=== PATIENT | female | born 1980 | race Caucasian/White ===

== ENCOUNTER 2019-11-01 19:19 | Emergency (ER) | payer BC ==
--- OUTSIDE RECORDS SUMMARY | 2019-11-01 19:48 | XMS REPORT | Continuity of Care Document ---
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 [place], 6075 [address], [place] tel:[phone] 0001 - [facility] Primary Intractable Oct-0 ANDREZ STEPHANIE. [facility], Edis Marti migraine with [address] aura with 8 [facility], Berto status [place], [place], [address]. [place] tel:[phone] [place], 6075 [address], [place] tel:[phone] 0001 - [facility] Walk[facility]In [facility] otitis 8-201 CHRISTOPHER. 33-57 [facility] mediaAcute 8 91 [facility] Nursery [place] [facility], [facility] [address], Street, unspecified [place], [address]. [facility], [place], al history of tel:[phone], [place] nicotine 4151 tel: dependence [phone] 0001 - S Primary Intractable ANDREZKAREN BROWN. [facility], Edis Marti migraine with 7-[address] aura without 8 [facility], Berto status [facility], [place], [address]. [place] bid tel:63 [place], [place], obesityNeuropa 6075 [address], [place] thyWhiplash tel: injury to [phone] neck, subsequent encounterBMI pediatric, 85% to less than 95th percentile for ageSprain of ligaments of cervical spine, initial encounterPerso n injured in unsp motor-vehicle accident, traffic, initBody mass index (BMI) 50-59.9 , adult 0001 - S Primary Migraine aura, 0 [facility]. [facility], Edis Marti persistent, 9-[address] intractable 8 [facility], Berto [place], [place], [address]. [place] tel:+63 [place], [place], 6075 [address], [place] tel: [phone] 0001 - S Primary Intractable ANDREZKAREN BROWN. [facility], Edis Marti migraine with 4-[address] aura without 8 [facility], Berto status [facility], [place], [address]. [place] erate episode tel:[phone] [place], [place], of recurrent 6075 [address], [place] major tel: depressive [phone] disorderNeurop athyMorbid obesityBody mass index (BMI) 50-59.9 , adult 0001 - S Primary Intractable ANDREZKAREN RAINEYAH. [facility] Inc, Edis Marti migraine with 8-[address] aura without 8 [facility], Berto status [facility], [place], [address]. [place] acco tel:[phone] [place], [place], dependenceBipo 6075 [address], [place] lar 2 disorder tel: [phone] 0001 - S Primary Major Shayne-2 BARBOUR [facility] Inc, Care depressive 6-201 RANDI. 4417 -57 [place] disorder, 8 Mark Berto recurrent, [facility], Street, moderateMorbid Mark, [place] (severe) [address]. [place], obesity due to tel:[phone], [place] excess 7365 tel:60 calories [phone] 0001 - [facility] Primary Migraine, ROOT COCO. [facility], Care [place] unspecified, 1-201 [address] , [address] [place] [address] not 8 [place], [address]. Street, without status tel:[phone] [place] migrainosus [address] [place] [address], [address], [place] tel: [phone] 0001 - [facility] Primary Migraine, ROOT COCO. [facility], Care [place] unspecified, 4-201 507 [facility], [address] [place] [address] not 8 [facility] [place], [address]. Street, without status tel:[phone] [place] migrainosus 6075 [place], [address], [place] tel: [phone] 0001 - [facility] Primary Intractable Dec-2 ROOT COCO. [facility], Edis aMrti migraine with 5-[address] aura with 8 [place], [place], [address]. Street, migrainosusAne tel:[phone] [place] mary jo, 6075 [place], [place], unspecified [address], [place] typeHypothyroi tel: dism, [phone] unspecified typeElevated glucose level 0001 - [facility] Primary Chronic Apr-0 ANDREZ BROWN. [facility], Care [place] midline low 4-[address] back pain with 8 SP, Berto left-sided [place], [place], [place], [address]. [place] chronic tel:[phone] [place], [place], painClass 3 6075 [address], [place] obesity tel:60 without [phone] serious comorbidity with body mass index (BMI) of 50.0 to 59.9 in adult, unspecified obesity typeBody mass index (bmi) 50-59.9 , adult 0001 - [facility] Body mass Mar-2 SALEEM [facility], Management index (BMI) 1-201 LUDY. 52 33-57 50-59.9 , [address], [address], spondylosisSpo 2, [place] Marti ndylolysis, [place], [place], [place] [address]. [address], [place] unspecifiedDor tel:[phone] tel:+60 salgia, 7468 [phone] unspecifiedObe sity, unspecified 0001 - [facility] Primary Hospital Nov- ANDREZ BROWN. [facility], Edis Marti discharge 4-201 507 [facility], [address] follow-upMigra 8 SP, Berto ine without [facility], [place], [address]. [place] without status tel:[phone] [place], [place], migrainosus, 6075 [address], [place] not tel:+60 intractableUns [phone] pecified asthma, uncomplicatedP neumonia, unspecified organismPerson al history of nicotine dependence 0001 - [facility] Walk-In Acute OFELIA PRASAD. [facility], Center pharyngitis, 9 [facility] 33-57 [facility] unspecified 8 [facility] Nursery [address], Street, [facility], [address]. [place], [place], tel:[phone], [place] 4151 tel:+[phone] 0001 - [facility] Primary Intractable ANDREZ BROWN. [facility], Edis Marti migraine with 1- [address] aura without 8 SP, Berto status [facility], [place], [address]. [place] pital tel:[phone] [place], [place], discharge 6075 [address], [place] follow-up tel:[phone] 0001 - [facility] Primary Acute ROOT COCO. [facility], Edis Marti left-sided low 8-[address] back pain 7 [place], [address]. Street, sciatica tel:[phone] [place] 6075 [place], [address], [place] tel:[phone] 0001 - S Walk-In Viral upper Dec-0 BERG CRISTOFER. S Inc, Center respiratory 7201 21 North 33-57 [facility] tract [address], B[place] Bridge infectionOther [place], [place], Street, viral agents [address], [place]. [place] as the cause tel:[phone] [place], of diseases 9816 [address], [place] classified tel:+60 elsewherePerso [phone] nal history of nicotine dependence 0001 - [facility] Bilateral low Nov-2 MUKESH S Inc, Management back pain with BELLA. 52 33-57 sciatica, 7 Berto Nursery sciatica [place], Street, laterality [facility] [place], [address]. [place], [place], anticoagulant tel:[phone], [place] therapyBody 5898 tel:+60 mass index [id number] (BMI) 45.0-49.9, adult 0001 - S Walk-In DysuriaUrinary Nov-1 HOWARD BEACHSTEIN S Inc, Center tract 9201 CHRISTOPHER. 33-57 [facility] infection, 7 91 [facility] Bridge site [address], Street, specified [facility], [address]. [place], tel:[phone], [place] 4151 tel:+60 [phone] 0001 - [facility] Ortho Acute pain of Nov-0 LOWRIE CASEY. [employer] [facility], Ctr Ortho left [facility] 4433 33-[address] Berto oral pain E, Mark, [place], [facility] [place], [address]. [place] left knee tel:[phone] [place], [place], 2220 [address], [place] tel:[phone] 0001 - S Ortho Pain in Nov-0 LOWRIE CASEY. S Inc, Ctr Ortho unspecified S 4433 33-[address] Berto E, Mark, [place], [address]. [place] tel:[phone] [place], [place], 2220 [address], [place] tel:+[phone] 0001 - [facility] WS Preop Nov-0 SHUKRI S Inc, Cardiology cardiovascular MYRIAM. 30 33-57 examPSVT 7 Berto Thomson (paroxysmal Street, Suite Street, supraventricul 250, [place] ar [facility], [place], [facility], [place], tachycardia) [address]. [address], [place] tel:[phone] tel:+ [phone] 0001 - [facility] Primary Major Oct-3 ROOT COCO. S Inc, Care [place] depressive 1 [address] , 33-57 City disorder, 7 [place], [facility], [address]. [address], [facility], tel:[phone] [place] unspecifiedCos 6075 [place], [place], tochondritis [address], [place] tel:+ [phone] 0001 - [facility] Mark Medication Jun- Perfect ChannelMERLYNAmedrixWarren State Hospital, IM Primary managementChro 6- YA MANUJA. Care julianne left-sided 4417 [facility] pain [facility], with Internal [place] left-sided Medicine, [place], [place], [place], [address], [place] chronic [address]. tel:+ painAcute pain tel:[phone] of left knee 7365 0001 - [facility] Mark Chronic Sep-2 Perfect ChannelSTEPANApportableMARTIN S [facility], IM Primary GERDBenign YA MANUJA. Care atrial 7 4417 Mark Berto arrhythmiaOthe [facility], [place], r pulmonary Internal [place] embolism Medicine, [place], [place], [place], [address], [place] cor pulmonale, [address]. tel: unspecified tel:[phone] chronicityHypo 7365 thyroidism (acquired)Pers onal history of nicotine dependence 0001 - [facility] Walk-In Acute Sep-1 BUFFUM S Inc, Center suprapubic 0-201 ISIS. 7 [facility] painExcessive 7 Mark Berto Bridge vaginal [facility], [place], bleeding [place], [place], [place] [address]. [place], [place], tel:[phone], [place] 2144 tel:[phone] 0001 - [facility] Primary Seborrheic Aug-2 ROOT COCO. S Inc, Care [place] dermatitisMigr 507 [facility] 3357 [facility] facundo, 7 [facility] [place], [address]. Street, not tel:[phone] [place] intractable, [address] [place] [address], without status [address], [place] migrainosusObe tel:+60 sity, [phone] unspecified obesity severity, unspecified obesity typeBody mass index (BMI) 45.0-49.9, adult 0001 - [facility] Walk-In Hypotension, INDIO CAMPBELL. [facility], Center unspecified [facility]7 [place] 33-[address], Street, [address]. [place] tel:[phone] [place], 2[address], [place] tel:[phone] 0001 - [facility] Primary Obesity, ROOT COCO. [facility], Care [place] unspecified [address] obesity 7 [facility] [place], [address]. Street, unspecified tel:[phone] [place] obesity [address] [place] [address], typeChest [address], [place] pain, tel:+60 unspecified [phone] typeMigraine, unspecified, not intractable, without status migrainosus 0001 - [facility] Walk-In Skin infection Nov- CLEM HORN. [facility], Center [facility]7 [place] 33-57 [facility] [address] [place] [address], Street, [address]. [place] tel:[phone] [place], 2[address], [place] tel:[phone] 0001 - [facility] Primary Neurotic Mar-0 KAREN [facility], Care [place] excoriationsPo LUDY. [facility] [address] lyarthralgia 7 [facility], Street, [facility], [address]. [place], tel:[phone], [place] 6075 tel:[phone] [phone] 0001 - [facility] Walk-In De Quervain's DC S [facility], Center tenosynovitis, NAYELI. 91 -57 [facility] rightViral URI 7 [facility] Berto Bridge with cough [address], Street, [facility], [place], [place], [address]. [address], [place] tel:[phone] tel:[phone] 0001 - S Ortho De Quervain's CATARINA S Inc, Ctr Ortho tenosynovitis, 0-201 IRENA. [facility] 57 right 7 [address] [facility] [address], Street, [place], [place] [address]. [place], tel:[phone], [place] 2220 tel:[phone] 0001 - [facility] Primary Wrist pain, JORGE S Inc, Care [place] right 7-201 UPASANA. 4417 -57 [facility] 7 [facility], [place], [place], [place] [address]. [place], tel:[phone], [place] 7365 tel:[phone] 0001 - S Walk-In Croup, KONEFAL S Inc, Center spasmodicAcute 3-201 KACZYNSKI 57 [facility] pharyngitis, 6 EDU. [address] Nurs[address] Bridge unspecifiedTob Main , [place], acco use [place], [place], [place] [address]. [place], tel:[phone], [place] 7171 tel:[phone] 0001 - S Primary Acute pain of DEMAINE MARY. S Inc, Care [place] left 4-201 507 [facility], -57 [facility] shoulderAcute 6 SP, Berto left-sided [place], [place], [place], [address]. [place] painArm tel:[phone] [place], paresthesia, 6075 [address], [place] leftLow back tel:+1-60 painCervicalgi [phone] a 0001 - S Primary Moderate Jun- KAREN S Inc, Care [place] episode of 3-201 LUDY. 507 33-57 City recurrent [address], Berto major [facility], Street, depressive [place], [place], [address]. [place], [place], tel:[phone], [place] 6075 tel:[phone] 0001 - S Primary Moderate Sep-2 KAREN [employer] Inc, Care [place] episode of LUDY. 507 33-57 City recurrent 6 Main , Nursery major SPC, Street, depressive [facility], [address]. [place], tel:[phone], [place] 6075 tel:[phone] 0001 - S Primary Tenderness of Sep-1 SHEIKH CHADWICK. [facility], Care [place] chest wall 507 [facility], 33-57 City 6 SPC, Berto [place], [place], [address]. [place] tel:[phone] [place], [place], 6075 [address], [place] tel:[phone] 0001 - S Primary GERD with Apr-0 KAREN [employer] [facility], Care [place] esophagitis LUDY. [address] [place] [address] 6 [facility], [facility], Street, [facility], [address]. [place], tel:[phone], [place] 6075 tel:[phone] 0001 - S Primary Gastro-esophag Apr-0 EKHLAS [employer] [facility], Care [place] eal reflux HOSSAIN. 7 -[address] [place] [address] disease 6 [facility], Nursery without SP, Street, esophagitisSpr [facility] [place], [address]. [place], [place], ankle, tel:[phone], [place] unspecified 6075 tel:+160 ligament, [phone] subsequent encounter 0001 - [facility] Primary Sprain of left Aug-0 KAREN [employer] Inc, Care [place] ankle, LUDY. [address] [place] [address] unspecified 6 [facility], Nursery ligament, SP, Street, subsequent [facility] [place], [address]. [place], [place], ity, walking, tel:[phone], [place] marching and 6075 tel:[phone] hiking [phone] 0001 - S Primary Weight loss Yosef-0 KAREN [employer] [facility], Care [place] counseling, LUDY. 507 33-57 [facility] encounter 6 [facility], Berto forObesity, [facility], Street, [place], [address]. [place], [place], severity, tel:[phone], [place] unspecified 6075 tel:+60 obesity [phone] typeSevere episode of recurrent major depressive disorder, without psychotic featuresSprain of other ligament of left ankle, subsequent encounterSprai n of other ligament of left ankle, initial encounterBody mass index (BMI) 50-59.9 , adult 0001 - S Pain in right Shayne-2 S Inc, Orthopedics kneePerson 3357 [place] consulting for 6 Nursery explanation of Street, [place], [address], [place] tel:+ [phone] 0001 - S Primary Right knee Shayne- KAREN S Inc, Care [place] injury, LUDY. 507 [facility] subsequent 6 [facility] encounterPatel [facility], Street, lofemoral [facility] [place], [address]. [facility], [place], both tel:[phone], [place] kneesUnspecifi 6075 tel:+60 ed injury of [phone] right lower leg, initial encounterPatel lofemoral disorders, left knee 0001 - S Pain in right Shayne- S Inc, Orthopedics knee [address] [place] [address], [place], [address], [place] tel: [phone] 0001 - S Primary Arthritis of Shayne-0 EKHLAS S Inc, Care [place] knee, right HOSSAIN. 507 57 [facility] 6 [facility], Berto [facility], Street, [place], [facility], [address]. [place], tel:[phone], [place] 6075 tel:+ [phone] 0001 - S [place] Encounter for JERAULD [employer] [facility], City therapeutic - WESTLEY. 4417 3357 Coumadin drug level 6 [facility], term (current) [facility] [place] [address]. [place], anticoagulants tel:[phone], [place] Personal 8833 tel:+1-60 history of [id number] other venous thrombosis and embolismEncoun ter for therapeutic drug monitoringLong -term Use of Anticoagulants Pulmonary Embolus 0001 - [facility] Primary Unspecified Apr-1 VAZQUEZ GLENN. [facility], [facility] asthma with 8201 3101 [address] 33-57 City (acute) [address] Road, Suite Nursery exacerbationTo 203, [place], [place], [place], [address]. [place] tel:[phone] [place], [place], 4822 [address], [place] tel:[phone] 0001 - S Walk-In Bronchitis Apr-0 SIRISHA HO. 4417 [facility], Center with 7 Mark 33-57 Mark bronchospasmTo 6 [facility] bacco use [place], [place], Street, [address]. [place] tel:[phone] [place], 2[address], [place] tel:[phone] 0001 - S Walk-In CroupTobacco Apr-0 WALKER [facility], Center use 4-201 LYNNETTE. 1302 33-57 [facility] [address] , [place], [place], Street, [address]. [place] tel:[phone] [place], [place], 2323 [address], [place] tel:[phone] 0001 - S Walk-In Right foot Mar-2 CRISTY WHITNEY. [facility], Center painActivity, 4433 Mark 33-57 [facility] other 6 [facility] specified Rheumatology, Street, [place], [place], [place] [address]. [place], tel:[phone], [place] 2879 tel:[phone] 0001 - [facility] Avulsion Mar-2 WARCHOCKI [facility], Orthopedics fracture of 201 CASEY. [facility] 33-57 [place] ankle, left, 33 Mark Nursery closed, Pkwy E, Street, initial [place], [place], [place] encounterOth [address]. [place], fracture of tel:[phone], [place] upper and 2220 tel:+1-60 lower end of [id number] left fibula, init 0001 [facility] Pain in Nov- WARCHOCKI [facility] Inc, Orthopedics unspecified CASEY. [facility] 33-57 [place] ankle and 6 4433 Mark Nursery joints of [address]kw[address], Street, unspecified [place], [place] [address]. [place], tel:[phone], [place] 2220 tel:[phone] [place] [address] Primary Avulsion Nov- HOSSAIN [facility] Inc, [facility] fracture of [facility] 3357 [facility] distal end of 6 -[address] [facility], EW3, [place], [place], [place], [address]. [address], [place] tel:[phone] tel:[phone] [place] [address] Sleep Sleep apnea, Nov- BHARATHI [facility], Center obstructiveAnx GERMAN. 93 3357 iety disorder, 6 [facility] [address], [facility], Street, y mass index [place] ([place], [address]. [place], 45.0-49.9, tel:[phone], [place] adultOther 2048 tel:+1-60 dorsalgiaGastr [phone] o-esophageal reflux disease without esophagitisSno ring 0001 [facility] Primary Intractable Nov-0 KAREN [facility] Inc, Care Fgiueroa migraine, LUDY. 507 [facility] unspecified [address] [place] [address], Nursery migraine [facility], Street, typeObstructiv [place], [address]. [place], tel:[phone], [place] 6075 tel:[phone] [place] [address] [place] Encounter for [facility] Inc, [facility] therapeutic 57 Coumadin drug level [address], term use of [place] anticoagulantP [place], ersonal [address], [place] history of tel:[phone] for therapeutic drug monitoringLong -term Use of Anticoagulants Pulmonary Embolus [address] [place] [address] Primary ImpetigoSprain CASEY [facility] Inc, Care [place] of other 7 CHRISTOPHER. 33-57 City ligament of [address], Nursery left ankle, [address]icable Street, sequelaPulmona Diseases, [place] ry [place], [place], [place], [place], [address]. [address], [place] term use of tel:[phone] tel:+ anticoagulant [phone] 0001 - S Sprain of left Oct- LOWRIE CASEY. [facility], Orthopedics ankle, 0-201 [facility] 4433 33-57 [place] unspecified [address] Nursery ligament, E, Mark, Street, [facility], [address]. [place] encounter tel:[phone] [place], [place], 2220 [address], [place] tel:+ [phone] 0001 - [facility] Primary Sprain Oct-0 NI ANIRUDH. [facility], Care [place] 4417 [place] [address], Street, [address]. [place] tel:[phone] [place], [address], [place] tel:+ [phone] 0001 - [facility] Figu[place] Encounter for Oct-0 [facility], [facility] therapeutic 57 Coumadin drug level 6 [facility], term (current) [place] use of [place], anticoagulants [address], [place] Personal tel:+[phone] history of [id number] pulmonary embolismEncoun ter for therapeutic drug monitoringLong -term Use of Anticoagulants Pulmonary Embolus 0001 - [facility] Primary Left ankle NI ANIRUDH. [facility] Inc, Care [place] strain, 4417 Mark 33-57 City subsequent 6 [facility], Nursery encounterStrai [place], [place], Street, n of [facility] [address]. [place] msl/tnd at tel:[phone] [place], ank/ft level, 7365 [address], [place] left foot, tel:[phone] 0001 - S Walk-In URI, OFELIA PRASAD. [facility], Center acuteTobacco 2- [facility] 91 33-57 [facility] use 6 [facility] Nurs[address], Street, [facility], [address]. [place], tel:[phone], [place] 4151 tel:[phone] 0001 - [facility] [place] Stress Sep- SHUMEYKO [facility] Inc, Gynecology incontinence 8-201 NATHAN. 4417 33-57 (female) 6 Mark Berto (male)Encounte [facility], r for other [place], [place], [place] specified [address]. [place], surgical tel:[phone], [place] aftercare 4496 tel:[phone] 0001 - [facility] [place] Family Sep- SHUMEYKO [facility], Gynecology planningStress 1-201 NATHAN. 4417 33-57 incontinence 6 Mark Thomson (female) [facility], (male)Other [place], [place] acute [address]. [place], postprocedural tel:[phone], [place] painBody mass 4496 tel:+160 index (BMI) [id number] 50-59.9 , adult 0001 - [facility] [place] Post-op Sep-0 BORDENET [facility] Inc, Gynecology painBody mass 8-201 LOREN. 52 33-57 index (BMI) 6 Berto Thomson 45.0-49.9, [place], adult [facility], [address]. [place], tel:[phone], [place] 5895 tel:[phone] 0001 - [facility] Primary Saddle embolus Sep-0 KAREN [facility], Care [place] of pulmonary 6 LUDY. 507 33-57 [facility] artery w/o 6 Main , Nursery acute cor SP, Street, pulmonale [facility], [address]. [place], tel:[phone], [place] 6075 tel:[phone] 0001 - [facility] [place] Pyuria Dec-3 NAYAN [facility], Gynecology 1-201 KAUSHAL. 4417 33-57 5 Mark Berto [facility], [place], [place], [place] [address]. [place], tel:[phone], [place] 4496 tel:[phone] 0001 - [facility] [place] Urinary tract Dec-3 SHUMEYKO [facility], Gynecology infection, NATHAN. 4417 3357 site not 5 Mark Berto specified [facility], [place], [place] [address]. [place], tel:[phone], [place] 4496 tel:[phone] 0001 - [facility] [place] Pre-procedure Dec-2 SHUMEYKO [facility], Gynecology lab exam NATHAN. 4417 33-57 5 Mark Berto [facility], [place], [place], [place] [address]. [place], tel:[phone], [place] 4496 tel:[phone] 0001 - [facility] Walk-In Blunt trauma, Nov- HOWARD BEACHSTEIN [employer], Center left eye, CHRISTOPHER. [facility] initial 5 91 [facility], ing against [place], [address]. [place], other objects, tel:[phone], [place] init encntr 4151 tel:[phone] 0001 - [facility] [place] Urinary tract Nov-2 SHUMEYKO [facility], Gynecology infection, NATHAN. [facility] 3357 site not 5 Mark Berto specified [facility], [place], [place], [place] [address]. [place], tel:[phone], [place] 4496 tel:[phone] 0001 - [facility] [place] Family Nov-1 SHUMEYKO [facility], Gynecology planningStress 2 NATHAN. 4157 33-57 incontinence 5 Markanalilia Thomson (female) [facility], (male)[place], [place] [address]. [place], pulmonary tel:[phone], [place] embolismUrinar 4496 tel:[phone] y tract [id number] infection, site not specifiedEncou nter for other preprocedural examination 0001 - [facility] Primary Pre-operative Nov- KAREN [facility], Care [place] clearanceAcute 2-201 LUDY. 507 33-57 City saddle [address], Nursery pulmonary SPC, Street, embolism [place], [address]. [facility], [place], cor tel:[phone], [place] pulmonaleEncou 6075 tel:[phone] nter for [id number] immunizationEn counter for sterilizationS tress incontinence (female) (male)Other pulmonary embolism without acute cor pulmonale 0001 - S Primary Bilateral low Nov-0 DEMAINE MARY. S Inc, Care [place] back pain with 2-[address], 33-57 City sciatica, 5 SP, Berto sciatica [place], [place], [address]. [place] unspecifiedSac tel:[phone] [place], rococcygeal 6075 [address], [place] pain tel:[phone] 0001 - S Walk-In Bilateral low Oct-2 INDIO CAMPBELL. S Inc, Center back pain with 4417 Mark 33-57 [facility] sciatica, 5 [facility] sciatica [place], [place], Street, laterality [address]. [place] unspecified tel:[phone] [place], 2144 [address], [place] tel:[phone] 0001 - S Mark Encounter for Oct- SHUMEYKO S Inc, Gynecology sterilizationS 5-201 NATHAN. 4417 33-57 tress 5 Mark Berto incontinence [facility], [place], (female) [place], [place] (male)Other [address]. [place], pulmonary tel:[phone], [place] embolism 4496 tel:[phone] without acute [phone] cor pulmonale 0001 - S Walk-In Chronic back Sep-2 WALKER S Inc, Center pain 6-201 LYNNETTE. 1302 33-57 [facility] [address], [facility] [place], [place], Street, [address]. [place] tel:[phone] [place], 2323 [address], [place] tel:[phone] 0001 - S Primary DepressionAlle Sep-1 KAREN S Inc, Care [place] rgyHerpetic 4-201 [address]UDY[address] whitlowEncount 5 [facility] er for smoking [facility], Street, cessation [facility], [address]. [place], onary embolism tel:[phone], [place] 6075 tel:[phone] 0001 - S [place] Stress Sep-0 NAYAN S Inc, Gynecology incontinenceAb 9-201 KAUSHAL. [facility] 33-57 normal 5 Mark Nursery PapVulvar [facility], lesion [place], [place] [address]. [place], tel:[phone], [place] 4496 tel:[phone] 0001 - S Mark Routine Aug-3 NAYAN [facility], Gynecology Gynecological KAUSHAL. [facility] 33-57 ExamPersonal 5 Mark Nursery history of [facility], pulmonary [place], [place], [place] embolismStress [address]. [place], incontinenceCo tel:[phone], [place] ntraception 4496 tel:[phone] 0001 - S Primary Melanocytic Aug-2 KAREN S Inc, Care [place] nevus 4-201 LUDY. [facility] [address] [place] [address], Street, [facility], [address]. [place], tel:[phone], [place] 6075 tel:[phone] 0001 - S Primary Migraine Aug-1 STRZALKA S Inc, Care [place] 4-201 ALEXIA. [facility] [address], Street, [facility], [address]. [place], tel:[phone], [place] 6075 tel:[phone] 0001 - S Primary Atypical Aug-1 KONEFAL S Inc, Care [place] nevusNeop, 0-[address] bng, skin, arm 5 EDU. 1302 E [facility], [place], [facility] [address]. [place], tel:[phone], [place] 7171 tel:[phone] 0001 - [facility] Primary Migraine Aug-0 CALDERON MILTON. [facility], Care [place] 6-201 4433 Mark 3357 [facility] [address], [place], [place], Street, [address]. [place] tel:[phone] [place], 2220 [address], [place] tel:[phone] 0001 - [facility] Walk-In Pharyngitis, Shayne-2 SIRISHA HO. 4417 [facility], Center acuteStrep 9-201 Mark 33-57 [facility] pharyngitis 5 [place], [place], [place], Street, [address]. [place] tel:[phone] [place], 2144 [address], [place] tel:[phone] 0001 - [facility] Walk-In URI Shayne-2 OFELIA PRASAD. [facility], Center 8-201 [facility] 91 33-57 [facility] 5 [facility], Street, [facility], [address]. [place], tel:[phone], [place] 4151 tel:[phone] 0001 - [facility] Walk-In Gastroenteriti May-0 ZARRINI [facility], Center sBack pain 1-201 JEREMY. 1302 33-57 [facility] [address] MA[address] , [facility], [place], [place], [place], [place] [address]. [place], tel:[phone], [place] 7171 tel:[phone] 0001 - [facility] Walk-In Lumbar Apr-1 TOKOS MANUEL. [facility], Center strainCumulati 1201 [address] 33-57 [facility] ve Trauma From [address] St, [place], [place], Street, [place] [address]. [place] tel:[phone] [place], 7[address], [place] tel:[phone] 0001 - [facility] Primary Back pain Apr-1 YUMIKO ROSE. [facility] Inc, Care [place] 0-201 4433 Mark 33-57 [facility] [address], [place], [place], Street, [address]. [place] tel:[phone] [place], 2220 [address], [place] tel:[phone] 0001 - S Walk-In Cough OFELIA PRASAD. [facility] Inc, Center 3-201 [facility] 91 33-57 [facility] 5 [facility] [address], Street, [facility], [address]. [place], tel:[phone], [place] 4151 tel:[phone] 0001 - S Walk-In URI, acute DC S Inc, Center 1-201 NAYELI. 91 33-57 [facility] 5 [facility] B[address], [place], [facility], [place], [address]. [address], [place] tel:[phone] tel:[phone] 0001 - S Walk-In Cough CONSOLAZIO [facility] Inc, Center 0-201 MARJAN. [facility] 33-57 Mark 5 [facility], [place], [place], [place] [address]. [place], tel:[phone], [place] 2144 tel:[phone] 0001 - S Walk-In Sciatica OFELIA PRASAD. [facility] Inc, Center 0-201 [facility] 91 33-57 [facility] 5 [facility] [address], Street, [facility], [address]. [place], tel:[phone], [place] 4151 tel:[phone] 0001 - [facility] Primary ObesityBMI January DEANA. [facility] Inc, Care [place] 40.0-44.9, 6-201 142 Rob[place] 33-57 [place] adultDietary 5 [facility] counseling in SPC, Street, obesity [facility], [address]. [place], tel:[phone], [place] 2660 tel:[phone] 0001 - [facility] Primary Anxiety YUMIKO ROSE. [facility] Referring [facility], Care [place] disorderTachyc 33 [place] Provider: 3357 [facility] ardia [address], [place] Thomson [place], [place], H, [facility] Street, [address]. 4433 [place] tel:[phone] [place], [place], [address], [address], [place], tel:+60 [place], [address]. [id number] tel:[phone] 2019 - [facility] Primary Encounter for Dec- [facility] Referring [facility], Care [place] therapeutic 5 COUMADIN Provider: [address] [place] [address] drug 4 CLINIC. 507 COUMADIN [facility], -term use of SP, [facility], 507 [place] [facility], [place], [place], [place], [address]. [facility], [address], [place] history of tel:[phone] [place] tel:+ pulmonary 6075 [place], [place], [id number] embolism [address]. tel:[phone] 2019 - [facility] Primary Palpitations Dec-0 YUMIKO ROSE. [facility], Care [place] 1 [address] [place] [address] [address], [place], Street, [address]. [place] tel:[phone] [place], 2220 [address], [place] tel:[phone] 2019 - [facility] Walk-In Acute Nov- [facility], Center conjunctivitis [place]. [address] [place] [address] 4 91 [facility], Street, [facility], [address]. [place], tel:[phone], [place] 4151 tel:[phone] 2019 - [facility] Primary Tachycardia Nov-1 YUMIKO ROSE. [facility] Referring [facility], Care [place] 8 4433 Mark Provider: [address] [place] [address] [address], [place]TON Thomson [place], [place], H, [facility] Street, [address]. 4433 [place] tel:[phone] [place], [place], [address], [address], [place], tel:+60 [place], [address]. [phone] tel:[phone] 2019 - Emergency Migraine Oct- YUMIKO ROSE. [facility] Inc, 1-201 4433 Mark 33-[address], [place], [place], Street, [address]. [place] tel:[phone] [place], 2220 [address], [place] tel:[phone] 0001 - [facility] Primary Encounter for Oct-1 JCFCC Referring [facility] Inc, Care [place] therapeutic 3-201 COUMADIN Provider: [address] [place] [address] drug 4 CLINIC. 507 COUMADIN Berto [facility] Street, -term use of [facility], [facility], 507 [place] anticoagulants [place], [place], [address]. [facility], [address], [place] embolism tel:[phone] [place] tel:[phone] [place], [place], 99[address]370 [address]. tel:[phone] 0001 - [facility] Primary Migraine Oct-0 KONEFAL [facility] Inc, Care [place] 3-201 KALISAYNSKI 33-57 [facility] EDU. [address] [place], [place], [place] [address]. [place], tel:[phone], [place] 7171 tel:[phone] 0001 - [facility] Walk-In Pediculosis Sep-2 OFELIA PRASAD. [facility], Center 9-201 SW 91 33-57 [facility] 4 [facility] Nursery [place] , Street, [facility], [address]. [place], tel:[phone], [place] 4151 tel:[phone] 0001 - [facility] Mark Encounter for Sep-2 LAKHANI [facility] Inc, Cardiology therapeutic 3-201 CATRACHO. 4417 33-57 drug [address] [facility], -term use of [place], [place] anticoagulants [address]. [place], Pulmonary tel:[phone], [place] embolism 8833 tel:[phone] 0001 - [facility] Primary Encounter for Sep-2 JCFCC Referring [facility] Inc, Care [place] therapeutic 2-201 COUMADIN Provider: [address] [place] [address] drug 4 CLINIC. 507 COUMAD[address] Berto [facility] Street, -term use of [facility], [facility], 507 [place] anticoagulants [place], [place], [place], [address]. [facility], [address], [place] embolism tel:+63 [place] tel:+ 6075 [place], [place], 898[address]287 [address]. tel:[phone] 0001 - [facility] Primary Back Sep-1 [facility] Inc, Care [place] painObesityOpi 0-201 33-57 [facility] ate addiction 4 [place], [address], [place] tel:[phone] 0001 - [facility] Primary Encounter for Sep-0 JCFCC [facility], Care [place] therapeutic 8-201 COUMADIN 33-57 [facility] drug 4 CLINIC. 507 [facility], -term use of [facility], [place] anticoagulants [place], [place], [place], [address]. [address], [place] history of tel:[phone] tel: pulmonary [phone] embolism 0001 - [facility] Primary Opiate Aug-2 [facility] Inc, Care [place] addictionChron 7-201 33-57 [facility] ic low back 4 [place], [address], [place] tel:[phone] 0001 - [facility] Primary Encounter for Aug-2 JCFCC [facility], Care [place] therapeutic 5-201 COUMADIN 33-57 [facility] drug 4 CLINIC. 507 [facility], -term use of [facility], [place] anticoagulants [place], [place], [place], [address]. [address], [place] history of tel:[phone] tel: pulmonary 6075 [phone] embolism 0001 - [facility] Primary Back pain Aug-1 YUMIKO ROSE. [facility] Inc, Care [place] 9-201 [address] [place] [address] [address], [place], [place], Street, [address]. [place] tel:[phone] [place], [place], 2220 [address], [place] tel:[phone] 0001 - [facility] Primary Encounter for Aug-1 JCFCC [facility], Care [place] therapeutic 8-201 COUMADIN 33-57 [facility] drug 4 CLINIC. [address], [address], -term use of [facility], [place] anticoagulants [place], [address]. [address], [place] embolism tel:[phone] tel:[phone] 0001 - [facility] Primary Encounter for JCFCC Referring [facility] Inc, Care [place] therapeutic 5-201 COUMADIN Provider: [address] [place] [address] drug CLINIC. 507 COUMADIN Berto [facility] Street, -term use of [facility], [facility], 507 [place] anticoagulants [place], [place], [address]. [facility], [address], [place] embolism tel:[phone] [place] tel:[phone] [place], [place], 06633182 [address]. tel:[phone] 0001 - [facility] Primary Encounter for [facility] Inc, Care [place] therapeutic 8-[address] [place] [address] drug CLINIC. 507 Berto [facility], -term use of [facility], [place] anticoagulants [place], [address]. [address], [place] embolism tel:[phone] tel:[phone] 0001 - [facility] Primary Back pain YUMIKO ROSE. S [facility] Inc, Care [place] 4-201 [address] [place] [address] Pkw[address], [place], [place], Street, [address]. [place] tel:[phone] [place], 2220 [address], [place] tel:[phone] 0001 - S Primary Encounter for [facility] Inc, Care [place] therapeutic 4-201 [address] [place] [address] drug CLINIC. 507 Berto [facility], Street, -term use of [facility], [place] anticoagulants [place], [address]. [address], [place] embolism tel:[phone] tel:[phone] 0001 - [facility] Primary Encounter for [facility] Inc, Care [place] therapeutic 1-[address] drug CLINIC. 507 Berto [facility], -term use of [facility], [place] anticoagulants [place], [place], [address]. [address], [place] embolism tel:[phone] tel:[phone] 0001 - [facility] Primary Pulmonary Mar- YUMIKO MILTON. [facility] Inc, Care [place] embolism 7-[address], [place], [place], Street, [address]. [place] tel:[phone] [place], 2220 [address], [place] tel:[phone] 0001 - [facility] Primary Encounter for Mar- JCFCC [facility] Inc, Care [place] therapeutic 7- COUMADIN [address] [place] [address] drug [address] [place] [address], -term use of SP, [place] anticoagulants [place], [place], [place], [address]. [address], [place] embolism tel:[phone] tel:[phone] 0001 - [facility] Primary Migraine Shayne- [facility], Care [place] 8 -[address] [place] [address] 4 [facility], [place], [address], [place] tel:[phone] 0001 - [facility] Primary Lumbago with January- YUMIKO ROSE. [facility], Care [place] sciatica 0-[address], [place], [place], Street, [address]. [place] tel:[phone] [place], 2220 [address], [place] tel:[phone] 0001 - [facility] Primary Back pain January- YUMIKO ROSE. [facility], Care [place] 3-[address], [place], [place], Street, [address]. [place] tel:[phone] [place], 2220 [address], [place] tel:[phone] 0001 - [facility] Primary Chronic low Apr-2 SABA GILLIAM. Referring [facility] Inc, Care [place] back painOther [address] [place] [address], Provider: [address] [place] [address] Chronic Pain 4 [facility], MANE Thomson Dungannon[place], [address] [place] [address], [address]. [facility] tel:[phone] [facility], [place], [place], 6075 [place] [address], [place], [place], tel:+ [phone] tel:[phone] 0001 - [facility] Primary Back pain Apr-2 SULEMAN GARNER. [facility], Care [place] 3-201 OLL [address] [place] [address] 4 [place], [place], Street, [address]. [place] tel:[phone] [place], 2460 [address], [place] tel:[phone] 0001 - [facility] Primary Lumbar back Apr-2 YUMIKO ROSE. [facility] Referring [facility], Care [place] pain 3 4433 Mark Provider: [address] [place] [address] [address], MILTON CALDERON [facility], [place], H, [facility] Street, [address]. 4455 [place] tel:[phone] [place], [place], [address], [address], [facility], tel:+60 [place], [phone]. [phone] tel:[phone] 0001 - [facility] Primary Left lumbar Apr-0 [facility] radiculitis 8-201 MASSIEL. 800 33-57 4 [place], [place], Street, [address]. [place] tel:[phone] [place], 299[address], [place] tel:[phone] 0001 - [facility] Primary Abdominal Oct-1 [facility] PainBackache 5-201 MASSIEL. [facility] 33-57 3 [place], [place], Street, [address]. [place] tel:[phone] [place], 7[address], [place] tel:[phone] 0001 - [facility] Walk-In SinusitisBronc Sep-2 Referring [facility], Center hitisBronchiti 8 Provider: Mark s, Acute [address] [facility], Street, 4401 [place], [place], Pkwy E, [address], [place] Mark, tel:[phone] [place], [phone]. [phone] 0001 - [facility] Primary Lumbago with Aug- [facility], Care [place] sciatica 9-201 MASSIEL. 800 33-[address], [place], [place], Street, [address]. [place] tel:[phone] [place], [address], [place] tel:[phone] 0001 - [facility] Walk-In Otitis media Mar- Referring S Inc, Center NOSOtitis 6-201 Provider: 33-57 Mark media NOS [address] [facility], Street, 4401 [place], [place], Pkwy [address], [address], [place] Mark, tel:[phone] [place], [phone]. [phone] 0001 - S Walk-In Upper Mar- CONSOLAZIO Referring [facility], Center Respiratory 4-201 MARJAN. 4417 Provider: 33-57 Mark Infection, 3 Mark WALKIN [facility], [place], Street, [place], 4401 [place] [address]. [place], [place], tel:[phone] Pkwy [address], [address], [place] 2144 [place], tel:+60 [place], [phone]. [phone] 0001 - [facility] Walk-In Back pain in January- TOLLIVER Referring S [facility], Center pregnancyCompl 1- DIMPLE. Provider: 33-57 [facility] ication oth 3 4417 Mark WALKIN [facility] [place] spec preg, [facility], [facility], unspec [place], [place]. [place] episodeComplic [address]. [place], ation oth spec tel:[phone], [place] preg, unspec 2144 tel:[phone] 0001 - [facility] Primary Abdominal Apr-0 FOSTER S Inc, Care [place] PainAbdominal 5-201 MALENA. 800 33-[address], [place], [place], Street, [address]. [place] tel:[phone] [place], [place], [address], [place] tel:[phone] 0001 - [facility] Primary Abdominal Mar-1 [employer] S [facility], [facility] [place] PainUpper 9-201 MASSIEL. 800 33-[address], Nursery Infection, [place], [place], Street, AcuteAbdominal [address]. [place] PainUpper tel:[phone] [place], [place], Respiratory [phone], [place] Infection, tel:[phone] 2019 - [facility] Primary Abdominal Mar-1 [facility] S Inc, [place] PainAbdominal 1-201 MASSIEL. 800 33-57 PainLumbago 3 [facility], [place], [place], Street, [address]. [place] tel:[phone] [place], [place], [phone], [place] tel: [phone] 2019 - [facility] Primary LumbagoStrain Feb-1 [facility] Referring S Inc, [place] of lumbar 3-201 MASSIEL. 800 Provider: 33-57 regionAbdomina 3 [facility], MASSIEL [place], [place], [facility], [place], PainLumbagoLum [address]. 800 Shannan Marti bar Sprain Or tel:[phone] [place] [facility], [place], [place], StrainAbdomina [address] [place] [address], [address], [place], [address]. tel: tel: [phone] 2019 - [facility] Primary Abdominal Feb-0 [facility] Referring S Inc, Care [place] PainAbdominal 5-201 MASSIEL. 800 Provider: 33-57 Pain 3 [facility], [place], [place], [facility], Street, [address]. Eder Marti tel:[phone] [facility], [place], [place], [facility]4 [place], [address], [place], [address]. tel: tel: [phone] 2019 - [facility] Primary Huy-2 [facility] Inc, Care [place] test/exam, 8-201 MASSIEL. 800 33-57 positive 3 [facility] [place]and[place], [place], Street, l [address]. Figueroa painGERDAbdomi tel:[phone] [place], nal PainGERD [address], [place] tel: [phone] 2019 - [facility] Walk-In Positive Sep- Referring S Inc, Center test 7201 Provider: 33-57 [facility] 3 [address]ALK[address] [place] [facility], [facility], [address], [place] tel:+ [phone] 2019 - [facility] Walk-In Sinusitis, Nov-1 JAE MEYERS. Referring [facility], Center AcuteSinusitis 3201 110 Central Provider: 33-57 Chris , Acute [address], MARVA [place], [place], [facility], [address]. HENRYLeif Marti tel:[phone] [place], [place], [address], [place] tel: [phone] 2019 - [facility] Primary Abdominal Nov-0 SKIADAS Referring [facility], Care [place] PainNausea And 7 MASSIEL. 800 Provider: 33-[address], MASSI[place] Thomson nal PainNausea [place], [place], [facility], [place], And Vomiting [address]. 800 Shannan Marti tel:[phone] [facility], [place], [place], [facility]4 [place], [address], [place], [address]. tel: tel:[phone] 0001 - [facility] Primary Abdominal Nov-0 SKIADAS Referring [facility], Care [place] PainNausea And 1 MASSIEL. 800 Provider: 33-57 VomitingAbdomi 2 Shannan Johnston, MASSI[place] Thomson nal PainNausea [place], [place], [facility], And Vomiting [address]. 800 Shannan Marti tel:[phone] Road, [place], [place], 0444 [place], [address], [place], [address]. tel: tel:[phone] 2019 - [facility] Primary Abdominal Oct-1 SKIADAS Referring [facility], Care [place] PainGastroente 6-201 MASSIEL. 800 Provider: 33-[address], [place] Thomson PainNoninfecti [place], [place], [facility], ous [address]. 800 Shannan Marti Gastroenteriti tel:[phone] Road, [place], [place], s 0444 [place], [address], [place], [address]. tel: tel:[phone] 2019 - [facility] Primary Abdominal Sep-2 SKIADAS [facility] Inc, Care [place] PainDiarrhea 8-201 MASSIEL. 800 33-[address], [place], [place], Street, PainDiarrhea [address]. [place] NOSBackache tel:[phone] [place], [place], [address], [place] tel:[phone] 0001 - [facility] Primary Back pain Mar- S Inc, Care [place] 5-201 33-57 2 [place], [address], [place] tel:[phone] 0001 - [facility] Primary BackacheAbdomi Shayne- S Inc, Care [place] nal 9- 33-57 PainBackacheAb 2 [facility] [place], [address], [place] tel:[phone] 0001 - [facility] Primary Back pain January- S Inc, Care [place] 1- 33-57 2 [place], [address], [place] tel:[phone] 0001 - [facility] Walk-In Injury, OFELIA PRASAD. Referring [facility], [place] superficial, 3-201 SWIC 91 Provider: 33-57 [facility] corneaInjury, 2 [facility], [facility] [address], [facility], corneaInjuryUNC [place], [address]. [place], cornea tel:[phone], [place] 4151 tel:[phone] 0001 - [facility] Primary Sciatica Due Dec-3 SKIADAS Referring [facility], Care [place] To 0-201 MASSIEL. 800 Provider: 33-57 Displacement 2 MASSIEL [facility] [place], [place], [facility], Street, DiscSciatica [address]. 800 Shannan Marti Due To tel:[phone] Road, [place], [place], Displacement 0444 [place], [address], [place], [address]. tel:+60 DiscSciatica tel:[phone] Due To [id number] Displacement Of Lumbar DiscObesity 0001 - [facility] Primary Back pain Dec- S Inc, Care [place] 0-201 33-57 2 [place], [address], [place] tel:+ [phone] 0001 - S Primary Lumbago due to Mar-2 SKIADAS S Inc, Care [place] displacement 7-201 MASSIEL. 800 33-57 of 2 [facility], Nursery intervertebral [place], [place], Street, disc [address]. [place] tel:[phone] [place], [place], [address], [place] tel:[phone] 0001 - S Primary Depression Mar-2 S Inc, Care [place] 0-201 33-57 2 [facility], [place], [address], [place] tel:+ [phone] 0001 - S Primary Bipolar Mar-1 [facility] Inc, Care [place] affect, 6-201 MASSIEL. 800 33-57 depressedLumba 2 [facility] goRadiculiEunice, [place], Street, lumbosacralBip [address]. [place] olar affect tel:[phone] [place], disord, [address], [place] depressed, tel:[phone] unspecifiedLum [phone] bagoRadiculiti s, Thoracic or Lumbar 0001 - S Walk-In UTIUrinary Oct- Referring S Inc, Center Tract Provider: 33-57 [facility] InfectionHerpe 2 [address] s, genital CHENANGO [place], NOSUrinary BRIDGE. [place], [place], InfectionHerpe [address], [place] s, genital tel:[phone] NOSUrinary [phone] Tract InfectionHerpe s, genital NOSUrinary Tract InfectionHerpe s, genital NOSUrinary Tract InfectionHerpe s, genital NOS 0001 - S Primary Abdominal b- [facility] Inc, Care [place] PainGERDDiarrh 33-57 ea 2 Nursery NOSAbdominal [place], PainGERDDiarrh [place], [place], NOSAmenorrhea [address], [place] tel:[phone] 0001 - S Primary Dehiscence of Aug- SKIADAS Referring S Inc, Care [place] closure of 2-201 MASSIEL. 800 Provider: 33-[address], [place] Cellulitis [place], [place], SKIADAS, Street, [address]. 800 Shannan Figueroa tel:[phone] Road, [place], [place], 0444 [place], [address], [place], [address]. tel: tel:[phone] 0001 - [facility] Primary Abdominal Dec- [facility], Care [place] PainDiarrhea 5- MASSIEL. [facility] 57 NOSAbdominal 1 [facility] [place], [place], Street, N[place] [address]. Figueroa tel:[phone] [place], [facility]4 [address], [place] tel:+ [phone] 2019 - [facility] Primary Abdominal pain Jun- [facility], Care [place] UNSPCF SITEAbdominal [address] [facility] [place], [place], [address], [place] tel: [phone] 2019 - [facility] Walk-In Urinary Tract JAE MEYERS. Referring [facility], Center InfectionUrina 110 Central Provider: [facility] ry Tract [address], WALK[place] InfectionUrina [place], [place], [facility], ry Tract [address]. BRIDGE. [place] InfectionUrina tel:[phone] [place], [place], ry Tract [address], [place] Infection tel: [phone] 2019 - [facility] Primary Mar- SAXENA AMINA. [facility], [facility] Figueroa 6-200 [facility] [address], [address]. Figueroa tel:[phone] [place], [place], [address], [place] tel:[phone] Family History Family Member Diagnosis Age At Onset Maternal uncle Family history of Thyroid disease Father Melanoma No family history of Cancer, colon Maternal uncle hole in aorta (Cause Of ) No family history of Cancer, breast Paternal grandfather Leukemia Paternal grandmother Stroke Maternal aunt Cancer, cervical Maternal uncle Sister Bipolar disorder Father [place] 55 Immunizations Vaccine Date Status Comments Influenza, injectable, administered Source: New Immunization quadrivalent, preservative Record free, split virus Influenza, injectable, administered Source: New Immunization quadrivalent, preservative Record free, split virus Influenza, injectable, administered Source: New Immunization quadrivalent, preservative Record free, split virus 5130-8962 Hep B, adult, 3 dose administered Source: New Immunization Record Influenza, injectable, administered Source: New Immunization quadrivalent, preservative Record free, split virus 3 years or older, Fluarix Quad 3660-8579 TDAP (Boostrix or Adacel) administered Source: New Immunization Record Pneumo (2 yrs and older) administered Source: New Immunization (PPV23) Record Fluarix, Flulaval, or Flluzone administered Source: New Immunization Quad Record hep B (adult) administered Note: Abstracted -04/16/2007 ; Source: New Immunization Record Td (adult) administered Note: Abstracted -04/16/2007 ; Source: New Immunization Record hep B (adult) administered Note: Abstracted -04/16/2007 ; Source: New Immunization Record MMR administered Note: Abstracted -04/16/2007 ; Source: New Immunization Record OPV administered Note: Abstracted -04/16/2007 ; Source: New Immunization Record DTP administered Note: Abstracted -04/16/2007 ; Source: New Immunization Record MMR administered Note: Abstracted -04/16/2007 ; Source: New Immunization Record OPV administered Note: Abstracted -04/16/2007 ; Source: New Immunization Record DTP administered Note: Abstracted -04/16/2007 ; Source: New Immunization Record DTP administered Note: Abstracted -04/16/2007 ; Source: New Immunization Record OPV administered Note: Abstracted -04/16/2007 ; Source: New Immunization Record DTP administered Note: Abstracted -04/16/2007 ; Source: New Immunization Record OPV administered Note: Abstracted -04/16/2007 ; Source: New Immunization Record DTP administered Note: Abstracted -04/16/2007 ; Source: New Immunization Record Payers Payer name Insurance type Covered constitution party ID Authorization(s) Nba Lovell [id number] [place] Plan [place]FABIANO Lovell [id number] [place] Plan [place] [id number] BX Sam FHP Burton Lovell [id number] BX Sam FHP Burton Lovell [id number] BX Sam FHP Burton Lovell [id number] BX Sam FHP Burton Lovell [id number] Social History Type Description Quantity Date Captured Comments Alcohol Use Details Unknown Caffeine Use Details Unknown Tobacco Use Status Unknown Smoking Status Unknown Vital Signs Date / Height Weight BMI Pulse Blood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 bariatric program will have helped you with your back pain so that you may be able to walk better again. See me in a month to touch base! Please join the [facility] by the end of Related to Class 3 obesity without this week. I will refer you to the serious comorbidity with body mass [facility] Bariatric team for evaluation. index (BMI) of 50.0 to 59.9 in Continue to keep your diet low in adult, unspecified obesity type refined sugars and high in vegetables and lean meats. Dietary needs education Related to Body mass index (BMI) 50-59.9 , adult You are improving! Continue finishing Related to Hospital discharge the antibiotics and use the inhaler follow-up as needed. Visit me within the next month for a Wellness exam. If your migraine does not get better Related to Migraine without aura and with your medications at home, come without status migrainosus, not to the office instead of the ED. intractable Reassurance. (self-limited). Fluids. Related to Acute pharyngitis , Throat lozenges. unspecified etiology Please follow up with Dr. Doshi as Related to Intractable migraine with well as Dr. Priest and Je. Come to aura without status migrainosus see us instead of going to the ED if you have severe migraines. See me in 1 month for a wellness exam. I also provide Osteopathic Manipulative treatment. If you're interested, please make an appointment for OMT to address your migraines. Thank you for coming in today, you Related to Acute left-sided low back can apply heat or ice to your back. pain without sciatica You can take tylenol as needed. Please follow up in 2 weeeks. Delsym cough Mucinex for 5 days with Related to Viral upper respiratory plenty of waterAlbuterol neb 3x a day tract infection for the next 3 days then as needed You have been diagnosed with a upper respiratory tract infection today. Warm steam, mist, humidifier and warm fluids will help to thin secretions. To prevent dehydration, drink plenty of fluids, enough so that your urine is light yellow or clear like water. Choose water and other caffeine-free clear liquids until you feel better. You can take Tylenol for pain, fever, and discomfort. If you are taking over the counter medications with other medications be sure you are not double dosing yourself as some of the medications have more than one medication in them. Try to get plenty of rest. If her symptoms do not improve seek further evaluation and treatment. Thank you for choosing [facility]. We hope that you will be feeling better soon. Any condition can change and some diseases may worsen despite proper treatment. Other problems may begin with vague or unusual symptoms and only over time will the problem become more clear, making it possible to arrive at the correct diagnosis. Your visit today is not a substitute for or an effort to provide complete medical care. In most cases, you should let your primary care doctor check you again. Tell your doctor about any new or lasting problems. If you do not have a primary care provider, you have been given a list today of local providers who are accepting new patients. All xrays are interpreted by a radiologist, usually within 48 hours. If there is any important difference between the radiologists interpretation and what you were told today by the provider you will be notified. If you had cultures done today, results will be available in 72 hours depending on specimen. She's aware that her weight Related to Body mass index (BMI) contributes to back pain. Continues 45.0-49.9, adult to struggle with weight loss. Begin physical therapy. Obtain MRI Related to Bilateral low back pain of lumbar spine.Please obtain x-rays with sciatica, sciatica laterality and/or MRI prior to next appointment. unspecified My office will call you for MRI scheduling after insurance authorization is obtained, if required. You may take your x-ray order directly to any radiology department for completion. The office will call you with any urgent concerns, otherwise results will be reviewed at your next office appointment. You have been diagnosed with a Related to Urinary tract infection , urinary tract infection today and site not specified will be started on antibiotics, take the antibiotics as prescribed and be sure to finish the entire course even if feeling better, be sure to rest and drink plenty of fluids, tylenol/motrin can be used for pain per manufactures instructions, cranberry juice can also help in treating urinary tract infections. A warm heating to lower abdomen area can be soothing, do not go to sleep with this on your skin as it could burn you. To prevent UTIs be sure to urinate frequently when you feel the need, do not hold your urine. If female after using the bathroom be sure to wipe from front to back to prevent rectal bacteria from getting into the vulva/urethra. Avoid tight fitting/synthetic underwear, cotton underwear is best. Return or go to the ER if your symptoms worsen, if you have any fevers/chills, worsening pain or are unable to urinate. Urine culture results will be available in 2-3 days. Thank you for choosing the [facility]. We hope that you will be feeling better soon. Any condition can change and some diseases may worsen despite proper treatment. Other problems may begin with vague or unusual symptoms and only over time will the problem become more clear, making it possible to arrive at the correct diagnosis. Your visit today is not a substitute for, or an effort to provide complete medical care. In most cases, you should let your primary care doctor check you again. Tell your doctor about any new or lasting problems. If you do not have a primary care provider, you have been given a list today of local providers who are accepting new patients. All x-rays are interpreted by a radiologist, usually within 48 hours. If there is any important difference between the radiologists interpretation and what you were told today by the provider, you will be notified. If you had cultures done today, the results will be available in 72 hours, depending on the specimen. The chest pain that you experienced Related to Costochondritis yesterday was likely musculoskeletal. Please make sure to call our office next time before going to ED so that we can avoid ED visits if possible . Thank you for coming in today! I Related to Major depressive would like for you to sign a release disorder, single episode, form so that we can get records from unspecified when you were at [facility] and from the psychiatrist you are seeing. You have been receiving ECT and you are requesting medical clearance however you have not followed up with the maintenance construction helper. Please make sure you follow up with cardiology. Use Tylenol /ice/rest /nakia wrap over Related to Acute pain of left knee the knee, Pl transfer records from [place] Related to Medication management ,abdominal pain management with Lyrica.f/u in 3 months if you decide to continue with care with us. Current thyorid medication dose is Related to Hypothyroidism ( acquired) adequte.F/U in 4 months. Because of your persistent right Related to Acute suprapubic pain lower quadrant and suprapubic pain, in conjunction with your reported increaed vaginal bleeding while on coumadin, it is recommended that you go to the Emergency Room for further workup to rule out a JAVA ANALYST pathology, and to ensure hemodynamic stability while on blood thinners. Thank you for choosing the [facility] In. We hope that you will be feeling better soon.Any condition can change and some diseases may worsen despite proper treatment. Other problems may begin with vague or unusual symptoms and only over time will the problem become more clear, making it possible to arrive at the correct diagnosis. Your visit today is not a substitute for, or an effort to provide complete medical care. In most cases, you should let your primary care doctor check you again. Tell your doctor about any new or lasting problems. If you do not have a primary care provider, you have been given a list today of local providers who are accepting new patients. All x-rays are interpreted by a radiologist, usually within 48 hours. If there is any important difference between the radiologist's interpretation and what you were told today by the provider, you will be notified. If you had cultures done today, results will be available in 72 hours, depending on specimen. Continue to take the imitrex and Related to Migraine, unspecified , naproxen, you can use heat or ice to not intractable, without status your forehead as needed. Please migrainosus schedule an appoinment to be seen next week. follow up with your neurologist. We are prescribing you an ointment as Related to Seborrheic dermatitis well as a shampoo. Use the ointment daily and shampoo 3 times per week. Do not scratch those areas. Please keep them dry and clean. Go to ED by ambulance for further Related to Hypotension, unspecified care You have a history of chest pain and Related to Chest pain, unspecified you have seen Dr. Moreno in the type past, however you did not follow up previoulsy. I need you to schedule an appointment with him especially since you recently had to go to the emergency department and you have had a previous heart catherization. I want you to continue going to your Related to Obesity, unspecified appointments at [facility]. Please obesity severity, unspecified request that they send us paperwork obesity type of all of the appointments. augmentin x 10 days, take with Related to Skin infection foodavoid picking at areasantibiotic oint as needed to open areaskeep skin clean and drytylenol/motrin for pain and feverfollow up with your doctor in 5 days Risks and benefits of new medication discussed. Patient verbalized understanding -Thank you for choosing the [facility]. We hope that you will be feeling better soon.Any condition can change and some diseases may worsen despite proper treatment. Other problems may begin with vague or unusual symptoms and only over time will the problem become more clear, making it possible to arrive at the correct diagnosis. Your visit today is not a substitute for, or an effort to provide complete medical care. In most cases, you should let your primary care doctor check you again. Tell your doctor about any new or lasting problems. If you do not have a primary care provider, you have been given a list today of local providers who are accepting new patients. All x-rays are interpreted by a radiologist, usually within 48 hours. If there is any important difference between the radiologist's interpretation and what you were told today by the provider, you will be notified. If you had cultures done today, results will be available in 72 hours, depending on specimen. YOu are having the sensation of bugs Related to Neurotic excoriations crawling under your skin and severe itchiness. Today we would like to try a medication to see if this relieves your symptoms, please follow up with me in 1 week. Thank you for coming in today. Continue ice and naproxen as directed Related to [place]'s by orthopedics. Wear your splint. tenosynovitis, right Steroid injection should start working within the next couple of days. Follow up with orthopedics. Plenty of rest. Increase fluid Related to Viral URI with cough intake. Wash hands frequently to prevent the spread of infection. You may take Tylenol or Ibuprofen for fever or discomfort - use as directed. Mucinex (OTC) for cough and congestion - use as directed. Saline nasal spray and steam inhalation can be helpful to clear congestion as well. Follow up if symptoms persist or worsen. Thank you for choosing the [facility]. We hope that you will be feeling better soon. Any condition can change and some diseases may worsen despite proper treatment. Other problems may begin with vague or unusual symptoms and only over time will the problem become more clear, making it possible to arrive at the correct diagnosis. Your visit today is not a substitute for, or an effort to provide complete medical care. In most cases, you should let your primary care doctor check you again. Tell your doctor about any new or lasting problems. If you do not have a primary care provider, you have been given a list today of local providers who are accepting new patients. All x-rays are interpreted by a radiologist, usually within 48 hours. If there is any important difference between the radiologist's interpretation and what you were told today by the provider, you will be notified. If you had cultures done today, results will be available in 72 hours, depending on specimen. Your had a cortisone (steroid) Related to De Quervain's injection. There are two medicines in tenosynovitis, right this injection, a numbing medicine and a steroid. The numbing medication component usually takes effect within a few minutes and wears off after a few hours, after which your pain may return. The steroid medication typically takes effect in 3-5 days, although some people have benefits sooner, and lasts for a much longer time. Thank you for your viist.Please get Related to Wrist pain, right the xray if right hand and follow up with us. continue the Zpack from ERstart the Related to Croup, spasmodic prednisoneuse the albuterol via the nebulizerdrink plenty of warm fluidsrest. Thank you for choosing the [facility]. We hope that you will be feeling better soon.Any condition can change and some diseases may worsen despite proper treatment. Other problems may begin with vague or unusual symptoms and only over time will the problem become more clear, making it possible to arrive at the correct diagnosis. Your visit today is not a substitute for, or an effort to provide complete medical care. In most cases, you should let your primary care doctor check you again. Tell your doctor about any new or lasting problems. If you do not have a primary care provider, you have been given a list today of local providers who are accepting new patients. All x-rays are interpreted by a radiologist, usually within 48 hours. If there is any important difference between the radiologist's interpretation and what you were told today by the provider, you will be notified. If you had cultures done today, results will be available in 72 hours, depending on specimen.- You have been diagnosed with acute Related to Acute left-sided thoracic low back pain. Many peoples low back back pain pain resolves in a few weeks by following the self care step:STAY ACTIVE. Walking is a great way to ease back pain. Basic stretching and Yoga can be helpful as well. If you stay in bed and are not moving, it can take longer for pain to resolve.USE HEAT. Heat relaxes your muscles. Try a heating pad, electric blanket, warm bath or shower. TAKE OVER THE COUNTER MEDICATIONS to relieve pain ans swelling. Acetaminophen (Tylenol), Ibuprofen (Advil, Motrin), Naproxen (Aleve).CONSIDER Osteopathic Manipulative Medicine (OMT), physical therapy, accupuncture, chiropractic treatments, massage.IMAGING TESTS do not help you feel better faster and have risks like radiation exposure and high costs.IMAGING TESTS are needed if you have unexplained weight loss, fever over 102, loss of control of bladder or bowels, loss of feeling or strength, problems with reflexes, history of cancer, pain for more than 6 weeks.Follow up in 3-[address] Gonzalez for check up. Take flexeril only at night. Do not operate car or heavey machinery. May make your drowsy. DO NOT take vistaril while taking this medication.Continue using naproxen and tylenol for pain. Today we will increase your Related to Moderate episode of Wellbutrin dose to 100mg 3x/day. recurrent major depressive disorder Continue with your Cymbalta 60mg BID. Continue following up with counselling. Thank you for coming back to see me today. We will continue to monitor your symptoms. Please f/u with me in 1 month for re-evaluation or sooner as needed. Today we have also discussed weight loss, we will see if better management of depression leads to some weight loss, if not then we can discuss referral for bariatric surgery. Let us know if there is anything that we can do. You appear to have an exacerbation of Related to Moderate episode of your major depressive disorder over recurrent major depressive disorder the past few weeks Continue your Cymbalta. Today we will start you on wellbutrin as an asjunctive to the Cymbalta. Also continue the Vistaril from the ER as this will help with the anxiety symptoms. Please f/u with counselling as you have already initiated. F/u with me in 2-4 weeks to reassess your symptoms. Risks and benefits of new medication discussed. Patient verbalized understanding We will give a short burst of Related to Tenderness of chest wall prednisone and refer to cardiology You are having extremely bad GERD Related to GERD with esophagitis symptoms, please continue your GI medications as prescribed. We will try to get you in to see GI as soon as possible. Please discontinue your NSAIDs. Use ice for the ankle pain. F/u with me after seeing GI. Thank you. Please avoid NSAIDS Use tylenol prn Related to Sprain of left ankle, for painNo narcotics per your PCP unspecified ligament, subsequent encounter please continue dexilant and Related to Gastro-esophageal reflux zantacAdded sucralfate to your tx disease without esophagitis regimenAvoid taking NSAIDSKeep your appointment with GI F/u with your PCP in a week if your symptoms doesn't improve You have re-injured your left ankle, Related to Sprain of left ankle, today we will give you 5 days of unspecified ligament, subsequent toradol. Please do not take these encounter with ibuprofen. Please f/u with ortho as scheduled. Continue ice, rest, and elevation. Thank you You have a sprain of the left ankle Related to Sprain of other ligament with an avulsion fracture. You are of left ankle, subsequent encounter awaiting your orthopedic appointment. You are still in extreme pain today. Continue to ice and elevate the foot. Continue to use your brace. F/u with ortho as scheduled. Today we have discussed your Related to Severe episode of depression, we will continue your recurrent major depressive disorder, cymbalta 60mg BID. Today we without psychotic features discussed you following up with your counsellor, this is your best resource for the depression. Continue to f/u with me as needed for the depression. Today your BMI is at 53, today we Related to Obesity, unspecified will work on finding you the best obesity severity, unspecified resources we can to help with weight obesity type loss. You have come to ask about weight Related to Weight loss counseling, loss. Today we have discussed encounter for referring you to our boiler reliner, she is located in the [facility] office, please make a referral up front for Deana Alvarado. We have also advised you to visit [facility] the [place] and they can help you with other resources in the community. Today we will order a TSH level, we may refer you for a sleep study afterward. Today we discussed 30 minutes of exercise at least 3-4 days/ wk and a gradual increase to 4-5 days/ wk. We need to set routine goals. F/u with me in 1 month to re-evaluate. Discussed plan of care, risk, Related to Pain in right knee benefits and alternatives discussed with patient and was in agreement today. All questions answered to the best of my ability.Refer to Masha has Voltaren Gel at homeFollow up x 6-8 weeks. Today we will give you a prescription Related to Patellofemoral arthralgia for bilateral knee braces. Here are of both knees some exercises to help strengthen the knee muscles. Today we will also prescribe voltaren topical gel. If the co-pay is too high then try otc topical analgesics. You had an acute injury of your knee. Related to Right knee injury, Continue to f/u with orthopedics and subsequent encounter get your MRI. We will continue to follow. Discussed plan of care, risk, Related to Pain in right knee benefits and alternatives discussed with patient and was in agreement today. All questions answered to the best of my ability.Due to prolonged discription of problem, plan on MRI due r/o ligament disruption due to complaints of instability.Follow up after MRI. Take tramadol 50 mg every six hours Related to Arthritis of knee , right prn pain. Follow up with your PCP in one week. Please take prednisone 40mg for 5 Related to Unspecified asthma with days in addition to zpack. I will (acute) exacerbation prescribe cough medication for you however I am confident that most of your symptoms are related to your Asthma. Return end of this week if your symptoms worsen. Maintain adequate restDrink plenty Related to Bronchitis with of fluids May use Tylenol/Motrin for bronchospasm body aches, fever or pain/discomfortSalt water gurgles and lozenges may reduce throat irritation/drynessWarm moist air from steam in the shower or a vaporizer can help soothe oral and nasal passagescool mist humidifierTry taking OTC antihistamine or decongestantsUse OTC saline nasal spray a few times a dayFollow up if symptoms persist or worsenIf severe shortness of breath or trouble breathing arise, please go to the ER Thank you for choosing the [facility]. We hope and expect that you will be feeling better soon.Any condition can change and some diseases may worsen despite proper treatment. Other problems may begin with vague or unusual symptoms and only over time will the problem become more clear, making it possible to arrive at the correct diagnosis. Your visit today is not a substitute for, or an effort to provide complete medical care. In most cases, you should let your primary care doctor check you again. Tell your doctor about any new or lasting problems. If you do not have a primary care provider, you have been given a list today of local providers who are accepting new patients. All x-rays are interpreted by a radiologist, usually within 48 hours. If there is any important difference between the radiologist's interpretation and what you were told today by the provider, you will be notified. If you had cultures done today, the results will generally be available then clear juices, mucinex, delsym, salt Related to Croup water gargles, watch temp, f/u reg kristopher pcp Preliminary xray results showed- no Related to Right foot pain fracture or dislocation Rest, Elevate the foot, Avoid heavy lifting or straining. Apply Ice alternating with heat, and use otc Tylenol every 4-6 hrs as needed.Followup with your primary physician in 5-7 days for recheck, sooner if new or worsening symptoms occur. Thank you for choosing the [facility]. We hope that you will be feeling better soon.Any condition can change and some diseases may worsen despite proper treatment. Other problems may begin with vague or unusual symptoms and only over time will the problem become more clear, making it possible to arrive at the correct diagnosis. Your visit today is not a substitute for, or an effort to provide complete medical care. In most cases, you should let your primary care doctor check you again. Tell your doctor about any new or lasting problems. If you do not have a primary care provider, you have been given a list today of local providers who are accepting new patients. All x-rays are interpreted by a radiologist, usually within 48 hours. If there is any important difference between the radiologist's interpretation and what you were told today by the provider, you will be notified. If you had cultures done today, the results will be available in 72 hours, depending on the specime continue cam walker for 1 Related to Avulsion fracture of weekice/elevateexercisestylenolrefer ankle, left, closed, initial to therapy 2015f/up 1 month encounter Prescribed Tramadol for painWill send Related to Avulsion fracture of referral to orthopedics groupContinue distal end of fibula wearing air castSomeone from our office will schedule an appointment and contact you. If you do not hear from us within a week, then please call us to inquire about it. Call our office ([facility]) or visit the ER if your symptoms worsens. F/U in 2 weeks or earlier as needed a script wass written for autoPAP and Related to Sleep apnea, obstructive it will be sent to [facility] Patient's INR decreased and overtly Related to Personal history of subtherapeutic today, likely due in pulmonary embolism part to missed dose 4-5 days ago. Potential for moderate d/d-intxn between cephalexin and warfarin (effect to increase INR), not apparent nearly one week after starting antibiotic. Suspect patient requires increase in dose, as she has been therapeutic on higher doses in the past, and would prefer to target INR to >/=2.5. Patient is to begin taking 7.5mg mf, 5mg all other days of the week. Follow-up in [facility] clinic in 2 weeks to reassess. Emphasized consistency in diet in regard to vitamin K. Report med changes to [facility] clinic and s/s of bleeding to urgent care. Patient voiced understanding of the plan. You have sustained a severe sprain to Related to Sprain the ankle. Continue to use the air splint and nakia bandage. As you are on Coumadin and Tylenol has not helped, I have prescribed a short course of Oxycodone for pain control. Continue to ice and elevate the foot. Patient's INR therapeutic, 3 weeks Related to Personal history of after restarting warfarin 5mg daily. pulmonary embolism Patient is to continue current regimen and follow-up in [facility] clinic in 2 weeks to ensure INR remains therapeutic. Potential for d/d-intxn between warfarin and naproxen (effect to increase INR/risk of bleeding). Patient has been off enoxaparin for one week. Unlikely to effect INR at this point (usual effect to increase INR). Stressed importance of follow-up, as patient has history of noncompliance with INR checks. Emphasized consistency in diet in regard to vitamin K. Patient is to follow-up with orthopaedic office in regard to pain management for ankle. She is aware naproxen interacts with warfarin. Report s/s of bleeding to urgent care. Patient voiced understanding of the plan. I have prescribed a short course of Related to Left ankle strain, Celecoxib to be taken as needed for subsequent encounter your ankle pain as Tylenol is providing only minimal pain relief. However, as you are also on Coumadin, there is an increased bleeding risk. If you notice uncontrolled bleeding, please discontinue use of Celecoxib. Continue to rest, ice and elevate the ankle. I would like to see you again for in a follow up in 2 weeks. Fluids. Mucinex 2-3x daily. Afrin Related to URI, acute spray 3x daily x 3-4 days. Post op- Ok to resume all Related to Stress incontinence actitivities. I told her I do want (female) (male) her to finish out her antibiotics. She can return to work tomorrow. I will go ahead and start the patient Related to Family planning on some Keflex just as it looks like there is a little bit of a superficial infection in her umbilicus. Reviewed findings with Dr. Read, Related to Post-op pain as the patient is not complaining of urinary symptoms and denied significant change in pain symptoms after catheterization she does not need to have catheter over the weekend. Dr. Read increased pain med dose to 7.5/325 percocet, discussed with patient staying on top of the pain with regular dosing/preventing breakthrough pain. Pt to follow up with Dr. Read as scheduled 10/02/15. Cool compresses may be applied to Related to Blunt trauma, left eye, help with eyelid swelling, use initial encounter antibiotic ointment as prescribed, do not wear contacts for next several days, wear glasses. Take any medications given to you today as prescribed. Follow up with Ophthamologist (eye doctor) in 2-3 days if symptoms not improving. If pain worsens or vision worsens patient should see ophthamologist or go to the ER for further evaluation/treatment. Thank you for choosing the [facility]. We hope that you will be feeling better soon. Any condition can change and some diseases may worsen despite proper treatment. Other problems may begin with vague or unusual symptoms and only over time will the problem become more clear, making it possible to arrive at the correct diagnosis. Your visit today is not a substitute for, or an effort to provide complete medical care. In most cases, you should let your primary care doctor check you again. Tell your doctor about any new or lasting problems. If you do not have a primary care provider, you have been given a list today of local providers who are accepting new patients. All x-rays are interpreted by a radiologist, usually within 48 hours. If there is any important difference between the radiologists interpretation and what you were told today by the provider, you will be notified. If you had cultures done today, the results will be available in 72 hours, depending on the specimen. 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 Because this was an embolism without acute cor pulmonale unprovoked event, it is recommended that you be on lifelong anticoagulation, however with your surgery on August 15 we will hold your coumadin and discuss anticoagulation afterward. Ok to proceed to surgery.You are a Related to Pre-operative clearance low risk for thromboembolism so we will hold coumadin until after the procedure.F/u with me after to discuss options for life-long anticoagulation. Preadmission testing shows an active Related to Urinary tract infection, urinary tract infection at this point site not specified the susceptibilities are not up. Once she is treated she will need to come in the day before surgery for a catheter dip urine to make sure the infection is gone if it is can proceed if not she'll need to be canceled. The patient's primary care provider Related to Personal history of has taken her off Coumadin already pulmonary embolism knowing that her surgery is not until the . I was a little bit nervous about this. She also wants to travel immediately postop. She can start her Coumadin the day after the surgery but will take at least for 5 days to become effective and being overweight having surgery and traveling with a history of a pulmonary embolism R is a huge risk so I will be treating her with Lovenox for 5 days after the surgery until her Coumadin kickstand which point she needs to follow-up with her PCP. Patient would like to proceed with a Related to Stress incontinence retropubic sling. (female) (male) The patient would like to proceed Related to Family planning with laparoscopic tubal ligation. We discussed risks and limitations.Discussed past medical history, surgical history, family history, allergies, and medications. Discussed risks and benefits of surgery. The patient denies having any problems with anesthesia in the past. Patient is up-to-date on her Pap smear. 1) Continue Using naproxen for pain Related to Bilateral low back pain and inflammation. 2) Will send with sciatica, sciatica laterality physical therapy referral. Our unspecified office will call you with appointment. 3) Follow up with Dr. Gonzalez as needed. 1) Continue to use naproxen for Related to Sacrococcygeal pain inflammtion and pain.2) Use ice 2-3 times a day for pain and inflammation.3) Continue to use cushion when seated.4) Follow up with Dr. Gonzalez as needed or if pain becomes worse. heat/cold to area, no bending, Related to Bilateral low back pain twisting or lifting for next 4-7 with sciatica, sciatica laterality days, pillow under & between legs in unspecified bed, go to ED for any loss of bowel or bladder control, follow up with primary provider if no improvement or worsening pain, ibuprofen or advil with food every 6 hours, finish prednisone Thank you for choosing the [facility]. We hope that you will be feeling better soon. Any condition can change and some diseases may worsen despite proper treatment. Other problems may begin with vague or unusual symptoms and only over time will the problem become more clear, making it possible to arrive at the correct diagnosis. Your visit today is not a substitute for regular care by your primary provider. I went over the etiology of stress Related to Stress incontinence incontinence as well as her (female) (male) urodynamics. She would like to proceed with a retropubic sling. I told the patient she will need to Related to Other pulmonary embolism be off the Coumadin in order for me without acute cor pulmonale to do these 2 procedures. She can be on Lovenox and then restart the Coumadin the day after the surgery. She will need to do this through her primary care that is managing that. She will need a PT PTT the morning of the surgery. The patient would like to proceed Related to Encounter for with a tubal ligation. She sterilization understands that having had appendicitis and pelvic inflammatory disease and her morbid obesity could affect my ability to perform the tubal ligation. cool, rest ,f/u up reg pcp, or on Related to Chronic back pain call md, er as needed ,continue meds from er, Pap smear was elected today with high Related to Abnormal Pap risk HPV requested. This in anticipation of the consult and the need to complete the evaluation. During the examination today, a small Related to Vulvar lesion white lesion was seen on the left lower labia that this will be further assessed at the time of consultation. Urodynamics was completed today. Related to Stress incontinence It's anticipation of consult visit with Dr. Nathan Read which is scheduled. Patient is requesting a sooner appointment and will be on an on-call list. In addition a catheter urine culture and sensitivity will be sent. Along with the urine dip which was done prior to the study which was negative. We discussed possible options and Related to Contraception contraception. Noting that you are tapering from nursing your last child and plan on discontinuing nursing. Your fully aware of the need to avoid all estrogen containing contraceptive methods. You express a desire to discuss permanent sterilization with Dr. Nathan Read in a scheduled follow-up consult visit. We discussed urodynamics as a Related to Stress incontinence necessary procedure for diagnosis and help with surgical correction identifying leak point pressure. A handout was given. This should be scheduled first than a follow-up visit with Dr. Nathan Read for surgical consultation. You wish this to be scheduled today. No Pap smear was done today we did Related to Routine Gynecological request a copy of Pap smear he Exam reported was done recently and another [employer] office. You also reported that you had a clinical breast exam within the last year. U aware of the need to avoid all Related to Personal history of estrogen containing contraception. pulmonary embolism And the need for anticoagulant therapy that has already been prescribed. Our plan will be to increase topamax, Related to Migraine please take 50mg qam and 100mg qhs. Please keep apt with Dr Briscoe on 05/19/15. Refilled prescription for zofran ODT. Please keep apt with PCP as previously made. RTC sooner if needed. Rapid strep positive todayMaintain Related to Strep pharyngitis adequate restDrink plenty of fluidsSucking on throat lozenges, hard candies or frozen fruit-flavored ice pops may help soothe throatWarm salt water garglesTry OTC saline nasal spray a few times a dayIbuprofen/Tylenol for discomfortFollow up if symptoms persist or worsen Thank you for choosing the [facility]. We hope and expect that you will be feeling better soon.Any condition can change and some diseases may worsen despite proper treatment. Other problems may begin with vague or unusual symptoms and only over time will the problem become more clear, making it possible to arrive at the correct diagnosis. Your visit today is not a substitute for, or an effort to provide complete medical care. In most cases, you should let your primary care doctor check you again. Tell your doctor about any new or lasting problems. If you do not have a primary care provider, you have been given a list today of local providers who are accepting new patients. All x-rays are interpreted by a radiologist, usually within 48 hours. If there is any important difference between the radiologist's interpretation and what you were told today by the provider, you will be notified. If you had cultures done today, the results will generally be available then Afrin spray 3x daily x 4 days. Related to URI Iophen-C for cough Rest, increase fluid, take tylenol Related to Gastroenteritis for pain or feverf/u with your pcp in 7 days if not better, sooner if getting worse or having new symptoms. Rest, ice for 20 min 6 x per day for Related to Back pain 2 days, elevation, take ibuprofen for pain and inflamationf/u with your pcp in one week. Thank you for choosing the [facility]. We hope and expect that you will be feeling better soon.Any condition can change and some diseases may worsen despite proper treatment. Other problems may begin with vague or unusual symptoms and only over time will the problem become more clear, making it possible to arrive at the correct diagnosis. Your visit today is not a substitute for, or an effort to provide complete medical care. In most cases, you should let your primary care doctor check you again. Tell your doctor about any new or lasting problems. If you do not have a primary care provider, you have been given a list today of local providers who are accepting new patients. All x-rays are interpreted by a radiologist, usually within 48 hours. If there is any important difference between the radiologist's interpretation and what you were told today by the provider, you will be notified. If you had cultures done today, the results will generally be availab Continue with medication as Related to Lumbar strain prescribed Rest as much as possible.Avoid heavy lifting, pushing, or pulling.Heat or ice to affected area.If pain increases, loss of bowel or bladder control, or numbness/tingling to the lower extremity see medical attention. Please follow up with primary in 3-5 days - Thank you for choosing the [facility]. We hope that you will be feeling better soon.Any condition can change and some diseases may worsen despite proper treatment. Other problems may begin with vague or unusual symptoms and only over time will the problem become more clear, making it possible to arrive at the correct diagnosis. Your visit today is not a substitute for, or an effort to provide complete medical care. In most cases, you should let your primary care doctor check you again. Tell your doctor about any new or lasting problems. If you do not have a primary care provider, you have been given a list today of local providers who are accepting new patients. All x-rays are interpreted by a radiologist, usually within 48 hours. If there is any important difference between the radiologist's interpretation and what you were told today by the provider, you will be notified. If you had cultures done today, the results will be available in 72 hours, depending on the specimen. Humidifier. Continue Robitussin AC. Related to Cough Use albuterol inhaler every 4-6 hours. Plenty of fluids. Take new medications as prescribed. Related to URI, acute Continue albuterol inhaler as needed. Plenty of rest. Increase fluid intake. Wash hands frequently to prevent the spread of infection. You may take Tylenol or Ibuprofen for fever or discomfort. Mucinex (OTC) for daytime cough and congestion - use as directed. Saline nasal spray and steam inhalation can be helpful to clear congestion as well. Follow up if symptoms persist or worsen. Get lots of rest. Maintain good Related to Cough clear fluid intake to stay well hydrated. Frequent handwashing to prevent spread of germs. Please avoid exposure to tobacco smoke and/or polluted air. You can use Otc cough and cold medications such as Afrin nasal spray and robitussin to help with symptoms. Take Tylenol (acetaminophen), Advil(ibuprofen), or alleve(naproxen) as needed for fever or aches, dosage according to package directions. Please follow-up with your primary care provider within 1 week for recheck.You can return to work or school when fever free for 24 hours without the use of fever reducing medication.- Thank you for choosing the [facility]. We hope that you will be feeling better soon.Any condition can change and some diseases may worsen despite proper treatment. Other problems may begin with vague or unusual symptoms and only over time will the problem become more clear, making it possible to arrive at the correct diagnosis. Your visit today is not a substitute for, or an effort to provide complete medical care. In most cases, you should let your primary care doctor check you again. Tell your doctor about any new or lasting problems. If you do not have a primary care provider, you have been given a list today of local providers who are accepting new patients. All x-rays are interpreted by a radiologist, usually within 48 hours. If there is any important difference between the radiologist's interpretation and what you were told today by the provider, you will be notified. If you had cultures done today, the results will be available in 72 hours, depending on the specimen.- Continue prednisone. Follow-up with Related to Sciatica Dr. Calderon this week as planned. You have been diagnosed with a Related to Acute conjunctivitis superficial infection of the thin covering which covers the eye(s) called the conjunctiva. This condition can be caused by many things such as allergies, viruses and bacterial. Symptoms of conjunctivitis include redness, irritation, tearing/discharge and sometimes swelling of the eyelids. It is important you finish any prescription prescribed to you today completely. Warm moist compresses can help to unstick eyes in the morning if the discharge is very thick. Do not wear contacts till infection clears, throw away any contaminated contacts. If the redness/swelling worsens, if loss of vision, if any fevers or worsening pain you need to seek follow up medical care or go to the ER for further evaluation. Thank you for choosing the [facility]. We hope that you will be feeling better soon. Any condition can change and some diseases may worsen despite proper treatment. Other problems may begin with vague or unusual symptoms and only over time will the problem become more clear, making it possible to arrive at the correct diagnosis. Your visit today is not a substitute for, or an effort to provide complete medical care. In most cases, you should let your primary care doctor check you again. Tell your doctor about any new or lasting problems. If you do not have a primary care provider, you have been given a list today of local providers who are accepting new patients. All x-rays are interpreted by a radiologist, usually within 48 hours. If there is any important difference between the radiologists interpretation and what you were told today by the provider, you will be notified. If you had cultures done today, the results will be available in 72 hours, depending on the specimen. Patient's INR slightly Related to Pulmonary embolism supratherapeutic today. Was the same at last visit prior to partial reveral for multiple tooth extraction. Patient is to begin taking 7.5mg MF, 5mg all other days. Follow-up in AC clinic in 2 weeks when patient will be at steady state on current regimen. Emphasized consistency in diet in regard to vitamin K. Report med changes to AC clinic and s/s of bleeding to urgent care. Patient voiced understanding of the plan. Nix creme rinse two consecutive days Related to Pediculosis and in one week Patient's INR decreased and slightly Related to Pulmonary embolism subtherapeutic today. Patient is to take 7.5mg today, then continue 5mg daily. Follow-up in AC clinic on Mon (04/18)-4 days for further dose adjustment. Suspect patient may require 7.5mg at least once or twice weekly to maintain therapeutic INR. Emphasized consistency in diet in regard to vitamin K. Report med changes to AC clinic and s/s of bleeding to urgent care. Patient voiced understanding of the plan.
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
--- OUTSIDE RECORDS SUMMARY | 2019-11-01 19:48 | XMS REPORT | Continuity of Care Document ---
:1980 Author Organization 0001 - [employer] Address [address] [place] [address] Phone Care Team Providers Name Role Phone [...] Waiver Number mg-naloxone 0.5 mg sublingual route [id number] (D. sublingual tablet every day nicci Ríos) or to dissolve [id number] slowly in mouth (Steve), without chewing [id number] or swallowing (Maggi), [id number] (Letty), [id number] (Kyle Ríos) MDD 6 mg Wellbutrin XL [...] Number mg-naloxone 1 mg sublingual route Active [id number] (D. sublingual film every day allow Young) or to dissolve [id number] slowly in mouth (Steve), without chewing [id number] or swallowing (Maggi), [id number] (Letty), [id number] (Kyle Ríos) MDD 6mg buprenorphine [address] place 1 film by 1 film - No Longer Waiver Number mg-naloxone 0.5 mg sublingual route Active [id number] (D. 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 Personal history of [...] apnea Encounter for therapeutic drug level monitoring 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 [employer], [facility] region somatic 507 [facility] 33-[address], [facility], [address]. [place] left sideAcute tel:[phone] [place], [place], midline low 6901 [address], [place] back pain with tel:[phone] left-sided [phone] sciatica 0001 - [facility] Walk-In Sciatica of ADALBERTO CARABALLO. [place], [place] left side [address] 33[address]57 [place] 0 [place], [place], Street, [address]. [place] tel:+[phone] [place], [place], 2[address], [place] tel:[phone] 0001 - S Primary Encounter for Huy-0 DOSHI HARVEY. [facility], Care [place] monitoring 8 [address] , [address] [place] [address] Suboxone 0 [facility], [address]. [address], therapyMigrain tel:[phone] [place] e without aura [address] [place] [address], and without [address], [place] status tel:+60 migrainosus, [phone] not intractable 0001 - S Primary Huy-0 DOSHI HARVEY. [facility], Care [place] 6- [address] , [address] [place] [address] 0 [facility], [address]. Street, tel:[phone] [address], [address], [place] tel:+ [phone] 0001 - S Primary Encounter for Dec-0 DSOHI HARVEY. [facility], Care Figureoa monitoring 4- [address] , [address] [place] [address] Suboxone 9 [facility], [address]. [address], therapyOther tel:[phone] [place] buccaro [address] [place] [address], (current) drug [address], [place] therapyGeneral tel:+60 ized anxiety [phone] disorder 0001 - S Primary Nov-2 DOSHI HARVEY. [facility], Care Robel 0-201 [address] , [address] [place] [address] 9 [facility], [address]. Street, tel:[phone] [place] [address] [place] [address], [address], [place] tel:[phone] 0001 - S Primary Encounter for Oct-3 DOSHI HARVEY. [facility] Inc, Care [place] monitoring 1-201 [address] , [address] [place] [address] Suboxone 9 [facility], [address], therapyOpioid tel:[phone] [place] dependence, [address] [place] [address], uncomplicated [address], [place] tel:[phone] 0001 - S Primary Oct-2 DOSHI HARVEY. [facility], Care [place] 9-[address], [address] [place] [address] 9 [facility], [address]. [address], tel:[phone] [place] [address] [place] [address], [address], [place] tel: [phone] 0001 - [facility] Primary Migraine Oct-2 DOSHI HARVEY. [facility], Edis Marti without aura 4-201 [address] , [address] [place] [address] and without 9 [facility], [address]. [address], migrainosus, tel:[phone] [place] not [address] [place] [address], intractable [address], [place] tel: [phone] 0001 - S Primary Encounter for Oct-0 DOSHI HARVEY. [facility] Inc, [facility] [place] monitoring 3-201 [address] , [address] [place] [address] Suboxone 9 [facility], [address]. [place], therapyOpioid tel:[phone] [place] dependence, [address] [place] [address], uncomplicatedE [address], [place] ncounter for tel: screening for [phone] other disorder 0001 - [facility] Primary Encounter for Aug-2 DOSHI HARVEY. [facility], [employer] [place] monitoring 7-201 507 [facility], [address] [place] [address] Suboxone 9 [facility], [address]. [place], therapyOpioid tel:[phone] [place] dependence, [address] [place] [address], uncomplicated [address], [place] tel: [phone] 0001 - [facility] Primary Encounter for Mar-3 DOSHI HARVEY. [facility], [employer] [place] monitoring 1-201 507 [facility], [address] [place] [address] Suboxone 9 [facility], [address]. [place], therapyOpioid tel:[phone] [place] dependence, [address] [place] [address], uncomplicated [address], [place] tel: [phone] 0001 - S Primary History of Yosef-1 DOSHI HARVEY. [facility] Inc, Edis Marti migraineOpioid 6-201 [address] , [address] [place] [address] dependence in 9 [facility], [address]. [place], hyroidism, tel:[phone] [place] unspecified [address] [place] [address], typePE [address], [place] (pulmonary tel:60 thromboembolis [phone] m)Opioid dependence, uncomplicated 0001 - [facility] Primary Migraine with Mar-0 MILLET MACIE. [facility], Care [place] aura and with [address] status 9 [place], Berto migrainosus, `, Mark, [place], [address]. [place] intractable tel:[phone] [place], [place], [address], [place] tel:[phone] 0001 - [facility] Primary Migraine with January-0 ANDREZ STEPHANIE. [facility] Inc, Care [place] aura and with [address] , [address] [place] [address] status 9 SP, [place] migrainosus, [place], [place], [place], [address]. [place] intractable tel:[phone] [facility], [place], 6075 [address], [place] tel:[phone] 0001 - [facility] Primary Encounter for Dec- ANDREZ STEPHANIE. [facility], Care [place] wellness [address] examinationMig 9 SP, [place]erto luisana with [facility], [place], [address]. [place] status tel:[phone] [place], [place], migrainosus, 6075 [address], [place] not tel:[phone] intractable [phone] 0001 - [facility] Primary Intractable Nov- ANDREZ STEPHANIE. [facility] Inc, Care [place] migraine with - [address] aura with 9 [facility], Berto status [place], [place], [place], [address]. [place] erately severe tel:[phone] [place], [place], depression 6075 [address], [place] tel:[phone] 0001 - [facility] Primary Migraine with Sep-2 ANDREZ STEPHANIE. [facility] Inc, Care [place] aura and with [address] status 9 SP, [place] migrainosus, [place], [place], [address]. [place] intractable tel:[phone] [place], 60[address], [place] tel:[phone] 0001 - [facility] Primary Chest pain, Dec-0 ANDREZ STEPHANIE. [facility] Inc, Care [place] unspecified 3-[address], [address] [place] [address] typeIntractabl 8 [facility], Berto e migraine [place], [place], [address]. [place] status tel:[phone] [place], [place], migrainosus 6075 [address], [place] tel:[phone] 0001 - [facility] Primary Intractable Nov-2 ANDREZ STEPHANIE. [facility], Edis Marti migraine with [address] aura without 8 SP, B[place] status [place], [place], [address]. [place] bid tel:[phone] [place], [place], obesityBody 6075 [address], [place] mass index tel:+60 (BMI) 50-59.9 [phone] , adult 0001 - S Primary Abdominal wall Nov-1 ANDREZ STEPHANIE. [facility], Edis Marti pain in [address] periumbilical 8 [facility], [place] regionMigraine [place], [place], [address]. [place] with status tel:[phone] [place], migrainosus, 6075 [address], [place] not tel:+60 intractable [phone] 0001 - [facility] Primary Neuropathic Oct-1 ANDREZ STEPHANIE. [facility], Edis Marti painIntractabl [address] e migraine 8 [facility] [place] with aura with [place], [address]. [place] migrainosus tel:[phone] [place], [place], 6075 [address], [place] tel:[phone] 0001 - [facility] Primary Intractable Oct-0 ANDREZ STEPHANIE. [facility], Edis Marti migraine with [address] aura with 8 [facility], Berto status [place], [place], [address]. [place] tel:[phone] [place], [place], 6075 [address], [place] tel:[phone] 0001 - [facility] Walk-In Acute right Sep-1 [facility] otitis 8-201 CHRISTOPHER. 33-57 [place] mediaAcute 8 91 [place] [facility], [facility] [address], Street, unspecified [place], [address]. [facility], [place], al history of tel:[phone], [place] nicotine 4151 tel: dependence [phone] 0001 - S Primary Intractable ANDREZKAREN BROWN. [facility], Edis Marti migraine with 7-[address] aura without 8 [facility], Berto status [facility], [place], [address]. [place] bid tel:63 [place], [place], obesityNeuropa 6075 [address], [place] thyWhiplash tel: injury to [phone] neck, subsequent encounterBMI pediatric, 85% to less than 95th percentile for ageSprain of ligaments of cervical spine, initial encounterPerso n injured in unsp motor-vehicle accident, traffic, initBody mass index (BMI) 50-59.9 , adult 0001 - S Primary Migraine aura, 0 [facility]. [facility], Edis Marti persistent, 9-201 [address] intractable 8 [facility], [place], [place], [address]. [place] tel:+63 [place], 60[address], [place] tel: [phone] 0001 - S Primary Intractable ANDREZKAREN BROWN. [facility], Edis Marti migraine with 4-[address] aura without 8 [facility], [place]erto status [facility], [place], [address]. [place] erate episode tel:[phone] [place], [place], of recurrent 6075 [address], [place] major tel: depressive [phone] disorderNeurop athyMorbid obesityBody mass index (BMI) 50-59.9 , adult 0001 - S Primary Intractable ANDREZKAREN RAINEYAH. [facility] Inc, Edis Marti migraine with 8-201 [address] aura without 8 [facility], Berto status [facility], [place], [address]. [place] acco tel:[phone] [place], dependenceBipo 6075 [address], [place] lar 2 disorder tel: [phone] 0001 - S Primary Major Shayne-2 BARBOUR [facility] Inc, Care depressive 6-201 RANDI. 4417 -57 [place] disorder, 8 Mark Berto recurrent, [facility], Street, moderateMorbid Mark, PRFigueroa (severe) [address]. [place], obesity due to tel:[phone], [place] excess 7365 tel:60 calories [phone] 0001 - [facility] Primary Migraine, ROOT COCO. [facility], Care [place] unspecified, 1-201 [address] , [address] [place] [address] not 8 [place], [address]. Street, without status tel:[phone] [place] migrainosus [address] [place] [address], [address], [place] tel: [phone] 0001 - [facility] Primary Migraine, ROOT COCO. [facility], Care [place] unspecified, 4-201 507 [facility], [address] [place] [address] not 8 [place], [address]. Street, without status tel:[phone] [place] migrainosus 6075 [place], [address], [place] tel: [phone] 0001 - [facility] Primary Intractable Dec-2 ROOT COCO. [facility], Edis Marti migraine with 5-[address] aura with 8 [place], [place], [address]. Street, migrainosusAne tel:[phone] [place] mary jo, 6075 [place], [place], unspecified [address], [place] typeHypothyroi tel: dism, [phone] unspecified typeElevated glucose level 0001 - [facility] Primary Chronic Apr-0 ANDREZ BROWN. [facility] Inc, Care [place] midline low 4-201 [address] back pain with 8 SP, [place] left-sided [place], [place], [place], [address]. [place] chronic tel:[phone] [place], painClass 3 6075 [address], [place] obesity tel:60 without [phone] serious comorbidity with body mass index (BMI) of 50.0 to 59.9 in adult, unspecified obesity typeBody mass index (bmi) 50-59.9 , adult 0001 - [facility] Pain Body mass Mar-2 SALEEM [facility], Management index (BMI) 1-201 LUDY. 52 33-57 50-59.9 , [address], [address], spondylosisSpo 2, [place] Marti ndylolysis, [place], [place] [address]. [address], [place] unspecifiedDor tel:[phone] tel:+60 salgia, [phone] unspecifiedObe sity, unspecified 0001 - [facility] Primary Hospital Nov- ANDREZ BROWN. [facility], Edis Marti discharge 4-201 507 [facility], [address] follow-upMigra 8 SP, B[place] ine without [facility], [address]. [place] without status tel:[phone] [place], [place], migrainosus, 6075 [address], [place] not tel:+60 intractableUns [phone] pecified asthma, uncomplicatedP neumonia, unspecified organismPerson al history of nicotine dependence 0001 - [facility] Walk-In Acute OFELIA PRASAD. [facility], Center pharyngitis, 9 [facility] 91 33-57 [place] unspecified 8 [place] [address], Street, [facility], [address]. [place], [place], tel:[phone], [place] 4151 tel:+[phone] 0001 - [facility] Primary Intractable ANDREZ BROWN. [facility], Edis Marti migraine with 1- [address] aura without 8 SP, [place] status [facility], [place], [address]. [place] pital tel:[phone] [place], [place], discharge 6075 [address], [place] follow-up tel:[phone] 0001 - [facility] Primary Acute ROOT COCO. [facility], Edis Marti left-sided low 8-201 [address] back pain 7 [place], [address]. Street, sciatica tel:[phone] [place] 6075 [place], [address], [place] tel:[phone] 0001 - S Walk-In Viral upper Dec-0 BERG CRISTOFER. S Inc, Center respiratory 7201 [address] 33-57 [place] [address], [place] infectionOther [place], [place], Street, viral agents [address], [place]. [place] as the cause tel:[phone] [place], [place], of diseases 9816 [address], [place] classified tel:+60 elsewherePerso [phone] nal history of nicotine dependence 0001 - [facility] Pain Bilateral low Nov-2 MUKESH S Inc, Management back pain with BELLA. 52 33-57 sciatica, 7 [place] sciatica [place], Street, [facility] [place], [address]. [place], [place], anticoagulant tel:[phone], [place] therapyBody 5898 tel:+60 mass index [phone] (BMI) 45.0-49.9, adult 0001 - S Walk-In DysuriaUrinary Nov-1 PLATTESTEIN S Inc, Center tract 9201 CHRISTOPHER. 33-57 [place] infection, 7 91 [facility] Bridge site not [address], Street, specified BostonReplaced by [facility], [address]. [place], [place], tel:[phone], [place] 4151 tel:[phone] 0001 - [facility] Ortho Acute pain of Nov-0 LOWRIE CASEY. [employer] Inc, Ctr Ortho left [facility] 4433 33-[address] [place] oral pain E, [place], [place], [facility] [place], [address]. [place] left knee tel:[phone] [place], [place], 2220 [address], [place] tel:[phone] 0001 - S Ortho Pain in Nov-0 LOWRIE CASEY. S Inc, Ctr Ortho unspecified S 4433 33-[address] [place] E, Mark, [place], [address]. [place] tel:[phone] [place], [place], 2220 [address], [place] tel:[phone] 0001 - [facility] WS Preop Nov-0 SHUKRI S Inc, Cardiology cardiovascular MYRIAM. 30 33-57 examPSVT 7 Berto Thomson (paroxysmal Street, [address], supraventricul 250, [place] ar [facility], [place], [facility], [place], tachycardia) [address]. [address], [place] tel:[phone] tel:+ [phone] 0001 - [facility] Primary Major Oct-3 ROOT COCO. S Inc, Care [place] depressive 1 [address] , 33-57 City disorder, 7 [place], [facility], [address]. [address], [facility], [place], tel:[phone] [place] unspecifiedCos 6075 [place], [place], tochondritis [address], [place] tel:+ [phone] 0001 - [facility] Mark Medication Jun- [employer] [email or web address] Memorial Medical Center, IM Primary managementChro 6- YA MANUJA. Care julianne left-sided 4417 [facility] low back pain [facility], with Internal [place] left-sided Medicine, [place], [place], [place], [address], [place] chronic [address]. tel:+ painAcute pain tel:[phone] of left knee 7365 0001 - [facility] Mark Chronic Sep-2 [employer] Inc.STEPANP21MARTIN S [facility], IM Primary GERDBenign YA MANUJA. Care atrial 7 [address] Berto arrhythmiaOthe [facility], [place], r pulmonary Internal [place] embolism Medicine, [place], [place], [place], [address], [place] cor pulmonale, [address]. tel: unspecified tel:[phone] chronicityHypo 7365 thyroidism (acquired)Pers onal history of nicotine dependence 0001 - [facility] Walk-In Acute Sep-1 BUFFUM S Inc, Center suprapubic 0-201 ISIS. 7 [place] painExcessive 7 Mark [place] vaginal [facility], [place], bleeding [place], [place], [place] [address]. [place], tel:[phone], [place] 2144 tel:[phone] 0001 - [facility] Primary Seborrheic Aug-2 ROOT COCO. S Inc, Care [place] dermatitisMigr [address] [facility] 3357 [facility] facundo, 7 [facility] [place], [address]. Street, not tel:[phone] [place] intractable, [address] [place] [address], without status [address], [place] migrainosusObe tel:+60 sity, [phone] unspecified obesity severity, unspecified obesity typeBody mass index (BMI) 45.0-49.9, adult 0001 - [facility] Walk-In Hypotension, INDIO CAMPBELL. [facility], Center unspecified [facility]7 [place] 33-[address], Street, [address]. [place] tel:[phone] [place], [place], 2[address], [place] tel:[phone] 0001 - [facility] Primary Obesity, ROOT COCO. [facility], Care [place] unspecified [address] obesity 7 [facility] [place], [address]. Street, unspecified tel:[phone] [place] obesity [address] [place] [address], typeChest [address], [place] pain, tel:+60 unspecified [phone] typeMigraine, unspecified, not intractable, without status migrainosus 0001 - [facility] Walk-In Skin infection Nov- CLEM HORN. [facility], Center [facility]7 [place] 33-[address] [address] [place] [address], Street, [address]. [place] tel:[phone] [place], [place], 2[address], [place] tel:[phone] 0001 - [facility] Primary Neurotic Mar-0 KAREN [facility], Care [place] excoriationsPo LUDY. [facility] [address] lyarthralgia 7 [facility], Street, [facility], [address]. [place], tel:[phone], [place] 6075 tel:[phone] 0001 - [facility] Walk-In De Quervain's DC S [facility], Center tenosynovitis, NAYELI. 91 -57 [place] rightViral URI 7 [place] [address] cough [address], Street, [facility], [place], [place], [address]. [address], [place] tel:[phone] tel:[phone] 0001 - S Ortho De Quervain's CATARINA S Inc, Ctr Ortho tenosynovitis, 0-201 IRENA. [facility] 57 right 7 [address] [facility] [address], Street, [place], [place], [place] [address]. [place], [place], tel:[phone], [place] 2220 tel:[phone] 0001 - [facility] Primary Wrist pain, JORGE S Inc, Care [place] right 7-201 UPASANA. 4417 -57 [facility] 7 [facility], [place], [place], [place] [address]. [place], [place], tel:[phone], [place] 7365 tel:[phone] 0001 - S Walk-In Croup, KONEFAL S Inc, Center spasmodicAcute 3-201 KACZYNSKI 57 [place] pharyngitis, 6 EDU. [address] [place] unspecifiedTob Main , [place], acco use [place], [place] [address]. [place], [place], tel:[phone], [place] 7171 tel:[phone] 0001 - S Primary Acute pain of DEMAINE MARY. S Inc, Care [place] left 4-201 507 [facility], -57 [facility] shoulderAcute 6 SP, [place] left-sided [place], [place], [place], [address]. [place] painArm tel:[phone] [place], [place], paresthesia, 6075 [address], [place] leftLow back tel:+[phone] painCervicalgi [phone] a 0001 - S Primary Moderate Jun- KAREN S Inc, Care [place] episode of 3-201 LUDY. 507 33-57 City [address], Berto major [facility], Street, depressive [place], [place], [address]. [place], [place], tel:[phone], [place] 6075 tel:[phone] 0001 - S Primary Moderate Sep-2 KAREN [employer] Inc, Care [place] episode of LUDY. 507 33-57 City recurrent [address] , [place] major [facility]PC, Street, depressive [facility], [address]. [place], [place], tel:[phone], [place] 6075 tel:[phone] 0001 - S Primary Tenderness of Sep-1 SHEIKH CHADWICK. [facility] Inc, Care [place] chest wall 507 [facility], 33-57 City 6 SPC, B[place], [place], [address]. [place] tel:[phone] [place], [place], 6075 [address], [place] tel:[phone] 0001 - S Primary GERD with Apr-0 KAREN [employer] Inc, Care [place] esophagitis LUDY. [address] [place] [address] 6 [facility], [facility], Street, [facility], [address]. [place], tel:[phone], [place] 6075 tel:[phone] 0001 - S Primary Gastro-esophag Apr-0 EKHLAS [employer] Inc, Care [place] eal reflux HOSSAIN. 7 -[address] [place] [address] disease 6 [facility], [place] without SP, Street, es[facility]itisSpr [facility] [place], [address]. [place], ankle, tel:[phone], [place] unspecified 6075 tel:+160 ligament, [phone] subsequent encounter 0001 - [facility] Primary Sprain of left Aug-0 KAREN [employer] Inc, Care [place] ankle, LUDY. [address] [place] [address] unspecified 6 [facility], [place] ligament, SP, Street, subsequent [facility] [place], [address]. [place], [place], ity, walking, tel:[phone], [place] marching and 6075 tel:[phone] [phone] 0001 - S Primary Weight loss Yosef-0 KAREN [employer], Care [place] counseling, LUDY. 507 33-57 [facility] encounter 6 [facility], Berto forObesity, [facility], Street, [place], [address]. [place], severity, tel:[phone], [place] unspecified 6075 tel:[phone] typeSevere episode of recurrent major depressive disorder, without psychotic featuresSprain of other ligament of left ankle, subsequent encounterSprai n of other ligament of left ankle, initial encounterBody mass index (BMI) 50-59.9 , adult 0001 - S Pain in right Shayne-2 S Inc, Orthopedics kneePerson 3357 [place] consulting for 6 [place] explanation of Street, [place], [address], [place] tel:+ [phone] 0001 - S Primary Right knee Shayne- KAREN S Inc, Care [place] injury, LUDY. 507 [facility] subsequent 6 [facility] encounterPatel [facility], Street, lofemoral [facility] [place], [address]. [facility], [place], both tel:[phone], [place] kneesUnspecifi 6075 tel:+60 ed injury of [id number] right lower leg, initial encounterPatel lofemoral disorders, left knee 0001 - S Pain in right Shayne- S Inc, Orthopedics knee 0[address] [place] [address] [place] [address], [place], [address], [place] tel: [phone] 0001 - S Primary Arthritis of Shayne-0 EKHLAS S Inc, Care [place] knee, right HOSSAIN. 507 57 [facility] 6 [facility], Berto [facility], Street, [place], [facility], [address]. [place], tel:[phone], [place] 6075 tel:+ [phone] 0001 - S [place] Encounter for JERAULD [employer], City therapeutic - WESTLEY. 4417 3357 Coumadin drug level 6 [facility], term (current) [facility] [place] [address]. [place], anticoagulants tel:[phone], [place] Personal 8833 tel:+[phone] history of [id number] other venous thrombosis and embolismEncoun ter for therapeutic drug monitoringLong -term Use of Anticoagulants Pulmonary Embolus 0001 - [facility] Primary Unspecified Apr-1 VAZQUEZ GLENN. [facility], [facility] asthma with 8201 3101 Shippers 33-57 City (acute) 6 Road, Suite [place] exacerbationTo 203, [place], [place], [place], [address]. [place] tel:[phone] [place], 48[address], [place] tel:[phone] 0001 - S Walk-In Bronchitis Apr-0 SIRISHA HO. 4417 [facility], Center with 7 Mark 33-57 Mark bronchospasmTo 6 [facility] bacco use [place], [place], Street, [address]. [place] tel:[phone] [place], 2[address], [place] tel:[phone] 0001 - S Walk-In CroupTobacco Apr-0 WALKER [facility], Center use 4-201 LYNNETTE. 1302 33-57 [place] [address] , [place], Street, [address]. [place] tel:[phone] [place], [place], 2[address], [place] tel:[phone] 0001 - S Walk-In Right foot Mar-2 CRISTY WHITNEY. [facility], Center painActivity, 4433 Mark 33-57 [place] other 6 [facility] specified Rheumatology, Street, [place], [place], [place] [address]. [place], tel:[phone], [place] 2879 tel:[phone] 0001 - [facility] Avulsion Mar-2 WARCHOCKI [facility], Orthopedics fracture of 201 CASEY. [facility] 33-57 [place] ankle, left, 33 [place] closed, Pkwy [address], Street, initial [place], [place], [place] encounterOth [address]. [place], fracture of tel:[phone], [place] upper and 2220 tel:+[phone] lower end of [id number] left fibula, init 0001 [facility] Pain in Nov- WARCHOCKI [facility] Inc, Orthopedics unspecified CASEY. [facility] 33-57 [place] ankle and 6 4433 Mark [place] joints of [address]kw[address], Street, unspecified [place], [place], [place] foot [address]. [place], tel:[phone], [place] 2220 tel:[phone] [place] [address] Primary Avulsion Nov- HOSSAIN [facility] Inc, [facility] fracture of JR. [facility] 3357 [facility] distal end of 6 -57 [place]erto fibula [facility], EW3, [place], [place], [place], [address]. [address], [place] tel:[phone] tel:[phone] [place] [address] Sleep Sleep apnea, Nov- BHARATHI [facility], Center obstructiveAnx GERMAN. 93 3357 iety disorder, 6 [facility] unspecifiedBod [address], [facility], Street, y mass index [place] ([place], [address]. [place], [place], 45.0-49.9, tel:[phone], US adultOther 2048 tel:+1-60 dorsalgiaGastr [id number] o-esophageal reflux disease without esophagitisSno ring 0001 [facility] Primary Intractable Nov-0 KAREN [facility] Inc, Care [place] migraine, LUDY. 507 [facility] unspecified [address] [place] [address], [place] migraine [facility], Street, [place]Obstructiv [place], [address]. [place], tel:[phone], [place] 6075 tel:[phone] [place] [address] [place] Encounter for [facility] Inc, [facility] therapeutic 57 Coumadin drug level 6 [place] [facility] [address], term use of [place] anticoagulantP [place], ersonal [address], [place] history of tel:[phone] for therapeutic drug monitoringLong -term Use of Anticoagulants Pulmonary Embolus [address] [place] [address] Primary ImpetigoSprain CASEY [facility] Inc, Care [place] of other 7 CHRISTOPHER. 33-57 City ligament of [address], [place] left ankle, Communicable Street, sequelaPulmona Diseases, [place] ry [place], [place], [place], [place], [address]. [address], [place] term use of tel:[phone] tel:+ anticoagulant [phone] 0001 - S Sprain of left Oct- LOWRIE CASEY. [facility], Orthopedics ankle, 0-201 [facility] 4433 33-57 [place] unspecified [address] [place] ligament, E, [place], Street, [facility], [address]. [place] encounter tel:[phone] [place], 2220 [address], [place] tel:+ [phone] 0001 - [facility] Primary Sprain Oct-0 NI ANIRUDH. [facility], Care [place] 4417 [place] [address], Street, [address]. [place] tel:[phone] [place], [address], [place] tel:+ [phone] 0001 - [facility] [place] Encounter for Oct-0 [facility], [facility] therapeutic 57 Coumadin drug level 6 [facility], term (current) [place] use of [place], [place], anticoagulants [address], [place] Personal tel:+60 history of [id number] pulmonary embolismEncoun ter for therapeutic drug monitoringLong -term Use of Anticoagulants Pulmonary Embolus 0001 - [facility] Primary Left ankle NI ANIRUDH. [facility] Inc, Care [place] strain, 4417 Mark 33-57 City subsequent 6 [facility], [place] encounterStrai [place], [place], Street, n of [facility] [address]. [place] msl/tnd at tel:[phone] [place], [place], ank/ft level, 7365 [address], [place] left foot, tel:[phone] 0001 - S Walk-In URI, OFELIA PRASAD. [facility], Center acuteTobacco 2- [facility] 91 33-57 [place] use 6 [place] [address], Street, [facility], [address]. [place], tel:[phone], [place] 4151 tel:[phone] 0001 - [facility] Mark Stress Sep- SHUMEYKO [facility], Gynecology incontinence 8-201 NATHAN. 4417 33-57 (female) 6 Mark [place] (male)Encounte [facility], r for other [place], [place], [place] specified [address]. [place], surgical tel:[phone], [place] aftercare 4496 tel:[phone] 0001 - [facility] Mark Family Sep- SHUMEYKO [facility], Gynecology planningStress 1-201 NATHAN. 4417 33-57 incontinence 6 Mrak Thomson (female) [facility], (male)Other [place], [place], [place] acute [address]. [place], postprocedural tel:[phone], [place] painBody mass 4496 tel:+160 index (BMI) [id number] 50-59.9 , adult 0001 - [facility] Mark Post-op Sep-0 BORDENET [facility], Gynecology painBody mass 8-201 LOREN. 52 33-57 index (BMI) 6 [place] 45.0-49.9, [place], adult [facility], [address]. [place], tel:[phone], [place] 5895 tel:[phone] 0001 - [facility] Primary Saddle embolus Sep-0 KAREN [facility], Care [place] of pulmonary 6 LUDY. 507 33-57 [facility] artery w/o 6 Main , [place] acute cor SP, Street, pulmonale [facility], [address]. [place], tel:[phone], [place] 6075 tel:[phone] 0001 - [facility] Mark Pyuria Dec-3 NAYAN [facility], Gynecology 1-201 KAUSHAL. 4417 33-57 5 Mark Berto [facility], [place], [place], [place] [address]. [place], tel:[phone], [place] 4496 tel:[phone] 0001 - [facility] Mark Urinary tract Dec-3 SHUMEYKO [facility], Gynecology infection, NATHAN. 4417 3357 site not 5 Mark [place] specified [facility], [place], [place], [place] [address]. [place], tel:[phone], [place] 4496 tel:[phone] 0001 - [facility] Mark Pre-procedure Dec-2 SHUMEYKO [facility] Inc, Gynecology lab exam NATHAN. 4417 33-57 5 Mark Berto [facility], [place], [place], [place] [address]. [place], tel:[phone], [place] 4496 tel:[phone] 0001 - [facility] Walk-In Blunt trauma, Nov- PLATTESTEIN [employer], Center left eye, CHRISTOPHER. [place] initial 5 91 [facility], ing against [place], [address]. [place], other objects, tel:[phone], [place] init encntr 4151 tel:[phone] 0001 - [facility] Mark Urinary tract Nov-2 SHUMEYKO [facility] Inc, Gynecology infection, NATHAN. [facility]7 3357 site not 5 Mark [place] specified [facility], [place], [place], [place] [address]. [place], tel:[phone], [place] 4496 tel:[phone] 0001 - [facility] Mark Family Nov-1 SHUMEYKO [facility] Inc, Gynecology planningStress 2 NATHAN. 0497 33-57 incontinence 5 Markanalilia Thomson (female) [facility], (male)[place] [address]. [place], pulmonary tel:[phone], [place] embolismUrinar 4496 tel:+1-60 y tract [id number] infection, site not specifiedEncou nter for other preprocedural examination 0001 - [facility] Primary Pre-operative Nov- KAREN [facility] Inc, Care [place] clearanceAcute 2-201 LUDY. 507 33-57 City saddle [address], [place] pulmonary SPC, Street, embolism [place], [address]. [facility], [place], cor tel:[phone], [place] pulmonaleEncou 6075 tel:+1-60 nter for [id number] immunizationEn counter for sterilizationS tress incontinence (female) (male)Other pulmonary embolism without acute cor pulmonale 0001 - S Primary Bilateral low Nov-0 DEMAINE MARY. S Inc, Care [place] back pain with 2-[address], 33-57 City sciatica, 5 SP, [place] sciatica [place], [place], [place], [address]. [place] unspecifiedSac tel:[phone] [place], rococcygeal 6075 [address], [place] pain tel:[phone] 0001 - S Walk-In Bilateral low Oct-2 INDIO CAMPBELL. S Inc, Center back pain with 4417 Mark 33-57 [place] sciatica, 5 [facility], [facility] sciatica [place], [place], Street, laterality [address]. [place] unspecified tel:[phone] [place], [place], [address], [place] tel:[phone] 0001 - S Mark Encounter for Oct- SHUMEYKO S Inc, Gynecology sterilizationS 5-201 NATHAN. 4417 33-57 tress 5 Mark [place] incontinence [facility], [place], (female) [place], [place] (male)Other [address]. [place], pulmonary tel:[phone], [place] embolism 4496 tel:+[phone] without acute [phone] cor pulmonale 0001 - S Walk-In Chronic back Sep-2 WALKER S Inc, Center pain 6-201 LYNNETTE. 1302 33-[address] [place] [address], [facility] [place], [place], Street, [address]. [place] tel:[phone] [place], [place], [address], [place] tel:[phone] 0001 - S Primary DepressionAlle Sep-1 KAREN S Inc, Care [place] rgyHerpetic 4-201 [address] whitlowEncount 5 [facility] er for smoking [facility], Street, cessation [facility] counselingPDiamond Grove Center, [address]. [place], onary embolism tel:[phone], [place] 6075 tel:[phone] 0001 - S Mark Stress Sep-0 NAYAN S Inc, Gynecology incontinenceAb 9-201 KAUSHAL. [facility]7 33-57 normal 5 Mark [place] PapVulvar [facility], lesion [place], [place], [place] [address]. [place], tel:[phone], [place] 4496 tel:[phone] 0001 - S Mark Routine Aug-3 NAYAN [facility], Gynecology Gynecological KAUSHAL. [facility] 33-57 ExamPersonal 5 Mark [place] history of [facility], pulmonary [place], [place], [place] embolismStress [address]. [place], incontinenceCo tel:[phone], [place] ntraception 4496 tel:[phone] 0001 - S Primary Melanocytic Aug-2 KAREN S Inc, Care [place] nevus 4-201 LUDY. [facility] [address] [place] [address], Street, [facility], [address]. [place], tel:[phone], [place] 6075 tel:[phone] 0001 - S Primary Migraine Aug-1 STRZALKA S Inc, Care [place] 4-201 ALEXIA. [facility] [address], Street, [facility], [address]. [place], tel:[phone], [place] 6075 tel:[phone] 0001 - S Primary Atypical Aug-1 KONEFAL S Inc, Care [place] nevusNeop, 0-[address] bng, skin, arm 5 EDU. 1302 E [facility], [place], [facility] [address]. [place], tel:[phone], [place] 7171 tel:[phone] 0001 - [facility] Primary Migraine Aug-0 CALDERON MILTON. [facility], Care [place] 6-201 4433 [place] 3357 [facility] [address], [place], Street, [address]. [place] tel:[phone] [place], [place], 2220 [address], [place] tel:[phone] 0001 - [facility] Walk-In Pharyngitis, Shayne-2 SIRISHA HO. 4417 [facility], Center acuteStrep 9-201 Mark 33-57 [place] pharyngitis 5 [place], [place], [place], Street, [address]. [place] tel:[phone] [place], [place], 2[address], [place] tel:[phone] 0001 - [facility] Walk-In URI Shayne-2 OFELIA PRASAD. [facility], Center 8-[address] [facility] 91 33-57 [place] 5 [place] [facility], Street, [facility], [address]. [place], tel:[phone], [place] 4151 tel:[phone] 0001 - [facility] Walk-In Gastroenteriti May-0 ZARRINI [facility], Center sBack pain 1-201 JEREMY. 1302 33-57 [place] [address] , [facility], [place], [place], [place] [address]. [place], tel:[phone], [place] 7171 tel:[phone] 0001 - [facility] Walk-In Lumbar Apr-1 TOKOS MANUEL. [facility], Center strainCumulati 1201 [address] 33-57 [place] ve Trauma From 5 St, [place], [place], Street, Motion [address]. [place] tel:[phone] [place], [address], [place] tel:[phone] 0001 - [facility] Primary Back pain Apr-1 YUMIKO ROSE. [facility] Inc, Care [place] 0-201 4433 Mark 33-57 [facility] [address], [place], [place], Street, [address]. [place] tel:[phone] [place], 2220 [address], [place] tel:[phone] 0001 - S Walk-In Cough OFELIA PRASAD. [facility] Inc, Center 3-[address] [facility] 91 33-57 [place] 5 [place] [address], Street, [facility], [address]. [place], tel:[phone], [place] 4151 tel:[phone] 0001 - S Walk-In URI, acute DC S Inc, Center 1-201 NAYELI. 91 33-57 [place] [address] [place] [address], [place], [facility], [place], [address]. [address], [place] tel:[phone] tel:[phone] 0001 - S Walk-In Cough CONSOLAZIO [facility] Inc, Center 0-201 MARJAN. [facility]7 33-57 Mark 5 [facility], [place], [place], [place] [address]. [place], tel:[phone], [place] 2144 tel:[phone] 0001 - S Walk-In Sciatica OFELIA PRASAD. [facility] Inc, Center 0-[address] [facility] 91 33-57 [place] 5 [place] [address], Street, [facility], [address]. [place], tel:[phone], [place] 4151 tel:[phone] 0001 - [facility] Primary ObesityBMI January DEANA. [facility] Inc, Care Rboel 40.0-44.9, 6-201 142 Robel 33-57 [place] adultDietary 5 [facility] counseling in SPC, Street, obesity [facility], [address]. [place], tel:[phone], [place] 2660 tel:[phone] 0001 - [facility] Primary Anxiety YUMIKO ROSE. [facility] Referring [facility], Care [place] disorderTachyc 33 [place] Provider: 3357 [facility] ardia [address], [place], [place], H, [facility] Street, [address]. 4433 [place] tel:[phone] [place], [place], 2220 [address], [address], [place], tel:+60 [place], [address]. [address] tel:[phone] 2019 - [facility] Primary [facility]- [facility] Referring [facility], Care [place] therapeutic 5 COUMADIN Provider: [address] [place] [address] drug 4 CLINIC. 507 COUMADIN [facility], -term use of SP, [facility], 507 [place] [facility], [place], [place], [place], [address]. [facility], [address], [place] history of tel:[phone] [place] tel:+ pulmonary 6075 [place], [place], 11026046 embolism [address]. tel:[phone] 2019 - [facility] Primary Palpitations Dec-0 YUMIKO ROSE. [facility], Care [place] 1 [address] [place] [address] [address], [place], [place], Street, [address]. [place] tel:[phone] [place], [place], 2220 [address], [place] tel:[phone] 2019 - [facility] Walk-In Acute Nov- [facility], Center conjunctivitis WICHITA. [address] [place] [address] 4 91 [facility], Street, [facility], [address]. [place], tel:[phone], [place] 4151 tel:[phone] 2019 - [facility] Primary Tachycardia Nov-1 YUMIKO ROSE. [facility] Referring [facility], Care [place] 8 4433 Mark Provider: [address] [place] [address] [address], [place] Thomson [place], [place], H, [facility] Street, [address]. 4433 [place] tel:[phone] [place], [place], [address], [address], [place], tel:+60 [place], [address]. [address]279017 tel:[phone] 2019 - Emergency Migraine Oct- YUMIKO ROSE. [facility] Inc, 1-201 4433 Mark 33-57 [address], [place], [place], Street, [address]. [place] tel:[phone] [place], [place], 2220 [address], [place] tel:[phone] 0001 - [facility] Primary Encounter for Oct-1 JCFCC Referring [facility] Inc, Care [place] therapeutic 3-201 COUMADIN Provider: [address] [place] [address] drug 4 CLINIC. 507 COUMADIN Berto [facility] Street, -term use of [facility], J[facility], 507 [place] anticoagulants [place], [place], [address]. [facility], [address], [place] embolism tel:[phone] [place] tel:+[phone] [place], [place], [address]. tel:[phone] 0001 - [facility] Primary Migraine Oct-0 KONEFAL [facility] Inc, Care [place] 3-201 KALISAYNSKI 33-57 [facility] EDU. [address], [place], [place] [address]. [place], [place], tel:[phone], [place] 7171 tel:[phone] 0001 - [facility] Walk-In Pediculosis Sep-2 OFELIA PRASAD. [facility], Center 9-201 SW 91 33-57 [place] 4 [place] [address] , Street, [facility], [address]. [place], tel:[phone], [place] 4151 tel:[phone] 0001 - [facility] Mark Encounter for Sep-2 LAKHANI [facility] Inc, Cardiology therapeutic 3-201 CATRACHO. 4417 33-57 drug 4 Mark Berto [facility], -term use of [place], [place], [place] anticoagulants [address]. [place], Pulmonary tel:[phone], [place] embolism 8833 tel:[phone] 0001 - [facility] Primary Encounter for Sep-2 JCFCC Referring [facility] Inc, Care [place] therapeutic 2-201 COUMADIN Provider: [address] [place] [address] drug 4 CLINIC. 507 COUMADIN Berto [facility] Street, -term use of [facility], JCF[facility], 507 [place] anticoagulants [place], [place], [place], [address]. [facility], [address], [place] embolism tel:+63 [place] tel:+ 6075 [place], [place], 129[address]. tel:[phone] 0001 - [facility] Primary Back Sep-1 [facility] Inc, Care [place] painObesityOpi 0-201 33-57 [facility] ate addiction 4 [place], [address], [place] tel:[phone] 0001 - [facility] Primary Encounter for Sep-0 JCFCC [facility] Inc, Care [place] therapeutic 8-201 COUMADIN 33-57 [facility] drug 4 CLINIC. 507 [facility], -term use of [facility], [place] anticoagulants [place], [place], [place], [address]. [address], [place] history of tel:[phone] tel: pulmonary [phone] embolism 0001 - [facility] Primary Opiate Aug-2 [facility] Inc, Care [place] addictionChron 7-201 33-57 [facility] ic low back 4 [place], [address], [place] tel:[phone] 0001 - [facility] Primary Encounter for Aug-2 JCFCC [facility] Inc, Care [place] therapeutic 5-201 COUMADIN 33-57 [facility] drug 4 CLINIC. 507 [facility], -term use of [facility], [place] anticoagulants [place], [place], [address]. [address], [place] history of tel:[phone] tel: pulmonary 6075 [phone] embolism 0001 - [facility] Primary Back pain Aug-1 YUMIKO ROSE. [facility] Inc, Care [place] 9-201 [address] [place] [address] [address], [place], Street, [address]. [place] tel:[phone] [place], [place], 2220 [address], [place] tel:[phone] 0001 - [facility] Primary Encounter for Aug-1 JCFCC [facility] Inc, Care [place] therapeutic 8-201 COUMADIN 33-57 [facility] drug 4 CLINIC. [address], [address], -term use of [facility], [place] anticoagulants [place], [place], [address]. [address], [place] embolism tel:+[phone] tel:[phone] 0001 - [facility] Primary Encounter for JCFCC Referring [facility] Inc, Care [place] therapeutic 5-201 COUMADIN Provider: [address] [place] [address] drug CLINIC. 507 COUMADIN Berto [facility] Street, -term use of [facility], JCF[facility], 507 [place], [address]. [facility], [address], [place] embolism tel:+[phone] [place] tel:+60 [phone] [place], [place], [address]. tel:[phone] 0001 - [facility] Primary Encounter for [facility], Care [place] therapeutic 8-[address] [place] [address] drug CLINIC. 507 Berto [facility], -term use of [facility], [place] anticoagulants [place], [address]. [address], [place] embolism tel:[phone] tel:[phone] 0001 - [facility] Primary Back pain YUMIKO ROSE. S [facility] Inc, Care [place] 4-201 [address] [place] [address] Pkw[address], [place], [place], Street, [address]. [place] tel:[phone] [place], [place], 2220 [address], [place] tel:[phone] 0001 - S Primary Encounter for [facility] Inc, Care [place] therapeutic 4-201 COUMADIN [address] [place] [address] drug CLINIC. [address] [facility], Street, -term use of [facility], [place] anticoagulants [place], [address]. [address], [place] embolism tel:[phone] tel:[phone] 0001 - [facility] Primary Encounter for [facility], Care [place] therapeutic 1-[address] drug CLINIC. [address] [facility], -term use of [facility], [place] anticoagulants [place], [place], [address]. [address], [place] embolism tel:[phone] tel:[phone] 0001 - [facility] Primary Pulmonary Mar- YUMIKO MILTON. [facility] Inc, Care [place] embolism 7-[address], [place], [place], Street, [address]. [place] tel:[phone] [place], [place], [address], [place] tel:[phone] 0001 - [facility] Primary Encounter for Mar- JCFCC [facility] Inc, Care [place] therapeutic 7- COUMADIN [address] [place] [address] drug [address] [place] [address], -term use of SP, [place] anticoagulants [place], [address]. [address], [place] embolism tel:[phone] tel:[phone] 0001 - [facility] Primary Migraine Shayne- [facility], Care [place] [address] [place] [address] 4 [facility], [place], [address], [place] tel:[phone] 0001 - [facility] Primary Lumbago with January- YUMIKO ROSE. [facility], Care [place] sciatica 0-[address], [place], Street, [address]. [place] tel:[phone] [place], [place], [address], [place] tel:[phone] 0001 - [facility] Primary Back pain January- YUMIKO ROSE. [facility], Care [place] 3-[address], [place], Street, [address]. [place] tel:[phone] [place], [place], 22[address], [place] tel:[phone] 0001 - [facility] Primary Chronic low Apr-2 SABA GILLIAM. Referring [facility] Inc, Care [place] back painOther [address] [place] [address], Provider: [address] [place] [address] Chronic Pain 4 [facility], MANE Thomson VanceSABA, [address] [place] [address], [address]. [facility] tel:[phone] [facility], [place], [place], 6075 [place] [address], [place], [place], tel:+ [phone] tel:[phone] 0001 - [facility] Primary Back pain Apr-2 SULEMAN GARNER. [facility], Care [place] 3-201 OLL [address] [place] [address] 4 [place], [place], Street, [address]. [place] tel:[phone] [place], [place], [address], [place] tel:[phone] 0001 - [facility] Primary Lumbar back Apr-2 YUMIKO ROSE. [facility] Referring [facility], Care [place] pain 3 4433 Mark Provider: [address] [place] [address] [address], MILTON CALDERON [facility], [place], H, [facility] Street, [address]. [address] [place] tel:[phone] [place], [place], [address], [address], [facility], tel:[phone] [place], [phone]. [phone] tel:[phone] 0001 - [facility] Primary Left lumbar Apr-0 [facility], [facility] radiculitis 8-201 MASSIEL. 800 33-57 4 [place], [place], Street, [address]. [place] tel:[phone] [place], [place], [address], [place] tel:[phone] 0001 - [facility] Primary Abdominal Oct-1 [facility], [facility] PainBackache 5-201 MASSIEL. [facility] 33-57 3 [place], Street, [address]. [place] tel:[phone] [place], [place], [address], [place] tel:[phone] 0001 - [facility] Walk-In SinusitisBronc Sep-2 Referring [facility], Center hitisBronchiti 8 Provider: Mark s, Acute 3 WALKIN [facility], Street, [address] [place], [place], [address]kw[address], [address], [place], tel:[phone] [place], [phone]. [phone] 0001 - [facility] Primary Lumbago with Aug- [facility], Care [place] sciatica 9-201 MASSIEL. 800 33[address], [place], [place], Street, [address]. [place] tel:[phone] [place], [place], [address], [place] tel:[phone] 0001 - [facility] Walk-In Otitis media Mar- Referring S Inc, Center NOSOtitis 6-201 Provider: 33-57 Mark media NOS 3 WALKIN [facility], Street, [address] [place], [place], Pkw[address], [address], [place], tel:[phone] [place], [phone]. [phone] 0001 - S Walk-In Upper Mar- CONSOLAZIO Referring [facility], Center Respiratory 4-201 MARJAN. 4417 Provider: 33-57 Mark Infection, [address] [facility] [facility], [place], Street, [place], 4401 [place] [address]. [place], [place], tel:[phone] Pkw[address], [address], [place] 2144 [place], tel:[phone] [place], [phone]. [phone] 0001 - [facility] Walk-In Back pain in January- TOLLIVER Referring S [facility], Center pregnancyCompl 1- DIMPLE. Provider: 33-57 [place] ication oth 3 4417 Mark WALKIN [place] spec preg, [facility], [facility], unspec [place], [place], BRIDGE. [place] episodeComplic [address]. [place], ation oth spec tel:[phone], [place] preg, unspec 2144 tel:[phone] 0001 - [facility] Primary Abdominal Apr-0 FOSTER S Inc, Care [place] PainAbdominal 5-201 MALENA. 800 33-[address], [place], [place], Street, [address]. [place] tel:[phone] [place], [address], [place] tel:[phone] 0001 - [facility] Primary Abdominal Mar-1 SKIADAS S Inc, Care [place] PainUpper 9-201 MASSIEL. 800 33-[address], [place] Infection, [place], [place], Street, AcuteAbdominal [address]. [place] PainUpper tel:[phone] [place], [place], Respiratory [address], [place] Infection, tel:[phone] 2019 - [facility] Primary Abdominal Mar-1 [facility] S Inc, Care [place] PainAbdominal 1-201 MASSIEL. 800 33-57 PainLumbago 3 [facility], [place], [place], Street, [address]. [place] tel:[phone] [place], [address], [place] tel: [phone] 2019 - [facility] Primary LumbagoStrain Feb-1 [facility] Referring S Inc, Care [place] of lumbar 3-201 MASSIEL. 800 Provider: 33-57 regionAbdomina 3 [facility], MASSIEL [place], [facility], [place], PainLumbagoLum [address]. 800 Shannan Marti bar Sprain Or tel:[phone] [facility], [place], [place], StrainAbdomina [address] [place] [address], [address], [place], [address]. tel: tel: [phone] 2019 - [facility] Primary Abdominal Feb-0 [facility] Referring S Inc, Care [place] PainAbdominal 5-201 MASSIEL. 800 Provider: 33-57 Pain 3 [facility], MASSIEL [place], [facility], Street, [address]. Eder Marti tel:[phone] [facility], [place], [place], [facility]4 [place], [address], [place], [address]. tel: tel: [phone] 2019 - [facility] Primary Huy-2 [facility] Inc, Care [place] test/exam, 8-201 MASSIEL. 800 33-57 positive 3 [facility] [place], [place], Street, l [address]. [place] painGERDAbdomi tel:[phone] [place], [place], nal PainGERD [address], [place] tel: [phone] 2019 - [facility] Walk-In Positive Sep- Referring S Inc, Center test 7201 Provider: 33-57 [place] 3 WALKIN [place] [facility], [facility] [place], [address], [place] tel:+ [phone] 2019 - [facility] Walk-In Sinusitis, Nov-1 JAE MEYERS. Referring [facility], Center AcuteSinusitis 3201 [address] Central Provider: 33-57 Chris , Acute [address], [place], [place], [facility], [address]. HENRYLeif Marti tel:[phone] [place], [place], [address], [place] tel: [phone] 2019 - [facility] Primary Abdominal Nov-0 SKIADAS Referring [facility], Care [place] PainNausea And 7 MASSIEL. 800 Provider: 33-[address], MASSIEL Thomson nal PainNausea [place], [facility], [place], And Vomiting [address]. 800 Shannan Marti tel:[phone] [facility], [place], [place], [facility] [place], [address], [place], [address]. tel: tel:[phone] 0001 - [facility] Primary Abdominal Nov-0 SKIADAS Referring [facility], Care [place] PainNausea And 1 MASSIEL. 800 Provider: 33-57 VomitingAbdomi 2 Shannan Johnston, MASSIEL Thomson nal PainNausea [place], [place], [facility], And Vomiting [address]. 800 Shannan Marti tel:[phone] Road, [place], [place], [address] [place], [address], [place], [address]. tel: tel:[phone] 2019 - [facility] Primary Abdominal Oct-1 SKIADAS Referring [facility], Care [place] PainGastroente 6-201 MASSIEL. 800 Provider: 33-[address], MASSIEL Thomson PainNoninfecti [place], [place], [facility], ous [address]. 800 Shannan Marti Gastroenteriti tel:[phone] Road, [place], [place], s [address] [place], [address], [place], [address]. tel: tel:[phone] 2019 - [facility] Primary Abdominal Sep-2 SKIADAS [facility] Inc, Care [place] PainDiarrhea 8-201 MASSIEL. 800 33-[address], [place], Street, PainDiarrhea [address]. [place] NOSBackache tel:[phone] [place], [address], [place] tel:[phone] 0001 - [facility] Primary Back pain Mar- S Inc, Care [place] 5-201 33-57 2 [place], [address], [place] tel:[phone] 0001 - [facility] Primary BackacheAbdomi Shayne- S Inc, Care [place] nal 9- 33-57 PainBackacheAb 2 [place], [address], [place] tel:[phone] 0001 - [facility] Primary Back pain January- S Inc, Care [place] 1- 33-57 2 [place], [address], [place] tel:[phone] 0001 - [facility] Walk-In Injury, OFELIA PRASAD. Referring [facility], [place] superficial, 3-201 SWIC 91 Provider: 33-57 [place] corneaInjury, 2 [facility], [facility] [address], [facility], corneaInjuryFormerly [facility] [place], [address]. [place], cornea tel:[phone], [place] 4151 tel:[phone] 0001 - [facility] Primary Sciatica Due Dec-3 SKIADAS Referring [facility], Care [place] To 0-201 MASSIEL. 800 Provider: 33-57 Displacement 2 MASSIEL [place], [facility], Street, DiscSciatica [address]. 800 Shannan Marti Due To tel:[phone] Road, [place], [place], Displacement 0444 [place], [address], [place], [address]. tel:+60 DiscSciatica tel:[phone] Due To [id number] Displacement Of Lumbar DiscObesity 0001 - [facility] Primary Back pain Dec- S Inc, Care [place] 0-201 33-57 2 [place], [address], [place] tel:+ [phone] 0001 - S Primary Lumbago due to Mar-2 SKIADAS S Inc, Care [place] displacement 7-201 MASSIEL. 800 33-57 of 2 [facility], [place] intervertebral [place], [place], Street, disc [address]. [place] tel:[phone] [place], [address], [place] tel:+ [phone] 0001 - S Primary Depression Mar-2 S Inc, Care [place] 0-201 33-57 2 [facility], [place], [address], [place] tel:+ [phone] 0001 - S Primary Bipolar Mar-1 [facility] S Inc, Care [place] affect, 6-201 MASSIEL. 800 33-57 depressedLumba 2 [facility] goRadiculiFisher, [place], Street, lumbosacralBip [address]. [place] olar affect tel:[phone] [place], disord, [address], [place] depressed, tel:[phone] unspecifiedLum [phone] bagoRadiculiti s, Thoracic or Lumbar 0001 - S Walk-In UTIUrinary Oct- Referring S Inc, Center Tract Provider: 33-57 [place] InfectionHerpe 2 [address]ALK[address] [place] s, genital CHENANGO [place], NOSUrinary BRIDGE. [place], [place], InfectionHerpe [address], [place] s, genital tel:[phone] NOSUrinary [phone] Tract InfectionHerpe s, genital NOSUrinary Tract InfectionHerpe s, genital NOSUrinary Tract InfectionHerpe s, genital NOS 0001 - S Primary Abdominal b- [facility], Care [place] PainGERDDiarrh 33-57 ea 2 [place] NOSAbdominal [place], PainGERDDiarrh [place], [place], NOSAmenorrhea [address], [place] tel:[phone] 0001 - S Primary Dehiscence of Aug- SKIADAS Referring S Inc, Care [place] closure of 2-201 MASSIEL. 800 Provider: 33-[address], MASSIEL [place] Cellulitis [place], [place], SKIADAS, Street, [address]. 800 Shannan [place] tel:[phone] Road, [place], [place], [address] [place], [address], [place], [address]. tel: tel:[phone] 0001 - [facility] Primary Abdominal Dec- [facility], Care [place] PainDiarrhea 5- MASSIEL. [facility] 57 NOSAbdominal 1 [facility] [place], Street, NOS [address]. [place] tel:[phone] [place], [place], [facility]4 [address], [place] tel:+ [phone] 2019 - [facility] Primary Abdominal pain Jun- [facility], Care [place] UNSPCF SITEAbdominal 1 [facility] System[facility] [place], [place], [address], [place] tel: [phone] 2019 - [facility] Walk-In Urinary Tract JAE MEYERS. Referring [facility], Center InfectionUrina 110 Central Provider: [place] ry Tract [address], WALKIN [place] InfectionUrina [place], [place], [facility], ry Tract [address]. BRIDGE. [place] InfectionUrina tel:[phone] [place], [place], ry Tract 5[address], [place] Infection tel: [phone] 2019 - [facility] Primary Mar- SAXENA AMINA. [facility], [facility] [place] 6-200 BVAOC [address], [address]. [place] tel:[phone] [place], [place], 85[address], [place] tel:+ [phone] Family History Family Member Diagnosis Age At Onset Maternal uncle Family history of Thyroid disease Father Melanoma No family history of Cancer, colon Maternal uncle hole in aorta (Cause Of ) No family history of Cancer, breast Paternal grandfather Leukemia Paternal grandmother Stroke Maternal aunt Cancer, cervical Maternal uncle Sister Bipolar disorder Father RI 55 Immunizations Vaccine Date Status Comments Influenza, injectable, administered Source: New Immunization quadrivalent, preservative Record free, split virus Influenza, injectable, administered Source: New Immunization quadrivalent, preservative Record free, split virus Influenza, injectable, administered Source: New Immunization quadrivalent, preservative Record free, split virus [id number] Hep B, adult, 3 dose administered Source: New Immunization Record Influenza, injectable, administered Source: New Immunization quadrivalent, preservative Record free, split virus 3 years or older, Fluarix Quad [id number] TDAP (Boostrix or Adacel) administered Source: New [...] Record Payers Payer name Insurance type Covered democrat ID Authorization(s) Nba Lovell [id number] [place] [employer] [place]FABIANO Lovell [id number] [place] [employer] [place] Nas [id number] BX Sam FHP Burton Lovell [id number] BX Sam FHP Burton Lovell [id number] BX Sam FHP Burton Lovell [id number] BX Sam FHP Burton Lovell [id number] Social History Type Description Quantity Date Captured [...] Referred To: ordered GUANACO LEES MD 8 [facility] [place], [address] [id number] Ordered: Referrals: Neurology. GUANACO LEES MD. Consult Referral Referred To: ordered GUS WILLIAMSON DO [address] [place], [address] [phone] Ordered: Referrals: Neurology. GUS WILLIAMSON DO. Follow-up and treat Referral Ordered: ordered GUS WILLIAMSON DO -Neurology (related to Encounter for wellness examination) Referral Referred To: ordered GUS WILLIAMSON DO [address] [place], [address] [phone] Ordered: Referrals: Neurology. GUS WILLIAMSON DO Referral Ordered: ordered Bariatric Surgery (related to Morbid obesity) Referral Referred To: ordered [address] [place], [address] [phone] Ordered: Referrals: Bariatric Surgery. Evaluate and treat Referral Ordered: ordered Neurology (related to Intractable migraine with aura with status migrainosus) Referral Referred To: ordered [address] [place], [address] [phone] Ordered: Referrals: Neurology. Evaluate and treat Referral Referred To: ordered [address] [place], [address] [phone] Ordered: Referrals: Referrals: Location: [facility] Neurology Location: [facility] Neurology Referral Ordered: ordered ALICIA DOSHI MD -Neurology (related to Migraine aura, persistent, intractable) Referral Referred To: ordered ALICIA DOSHI MD [address] [place], [address] [phone] Ordered: Referrals: Neurology. ALICIA DOSHI MD. Follow-up and treat Referral Ordered: ordered HILTON MALIK MD -Bariatric Surgery (related to Class 3 obesity without serious comorbidity with body mass index (BMI) of 50.0 to 59.9 in adult , unspecified obesity type) Referral Referred To: ordered HILTON MALIK MD [address] [facility] [address] [place], [address] [phone] Ordered: Referrals: Bariatric Surgery. HILTON MALIK MD. Evaluate and treat Referral Ordered: ordered Physical Therapy (related to Lumbar spondylosis) Referral Referred To: ordered Physical Therapy Ordered: Referrals: Physical Therapy. Location: [facility] Flyer Repairer [facility] Evaluate and treat Referral Ordered: ordered MRI of lumbar spine W/o Contrast Referral Referred To: ordered Physical Therapy Ordered: Referrals: Physical Therapy. Location: [facility] Flyer Repairer [place]. Evaluate and treat Referral Ordered: ordered *Electrocardiogram, tracing only Referral Ordered: ordered Referrals: Orthopedic Surgery Referral Referred To: ordered LUDY MONGE MD [address] [facility] Floor 2 [place], [address] [phone] Ordered: Referrals: Pain Management. LUDY MONGE MD Referral Ordered: ordered Referrals: [facility] Referral Referred To: ordered JAMAICA REYNOLDS MD [address] [facility] [address] [place], [address] [phone] Ordered: Referrals: Cardiology. JAMAICA REYNOLDS MD Referral Ordered: ordered Referrals: Gastroenterology Appointment date/timeframe: 09/01/2017 Referral Ordered: ordered Referrals: Rheumatology. Location: [facility] Rheumatology. Evaluate and treat Referral Ordered: ordered Xray Hand complete (Must choose side) Right Referral Referred To: ordered JAMAICA REYNOLDS MD [facility] [address] [place] [address], [address] [phone] Ordered: Referrals: Cardiology. JAMAICA REYNOLDS MD. Evaluate and treat Appointment date/timeframe: 3 Weeks Referral Ordered: ordered Referrals: Gastroenterology. Location: [facility]. Evaluate and treat Appointment date/timeframe: 05/02/2016 Referral Ordered: ordered MRI lwr extrm joint, w/ocntrst RT knee Appointment date/timeframe: 1 Day Referral Ordered: ordered Xray Foot complete (Must choose side) Right Appointment date/timeframe: Stat Referral Ordered: ordered Referrals: Orthopedic Surgery. Location: [facility]uate and treat Appointment date/timeframe: 12/13/2015 Referral Referred To: ordered GERMAN GARVIN MD [address] [place], [address] [phone] Ordered: Referrals: Sleep Disorders. GERMAN GARVIN MD. Evaluate and treat Appointment date/timeframe: 12/07/2015 Referral Referred To: ordered ALICIA DOSHI MD [address] [place], [address] [phone] Ordered: Referrals: Neurology. ALICIA DOSHI MD. Evaluate and treat Appointment date/timeframe: 3 Months Referral Referred To: ordered Physical Therapy Ordered: Referrals: Physical Therapy. Location: [facility] Physical Therapy [facility]. Evaluate and treat Appointment date/timeframe: 08/09/2015 Referral Referred To: ordered LAURA REYES [address] [place], [address] [phone] Ordered: LAURA REYES. Allergy/Immun. Consult and treat. [...] Referred To: ordered REGAN MENDOZA [address] [place], [address] [phone] Ordered: REGAN MENDOZA. Neurology. Consult and treat. Appointment date/timeframe: 07/20/2014 Referral Referred To: ordered [facility] Physical Therapy - [place] [address] [place], [address] [phone] Ordered: [facility] Physical Therapy - [place]. Physical Therapy. Evaluate patient, develop plan and implement plan. Appointment date/timeframe: 06/10/2014 Referral Referred To: ordered [facility] [address] [place], [address] [phone] Ordered: [facility]. Pain Management. Consult and treat. Appointment date/timeframe: 1 Month Referral Referred To: ordered DEANA ALVARADO [address] [place], [address] [phone] Ordered: DEANA ALVARADO. Nutrition. Consult and treat. Appointment date/timeframe: 2 Weeks Referral Referred To: ordered [place] PT @ 1 [facility] [address] Ordered: [place] PT @ 1 [facility] 3. Physical Therapy. Consult and treat. Appointment date/timeframe: 1 Week Referral Ordered: ordered . Phys Med/Rehab. Consult and treat. Appointment date/timeframe: 1 Week Referral Ordered: ordered . Physical Therapy. Evaluate patient, develop plan and implement plan. Referral Ordered: ordered U/S Transvaginal OB Appointment date/timeframe: 10/21/2012 Referral Ordered: ordered . Obstetrics/Automotive Diagnostic Technician. Consult and treat. Appointment date/timeframe: 1 Week Referral Ordered: ordered . Gastroenterology. Consult and treat. Appointment date/timeframe: 07/24/2012 Referral Referred To: ordered RAYMUNDO CARVALHO Ordered: RAYMUNDO CARVALHO. Chiropractor. Consult and treat. Referral Ordered: ordered . Neurosurgery. Consult and treat. Appointment date/timeframe: 02/04/2012 Referral Ordered: ordered . Nutrition. Consult and treat. Appointment date/timeframe: 01/27/2012 Referral Referred To: ordered MARGUERITE NAJERA OA [address] [place], [address] [phone] Ordered: MARGUERITE NAJERA. Ortho Surg. Consult and treat. Referral Ordered: ordered . Physical Therapy. Consult and treat. Appointment date/timeframe: 12/25/2011 Referral Ordered: ordered . Psychologist. Consult and treat. Appointment date/timeframe: 12/24/2011 Referral Referred To: ordered NATHAN READ Ordered: NATHAN READ. Obstetrics/Automotive Diagnostic Technician. Consult and treat. Referral Referred To: ordered [facility]YS [facility]MAN JR [facility] [address] [place], [address] Ordered: AMARILYS RAHMAN JR. Gastroenterology. Consult and treat. Referral Referred To: ordered MIRA GRADY [facility] [address] [place] [place], [address] [phone] Ordered: MIRA GRADY. Gastroenterology. Consult and treat. Date Type Problem Goal Intervention Status Start Date [...] Number mg-naloxone 1 mg sublingual route Active [id number] (D. sublingual film every day allow [place]) or to dissolve [id number] slowly in mouth (Steve), without chewing [id number] or swallowing (Maggi), [id number] (Letty), [id number] (Kyle Ríos) MDD 6mg buprenorphine [address] 1 film by 1 film - No Longer Waiver Number mg-naloxone 0.5 mg sublingual route Active [id number] (D. sublingual film every day allow [place]) or to dissolve [id number] slowly in mouth (Steve), without chewing [id number] or swallowing (Maggi), [id number] (Letty), [id number] (Kyle Ríos) MDD 6mg Instructions Date Instruction [...] 4-6 weeks Thank you for choosing the [facility] Walk Related to Sciatica of left [...] Wants to be referred to a specific PHARMACY ASSISTANT intractable who specializes in migraines. Will send [...] medications. However, please see a psychiatrist at [facility] like you are planning to so that they can optimize your medications and you can have your prescriptions filled in by them. Thank you. - As above Related to Other senior living (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 Currently been stable on [...] are trying to get a therapist at [facility] It was nice seeing you today [...] pharmacy changes. - You have gone to [place] during your past two ED visits and [...] You were given the number for [facility]. It was nice meeting you today and [...] with Related to Intractable migraine with your employment case manager for this issue. aura with status migrainosus Also, follow up with me after your visit to [place]. Glad you're feeling better! Please Related to Chest pain, unspecified follow up with Dr. Reynolds. type Please see me at your next Related to Intractable migraine with appointment with your employment case manager. I aura without status migrainosus [...] concerning symptoms. Thank you for choosing the [facility]. We hope that you [...] referral for Related to Intractable migraine with [facility]. In the meantime, aura without status migrainosus please continue taking your migraine medications. Let's go down to 25mg of Lyrica twice Related to Neuropathy a day. Please submit the form so we can go Related to Morbid obesity forth with bariatric surgery. Please make an appointment with me in [...] month to touch base! Please join the [facility] by the end of Related to [...] evaluation and treatment. Thank you for choosing [facility]. We hope that you [...] 2-3 days. Thank you for choosing the [facility]. We hope that you [...] records from unspecified when you were at [facility] and from the psychiatrist you are seeing. 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 Please make sure you follow up with cardiology. Use Tylenol /ice/rest /nakia wrap over Related to Acute pain of left knee the knee, Pl transfer records from [place] Related to Medication management ,abdominal pain management [...] for further workup to rule out a [employer] pathology, and to ensure hemodynamic stability while on blood thinners. Thank you for choosing the [facility]. We hope that you [...] your Related to Obesity, unspecified appointments at [facility]. Please obesity severity, unspecified request that [...] verbalized understanding -Thank you for choosing the [facility]. We hope that you [...] week. Thank you for coming in today. Plenty of rest. Increase fluid Related to [...] or worsen. Thank you for choosing the [facility]. We hope that you [...] in 72 hours, depending on specimen. Continue ice and naproxen as directed Related to [place]'s by orthopedics. Wear your splint. tenosynovitis, right Steroid injection should start working within the next couple of days. Follow up with orthopedics. Your had a cortisone (steroid) Related to [...] warm fluidsrest. Thank you for choosing the [facility]. We hope that you [...] discussed encounter for referring you to our [employer], she is located in the [facility] office, please make a referral up front [...] symptoms occur. Thank you for choosing the [place] [facility]. We hope that you will [...] to inquire about it. Call our office ([facility]) or visit the ER if your symptoms worsens. F/U in 2 weeks or earlier as needed a script wass written for autoPAP and Related to Sleep apnea, obstructive it will be sent to [facility] Patient's INR decreased and overtly Related [...] further evaluation/treatment. Thank you for choosing the [facility]. We hope that you [...] after to discuss options for life-long anticoagulation. Patient would like to proceed with a Related to Stress incontinence retropubic sling. (female) (male) The patient's primary care provider Related to [...] she needs to follow-up with her PCP. Preadmission testing shows an active Related to Urinary tract infection, urinary tract infection at this point site not specified the susceptibilities are not up. Once she is treated she will need to come in the day before surgery for a catheter dip urine to make sure the infection is gone if it is can proceed if not she'll need to be canceled. The patient would like to proceed Related [...] finish prednisone Thank you for choosing the [facility]. We hope that you [...] like to proceed with a retropubic sling. The patient would like to proceed Related to Encounter for with a tubal ligation. She sterilization understands that having had appendicitis and pelvic inflammatory disease and her morbid obesity could affect my ability to perform the tubal ligation. I told the patient she will need [...] PT PTT the morning of the surgery. cool, rest ,f/u up reg pcp, or [...] Exam reported was done recently and another [employer] office. You also reported that you had [...] or worsen Thank you for choosing the [place] [facility]. We hope and expect that [...] one week. Thank you for choosing the [place] [facility]. We hope and expect that [...] days - Thank you for choosing the [place] [facility]. We hope that you will [...] further evaluation. Thank you for choosing the [facility]. We hope that you [...]
--- OUTSIDE RECORDS SUMMARY | 2019-11-01 19:48 | XMS REPORT | Continuity of Care Document ---
:1980 Author Organization 0001 - [facility] Address [address] [place] [address] Phone Care Team Providers Name Role Phone [...] Waiver Number mg-naloxone 0.5 mg sublingual route [id number] (D. sublingual tablet every day nicci Ríos) or to dissolve [id number] slowly in mouth (Steve), without chewing [id number] or swallowing (Maggi), [id number] (Letty), [id number] (Kyle Ríos) MDD 6 mg Wellbutrin XL [...] Number mg-naloxone 1 mg sublingual route Active [id number] (D. sublingual film every day allow Young) or to dissolve [id number] slowly in mouth (Steve), without chewing [id number] or swallowing (Maggi), [id number] (Letty), [id number] (Kyle Ríos) MDD 6mg buprenorphine [address] 1 film by 1 film - No Longer Waiver Number mg-naloxone 0.5 mg sublingual route Active [id number] (D. 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 [facility], [facility] region somatic 507 [facility] 33-[address], [facility], [address]. [place] left sideAcute tel:[phone] [place], [place], midline low [phone], [place] back pain with tel:+60 left-sided [phone] sciatica 0001 - [facility] Walk-In Sciatica of ADALBERTO CARABALLO. Glocal, [place] left side [address] 0 [place], [place], Street, [address]. [place] tel:[phone] [place], [place], [address], [place] tel:[phone] 0001 - [facility] Primary Encounter for Huy-0 DOSHI HARVEY. [facility], Care [place] monitoring 8 [address] , [address] [place] [address] Suboxone 0 [facility], [address]. [address], therapyMigrain tel:[phone] [place] e without aura [address] [place] [address], and without [address], [place] status tel:+60 migrainosus, [phone] not intractable 0001 - S Huy-0 ENGRAVER PICTURE. [facility], Population 3202 . 33[address]57 Health 0 [place], [address], [place] tel:[phone] 0001 - [facility] Primary Encounter for Dec-0 DOSHI HARVEY. [facility], [facility] monitoring [address] Suboxone 9 [facility], [address]. Street, therapyOther tel:[phone] [place] long-term [address] [place] [address], (current) drug [address], [place] therapyGeneral tel:+60 ized anxiety [phone] disorder 0001 - S Primary Nov-2 DOSHI HARVEY. [facility], Care Robel 0-201 [address] , [address] [place] [address] 9 [facility], [address]. Street, tel:+[phone] [address], [address], [place] tel:[phone] 0001 - [facility] Primary Encounter for Oct-3 DOSHI HARVEY. [facility], Care [place] monitoring 1-[address] Suboxone 9 [facility], [address]. [address], therapyOpioid tel:[phone] [place] dependence, [address] [place] [address], uncomplicated [address], [place] tel:[phone] 0001 - [facility] Primary Oct-2 DOSHI HARVEY. [facility], Care [place] 9-201 [address] , [address] 9 [facility], [address]. Street, tel:[phone] [address], [address], [place] tel: [phone] 0001 - [facility] Primary Migraine Oct-2 DOSHI HARVEY. [facility], Edis Marti without aura 4-201 [address] , [address] [place] [address] and without 9 [facility], [address]. Barney, migrainosus, tel:[phone] [place] not [address] [place] [address], intractable [address], [place] tel: [phone] 0001 - S Primary Encounter for Oct-0 DOSHI HARVEY. [facility], [facility] [place] monitoring 3-201 [address] , [address] [place] [address] Suboxone 9 [facility], [address]. Barney, therapyOpioid tel:[phone] [place] dependence, [address] [place] [address], uncomplicatedE [address], [place] ncounter for tel: screening for [phone] other disorder 0001 - [facility] Primary Encounter for Aug-2 DOSHI HARVEY. [facility], Edis Marti monitoring 7- 507 [facility], [address] [place] [address] Suboxone 9 [facility], [address]. Barney, therapyOpioid tel:[phone] [place] dependence, [address] [place] [address], uncomplicated [address], [place] tel: [phone] 0001 - [facility] Primary Encounter for Mar-3 DOSHI HARVEY. [facility], Edis Marti monitoring 1-201 [address] , [address] [place] [address] Suboxone 9 [facility], [address]. Barney, therapyOpioid tel:[phone] [place] dependence, [address] [place] [address], uncomplicated [address], [place] tel: [phone] 0001 - [facility] Primary History of Mar-1 DOSHI HARVEY. [facility], Edis Marti migraineOpioid 6-201 [address] , [address] [place] [address] dependence in 9 [facility] [place], [address]. [place], hyroidism, tel:[phone] [place] unspecified [address] [place] [address], typePE [address], [place] (pulmonary tel:60 thromboembolis [phone] m)Opioid dependence, uncomplicated 0001 - [facility] Primary Migraine with Mar-0 MILLET MACIE. [facility] Inc, Care [place] aura and with [address] status 9 [facility], Berto migrainosus, `, [place], [place], [address]. [place] intractable tel:[phone] [place], [place], [address], [place] tel:+ [phone] 0001 - [facility] Primary Migraine with May-0 ANDREZ STEPHANIE. [facility] Inc, Care [place] aura and with [address] , [address] [place] [address] status 9 SP, [place]erto migrainosus, [place], [place], [address]. [place] intractable tel:[phone] [place], 60[address], [place] tel:+ [phone] 0001 - [facility] Primary Encounter for Dec-2 ANDREZ STEPHANIE. [facility] Inc, Care [place] wellness 5- [address] examinationMig 9 SP, [place] luisana [place], [place], [address]. [place] status tel:[phone] [place], [place], migrainosus, 6075 [address], [place] not tel: intractable [phone] 0001 - [facility] Primary Intractable Nov-1 ANDREZ STEPHANIE. [facility] Inc, Care [place] migraine with 9- [address] aura with 9 SP, Berto status [facility], [place], [address]. [place] erately severe tel:[phone] [place], depression 6075 [address], [place] tel: [phone] 0001 - [facility] Primary Migraine with Huy-2 ANDREZ STEPHANIE. [facility] Inc, Care [place] aura and with [address] status 9 SPC, [place] migrainosus, [place], [place], [address]. [place] intractable tel:[phone] [place], 60[address], [place] tel:+ [phone] 0001 - [facility] Primary Chest pain, Dec-0 ANDREZ STEPHANIE. [facility] Inc, Care [place] unspecified 3-[address], [address] [place] [address] typeIntractabl 8 SP, [place] e migraine [place], [place], [address]. [place] status tel:[phone] [place], migrainosus 6075 [address], [place] tel:[phone] 0001 - [facility] Primary Intractable Nov-2 ANDREZ STEPHANIE. [facility], Edis Marti migraine with 9-[address] aura without 8 [facility], [place] status [place], [place], [address]. [place] bid tel:[phone] [place], obesityBody 6075 [address], [place] mass index tel:+60 (BMI) 50-59.9 [id number] , adult 0001 - S Primary Abdominal wall Nov-1 ANDREZ STEPHANIE. [facility], Edis Marti pain in 6-[address] [place] [address] periumbilical 8 SP, [place] regionMigraine [place], [address]. [place] with status tel:[phone] [place], migrainosus, 6075 [address], [place] not tel: intractable [phone] 0001 - [facility] Primary Neuropathic Oct-1 ANDREZ STEPHANIE. [facility], Edis Marti painIntractabl [address] [place] [address] e migraine 8 [facility] with aura with [facility], [place], [address]. [place] migrainosus tel:+[phone] [place], 60[address], [place] tel:[phone] 0001 - [facility] Primary Intractable Oct-0 ANDREZ STEPHANIE. [facility], Edis Marti migraine with [address] [place] [address] aura with 8 SP, [place] status [facility], [place], [address]. [place] tel:[phone] [place], 60[address], [place] tel:[phone] 0001 - [facility] Walk-In Acute right Sep-1 WINTERSTEIN S Inc, Center otitis 8-201 CHRISTOPHER. [address] mediaAcute 8 [address] [place] bronchitis, [address], Street, unspecified [place], [address]. [place], [place], al history of tel:[phone], [place] nicotine 4151 tel: dependence [phone] 0001 - S Primary Intractable [facility]. [facility], Care [place] migraine with 7-201 [address] , 33-57 [facility] aura without 8 [facility], [place] status [facility], [place], [address]. [place] bid tel:[phone] [place], [place], obesityNeuropa 6075 [address], [place] thyWhiplash tel: injury to [phone] neck, subsequent encounterBMI pediatric, 85% to less than 95th percentile for ageSprain of ligaments of cervical spine, initial encounterPerso n injured in unsp motor-vehicle accident, traffic, initBody mass index (BMI) 50-59.9 , adult 0001 - [facility] Primary Migraine aura, [facility]. [facility], Care [place] persistent, 9-201 [address] , [address] [place] [address] intractable 8 [facility], [place], [place], [address]. [place] tel:[phone] [place], [place], 60[address], [place] tel: [phone] 0001 - S Primary Intractable ANDREZ STEPHANIE. [facility], Care [place] migraine with 4-201 [address] aura without 8 [facility], [place] status [facility], [place], [address]. [place] erate episode tel:[phone] [place], of recurrent 6075 [address], [place] major tel: depressive [phone] disorderNeurop athyMorbid obesityBody mass index (BMI) 50-59.9 , adult 0001 - S Primary Intractable [facility]. [facility] Inc, Care [place] migraine with 8-201 [address] aura without 8 [facility], [place] status [facility], [place], [address]. [place] acco tel:[phone] [place], [place], dependenceBipo 6075 [address], [place] lar 2 disorder tel:+ [phone] 0001 - [facility] Primary Major Shayne-2 BARBOUR [facility] Inc, Care depressive 6-201 RANDI. 4417 33-57 [place] disorder, [address] [place] recurrent, [facility], Street, moderateMorbid [place], [place], [place] (severe) [address]. [place], obesity due to tel:[phone], [place] excess 7365 tel:+60 calories [phone] 0001 - [facility] Primary Migraine, Shayne- ROOT COCO. [facility], Edis Marti unspecified, 1-201 507 [facility], [address] [place] [address] not 8 [place], [address]. Street, without status tel:+63 [place] migrainosus [address] [place] [address], [address], [place] tel: [phone] 0001 - [facility] Primary Migraine, ROOT COCO. [facility], Edis Marti unspecified, 4-201 507 [facility], [address] [place] [address] not 8 [place], [address]. Street, without status tel: [place] migrainosus [address] [place] [address], [address], [place] tel: [phone] 0001 - [facility] Primary Intractable Apr-2 ROOT COCO. [facility], Edis Marti migraine with 5-[address] aura with 8 [facility] [place], [address]. Street, migrainosusAne tel:[phone] [place] mary jo, 6075 [place], [place] [address], [place] typeHypothyroi tel: dism, [phone] unspecified typeElevated glucose level 0001 - [facility] Primary Chronic Apr-0 ANDREZ BROWN. [facility], Edis Marti midline low 4-[address] back pain with 8 SPC, [place] left-sided [place], [place], [place], [address]. [place] chronic tel:[phone] [place], [place], painClass 3 6075 [address], [place] obesity tel: without [phone] serious comorbidity with body mass index (BMI) of 50.0 to 59.9 in adult, unspecified obesity typeBody mass index (bmi) 50-59.9 , adult 0001 - [facility] Body mass Mar-2 MONGE [facility], Management index (BMI) 1-201 LUDY. 52 33-57 50-59.9 , [address], [address], spondylosisSpo 2, [place] Marti ndylolysis, [place], [place], [place] [address]. [address], [place] unspecifiedDor tel:[phone] tel:+60 salgia, 7468 [phone] unspecifiedObe sity, unspecified 0001 - [facility] Primary Hospital ANDREZ BROWN. [facility], Care [place] discharge 4- [address] follow-upMigra 8 [facility], [place] ine without [place], [place], [place], [address]. [place] without status tel:[phone] [place], migrainosus, 6075 [address], [place] not tel:+60 intractableUns [phone] pecified asthma, uncomplicatedP neumonia, unspecified organismPerson al history of nicotine dependence 0001 - [facility] Walk-In Acute OFELIA PRASAD. [facility], Center [facility], [facility] 91 [address] unspecified [address] [place] [address], Street, [place], [facility], [address]. [place], [place], tel:[phone], [place] 4151 tel:+60 [phone] 0001 - [facility] Primary Intractable ANDREZ BROWN. [facility], Edis Marti migraine with [address] aura without 8 [facility], Berto status [facility], [place], [address]. [place] pital tel:[phone] [place], discharge 6075 [address], [place] follow-up tel:[phone] 0001 - [facility] Primary Acute Aug- ROOT COCO. [facility], [facility] [place] left-sided low 8- [address] back pain 7 [place], [address]. Street, sciatica tel:[phone] [place] 6075 [place], [address], [place] tel:[phone] 0001 - [facility] Walk-In Viral upper Aug- BERG CRISTOFER. [facility], Center respiratory [address], [place] infectionOther [place], [place], Street, viral agents [address], [place]. [place] as the cause tel:[phone] [place], [place], of diseases 9816 [address], [place] classified tel:+60 elsewherePerso [phone] nal history of nicotine dependence 0001 - [facility] Bilateral low Nov-2 MUKESH S Inc, Management back pain with BELLA. 52 33-57 sciatica, [address], Street, laterality [place], [place], [address]. [place], anticoagulant tel:[phone], [place] therapyBody 5898 tel:+60 mass index [id number] (BMI) 45.0-49.9, adult 0001 - S Walk-In DysuriaUrinary Nov-1 [facility], Center tract 9- CHRISTOPHER. [address] infection, 7 [address] [place] site not [address], Street, specified [place] [facility], [address]. [place], tel:[phone], [place] 4151 tel:[phone] 0001 - S Ortho Acute pain of Nov-0 LOWRIE CASEY. S Inc, Ctr Ortho left [facility] 4433 33[address] knee[address] [place] oral pain E, [place], [place], [facility] [place], [address]. [place] left knee tel:[phone] [place], [place], 2220 [address], [place] tel:[phone] 0001 - S Ortho Pain in Nov-0 LOWRIE CASEY. S Inc, Ctr Ortho unspecified S 4433 [address] Berot E, [place], [place], [address]. [place] tel:[phone] [place], [place], 2220 [address], [place] tel:[phone] 0001 - [facility] WS Preop Nov-0 SHUKRI S Inc, Cardiology cardiovascular MYRIAM. 30 33-57 examPSVT 7 Berto Berto (paroxysmal Street, [address], supraventricul 250, [place] Marti ar [place], [place], [facility], [place], tachycardia) [address]. [address], [place] tel:[phone] tel:[phone] 0001 - [facility] Primary Major Jun-3 ROOT COCO. [facility] Inc, Care [place] depressive 1-201 507 [facility], [address] [place] [address] disorder, 7 [place], [address]. [facility], tel:[phone] [place] unspecifiedCos 6075 [place], [place], tochondritis [address], [place] tel:[phone] 0001 - [facility] [place] Medication Jun- [facility], IM Primary managementChro 6-201 YA MANUJA. Care julianne left-sided 7 [address] [place] low back pain [facility], with Internal [place] left-sided Medicine, [place], [place], [place], [address], [place] chronic [address]. tel:+60 painAcute pain tel:[phone] of left knee 7365 0001 - [facility] Edlmer Chronic Sep-2 [facility], IM Primary GERDBenign 1-201 YA MANUJA. Care atrial 7 [address] [place] arrhythmiaOthe [facility], [place], r pulmonary Internal [place] embolism Medicine, [place], [place], [place], [address], [place] cor pulmonale, [address]. tel:+60 unspecified tel:[phone] chronicityHypo 7365 thyroidism (acquired)Pers onal history of nicotine dependence 0001 - [facility] Walk-In Acute Sep-1 BUFFUM [facility], Center suprapubic 0-201 ISIS. [address] painExcessive 7 [place] vaginal [facility], bleeding [place], [place], [place] [address]. [place], [place], tel:[phone], [place] 2144 tel:[phone] 0001 - [facility] Primary Seborrheic Apr- ROOT COCO. [facility] Inc, Care [place] dermatitisMigr 5201 507 [facility], 33-57 City facundo, 7 [facility] [place], [address]. Street, not tel:[phone] [place] intractable, 6075 [place], [place], without status [address], [place] migrainosusObe tel:+60 sity, [phone] unspecified obesity severity, unspecified obesity typeBody mass index (BMI) 45.0-49.9, adult 0001 - S Walk-In Hypotension, INDIO CAMPBELL. [facility], Center unspecified [address] [place] [address], Street, [address]. [place] tel:[phone] [place], [address], [place] tel:[phone] 0001 - [facility] Primary Obesity, ROOT COCO. [facility], Care [place] unspecified [address] [place] [address] 57 [facility] obesity 7 [place], [address]. Street, unspecified tel:[phone] [place] obesity 6075 [place], [place], typeChest [address], [place] pain, tel:+60 unspecified [phone] typeMigraine, unspecified, not intractable, without status migrainosus 0001 - [facility] Walk-In Skin infection Mar- IC JUSTINA. [facility], Center [facility]7 [place] [address] [place] [address], Street, [address]. [place] tel:[phone] [place], 2[address], [place] tel:[phone] 0001 - [facility] Primary Neurotic Mar-0 KAREN [facility], Care [place] excoriationsPo LUDY. [facility] 33-57 [facility] lyarthralgia 7 [facility], Street, [facility], [address]. [place], tel:[phone], [place] 6075 tel:[phone] 0001 - [facility] Walk-In De Quervain's DC S [facility], Center tenosynovitis, NAYELI. 91 [address] rightViral URI 7 [facility] with cough [address], Street, [facility] [place], [facility] [place], [address]. [address], [place] tel:[phone] tel:[phone] 0001 - S Ortho De Quervain's CATARINA S Inc, Ctr Ortho tenosynovitis, 0-201 IRENA. [facility] 33-57 right 7 [address] [facility] [address], Street, [place], [place], [place] [address]. [place], tel:[phone], [place] 2220 tel:[phone] 0001 - [facility] Primary Wrist pain, JORGE S Inc, Care [place] right 7-201 UPASANA. 4417 -57 [facility] 7 [facility], [place], [place], [place], [place] [address]. [place], tel:[phone], [place] 7365 tel:[phone] 0001 - [facility] Walk-In Croup, KONEFAL S Inc, Center spasmodicAcute 3- KACZYNSKI [address] pharyngitis, 6 EDU. [address] [place] unspecifiedTob [facility], [place], acco use [place], [place], [place] [address]. [place], tel:[phone], [place] 7171 tel:[phone] 0001 - [facility] Primary Acute pain of Jun-2 DEMAINE MARY. S Inc, Care [place] left 4-201 507 [facility], [address] shoulderAcute 6 SP, [place] left-sided [place], [place], [place], [address]. [place] painArm tel:[phone] [place], paresthesia, 6075 [address], [place] leftLow back tel:[phone] painCervicalgi [phone] a 0001 - S Primary Moderate Oct-1 KAREN S Inc, Care [place] episode of 3-201 LUDY. 507 33[address]57 City recurrent [address], [place] major [facility], Street, depressive [place], [place], [address]. [place], tel:[phone], [place] 6075 tel:[phone] 0001 - S Primary Moderate Sep-2 KAREN [facility], Care [place] episode of LUDY. 507 33-57 [facility] recurrent [address], [place] major SPC, Street, depressive [place], [place], [address]. [place], tel:[phone], [place] 6075 tel:[phone] 0001 - S Primary Tenderness of Sep-1 SHEIKH CHADWICK. S Inc, Care [place] chest wall [address], 33-57 City 6 [facility], [place], [place], [address]. [place] tel:[phone] [place], [place], 6075 [address], [place] tel:[phone] 0001 - S Primary GERD with Apr-0 KAREN [facility], Care [place] esophagitis LUDY. 507 33[address], Berto [facility], Street, [place], [facility], [address]. [place], tel:[phone], [place] 6075 tel:[phone] 0001 - S Primary Gastro-esophag Apr-0 EKHLAS S Inc, Care [place] eal reflux HOSSAIN. 50[facility]-[address] [place] [address] disease [address] , [place] without [facility], Street, esophagitisSpr [facility] [place], [address]. [place], ankle, tel:[phone], [place] unspecified 6075 tel:+160 ligament, [phone] subsequent encounter 0001 - S Primary Sprain of left Apr-0 KAREN [facility], Care [place] ankle, LUDY. [address] [place] [address] unspecified [address] , [place] ligament, SP, Street, subsequent [place], [address]. [place], [place], ity, walking, tel:[phone], [place] marching and 6075 tel:[phone] 0001 - S Primary Weight loss Mar-0 KAREN [facility], Care [place] counseling, LUDY. 507 33-57 [facility] encounter [address] , [place] forObesity, SP, Street, unspecified [facility] [place], [address]. [place], severity, tel:[phone], [place] unspecified 6075 tel:[phone] typeSevere episode of recurrent major depressive disorder, without psychotic featuresSprain of other ligament of left ankle, subsequent encounterSprai n of other ligament of left ankle, initial encounterBody mass index (BMI) 50-59.9 , adult 0001 - S Pain in right Shayne-2 S Inc, Orthopedics kneePerson 3357 [place] consulting for 6 [facility] of Street, exam or test [place], [address], [place] tel:[phone] 0001 - S Primary Right knee Shayne- KAREN S Inc, Care [place] injury, LUDY. 507 33-57 [facility] subsequent [address] [place] [address] encounterPatel [facility], Street, lofemoral [facility] [place], [address]. [place], both tel:[phone], [place] kneesUnspecifi 6075 tel:+60 ed injury of [id number] right lower leg, initial encounterPatel lofemoral disorders, left knee 0001 - S Pain in right Shayne-1 S Inc, Orthopedics knee 0 [address]357 [place] 6 [facility], [place], [address], [place] tel:[phone] 0001 - S Primary Arthritis of Shayne-0 EKHLAS S Inc, Care [place] knee, right HOSSAIN. [address], [facility], Street, [place], [facility], [address]. [place], tel:[phone], [place] 6075 tel:[phone] 0001 - S [place] Encounter for JERAULD [employer] Inc, [facility] therapeutic WESTLEY. 4417 33-57 Coumadin drug level 6 [facility], [place], term (current) [place], [facility] [place] [address]. [place], anticoagulants tel:[phone], [place] Personal 8833 tel:+60 history of [id number] other venous thrombosis and embolismEncoun ter for therapeutic drug monitoringLong -term Use of Anticoagulants Pulmonary Embolus 0001 - [facility] Primary Unspecified Apr-1 VAZQUEZ GLENN. [facility], Care [place] asthma with 8 [address] 33-57 City (acute) [address], [address] [place] exacerbationTo 203, [place], [place], [place], [address]. [place] tel:[phone] [place], [address], [place] tel:[phone] 0001 - S Walk-In Bronchitis Apr-0 SIRISHA HO. 4417 [facility], Center with 7 [place] 33-57 [place] bronchospasmTo 6 [facility], [place] bacco use [place], [place], Street, [address]. [place] tel:[phone] [place], [address], [place] tel:[phone] 0001 - S Walk-In CroupTobacco Apr-0 WALKER [facility], Center use 4201 LYNN[address]. 1302 33-57 Routt [address] , [place], [place], Street, [address]. [place] tel:[phone] [place], [address], [place] tel:[phone] 0001 - [facility] Walk-In Right foot Mar-2 CRISTY WHITNEY. [facility], Center painActivity, 4433 [place] 33-57 Routt other 6 [facility] specified Rheumatology, Street, [place], [place], [place] [address]. [place], tel:[phone], [place] 2879 tel:[phone] 0001 - [facility] Avulsion Mar-2 [facility], Orthopedics fracture of CASEY. [facility] 33-57 [place] ankle, left, 33 [place] [facility], Pkw[address], Street, initial [place], [place], [place] encounterOth [address]. [place], fracture of tel:[phone], [place] upper and 2220 tel:+[phone] lower end of [id number] left fibula, init 0001 - [facility] Pain in Mar-2 WARCHOCKI [facility] Inc, Orthopedics unspecified CASEY. [facility] [place] ankle and 6 4433 [place] joints of [address], Street, unspecified [place], [facility] foot [address]. [place], tel:[phone], [place] 2220 tel:[phone] [place] [address] Primary Avulsion Nov- HOSSAIN [facility], [facility] fracture of 8 JR. [facility] distal end of 6 [place] fibula [facility] [address], EW[address], [place], [place], [place], [address]. [address], [place] tel:[phone] tel:[phone] [place] [address] Sleep Sleep apnea, Nov- BHARATHI [facility], Center obstructiveAnx GERMAN. 93 iety disorder, [address] [place] [address], [facility], Street, y mass index [place] ([place], [address]. [place], 45.0-49.9, tel:[phone], [place] adultOther 2048 tel:+160 dorsalgiaGastr [id number] o-esophageal reflux disease without esophagitisSno ring 0001 - [facility] Primary Intractable Mar-0 KAREN [facility] Inc, [facility] migraine, LUDY. 507 [facility] unspecified 6 Main [facility] migraine SPC, Street, typeObstructiv [place] [facility] [place], [address]. [place], tel:[phone], [place] 6075 tel:[phone] [place] [address] [place] Encounter for Oct- [facility] Inc, [facility] therapeutic 2 Coumadin drug level [address] [place] [facility] [address], term use [place], ersonal [address], [place] history of tel:[phone] for therapeutic drug monitoringLong -term Use of Anticoagulants Pulmonary Embolus 0001 [facility] Primary ImpetigoSprain Oct- CASEY [facility] Inc, Care [place] of other CHRISTOPHER. 33-57 City ligament of [address], [place] left ankle, Communicable Street, sequelaPulmona Diseases, [place] ry [place], [place], [place], [place], [address]. [address], [place] term use of tel:[phone] tel:+ anticoagulant [phone] 0001 - [facility] Sprain of left Oct- LOWRICandelario PEÑA. [facility], Orthopedics ankle, 0-201 [facility] 4433 33-57 [place] unspecified [address] [place] ligament, E, [place], Street, [facility] [place], [address]. [place] encounter tel:[phone] [place], 2220 [address], [place] tel:+ [phone] 0001 - [facility] Primary Sprain Oct-0 NI ANIRUDH. [facility], Care [place] 4417 [place] [address], Street, [address]. [place] tel:[phone] [place], [address], [place] tel: [phone] 0001 - [facility] [place] Encounter for Oct-0 [facility], [facility] therapeutic 57 Coumadin drug level 6 [facility], term (current) [place] use of [place], [place], anticoagulants [address], [place] Personal tel:+ history of [id number] pulmonary embolismEncoun ter for therapeutic drug monitoringLong -term Use of Anticoagulants Pulmonary Embolus 0001 - [facility] Primary Left ankle NI ANIRUDH. [facility], Care [place] strain, 4417 [place] [address] subsequent [address] [place] [address] encounterStraEl Segundo, [place], Street, n of [facility] [address]. [place] msl/tnd at tel:[phone] [place], [place], ank/ft level, 7365 [address], [place] left foot, tel: [phone] 0001 - S Walk-In URI, OFELIA PRASAD. [facility], Center acuteTobacco 2-201 [facility] 91 33-57 Routt use [address] [place] [address], Street, [facility], [address]. [place], tel:[phone], [place] 4151 tel:[phone] 0001 - [facility] [place] Stress Sep- SHUMEYKO [facility] Inc, Gynecology incontinence 8- NATHAN. 4417 33-57 (female) 6 [place] Berto (male)Encounte [facility], r for other [place], [facility] specified [address]. [place], surgical tel:[phone], [place] aftercare 4496 tel:[phone] 0001 - [facility] [place] Family Huy- SHUMEYKO [facility] Inc, Gynecology planningStress 1- NATHAN. 4417 33-57 incontinence 6 [place] Thomson (female) [facility], (male)Other [place], [place], [place] acute [address]. [place], postprocedural tel:[phone], [place] painBody mass 4496 tel:+1-60 index (BMI) 77002876 50-59.9 , adult 0001 - [facility] [place] Post-op Huy-0 BORDENET [facility] Inc, Gynecology painBody mass 8- LOREN. 52 33-57 index (BMI) 6 Berto Thomson 45.0-49.9, [place], adult [facility], [address]. [place], tel:[phone], [place] 5895 tel:[phone] 0001 - [facility] Primary Saddle embolus Huy-0 KAREN [facility], Care [place] of pulmonary 6 LUDY. 507 33-57 [facility] artery w/o 6 [facility] acute cor SPC, Street, pulmonale [facility], [address]. [place], tel:[phone], [place] 6075 tel:[phone] 0001 - [facility] [place] Pyuria Dec-3 NAYAN [facility], Gynecology 1- KAUSHAL. 4417 33-57 5 [place] Berto [facility], [place], [place], [place], [place] [address]. [place], tel:[phone], [place] 4496 tel:[phone] 0001 - [facility] [place] Urinary tract Dec-3 SHUMEYKO [facility] Inc, Gynecology infection, NATHAN. 4416 site not 5 Delmeranalilia Thomson specified [facility], [place], [place], [place] [address]. [place], tel:[phone], [place] 4496 tel:[phone] 0001 - [facility] [place] Pre-procedure Dec-2 SHUMEYKO [facility] Inc, Gynecology lab exam 3- NATHAN. 441657 5 [place] Berto [facility], [place], [place] [address]. [place], tel:[phone], [place] 4496 tel:[phone] 0001 - [facility] Walk-In Blunt trauma, Nov- [facility] Inc, Center left eye, CHRISTOPHER. Routt initial 5 91 [facility], [place], ing against or [facility] [place], [address]. [place], other objects, tel:[phone], [place] init encntr 4151 tel:[phone] 0001 - [facility] [place] Urinary tract Nov-2 SHUMEYKO [employer], Gynecology infection, NATHAN. 4416 site not 5 [place] Berto specified [facility], [place], [place] [address]. [place], tel:[phone], [place] 4496 tel:[phone] 0001 - [facility] [place] Family Nov- SHUMEYKO [employer], Gynecology planningStress 2 NATHAN. 4416 3357 incontinence 5 [place] Thomson (female) [facility], (male)Personal [place], [place] [address]. [place], pulmonary tel:[phone], [place] embolismUrinar 4496 tel:+160 y tract [id number] infection, site not specifiedEncou nter for other preprocedural examination 0001 - [facility] Primary Pre-operative Nov-1 KAREN [facility] Inc, Care [place] clearanceAcute 2 LUDY. 507 -57 [facility] saddle [address] , [place] pulmonary [facility], Street, embolism [place], [address]. [facility], [place], cor tel:[phone], [place] pulmonaleEncou 6075 tel:+60 nter for [id number] immunizationEn counter for sterilizationS tress incontinence (female) (male)Other pulmonary embolism without acute cor pulmonale 0001 - S Primary Bilateral low Nov-0 DEMAINE MARY. [facility], Care [place] back pain with 2-[address], 33-57 City sciatica, 5 [facility], Berto sciatica [place], [place], [place], [address]. [place] unspecifiedSac tel:[phone] [place], rococcygeal 6075 [address], [place] pain tel:[phone] 0001 - [facility] Walk-In Bilateral low Oct-2 INDIO CAMPBELL. S Inc, Center back pain with 5-201 4417 [place] 33-57 Routt sciatica, 5 [facility], [facility] sciatica [place], Street, laterality [address]. [place] unspecified tel:[phone] [place], [address], [place] tel:[phone] 0001 - [facility] [place] Encounter for Oct- SHUMEYKO S Inc, Gynecology sterilizationS 5-201 NATHAN. 4417 33-57 tress 5 [place] Berto incontinence [facility], (female) [place], [place] (male)Other [address]. [place], pulmonary tel:[phone], [place] embolism 4496 tel:+60 without acute [phone] cor pulmonale 0001 - S Walk-In Chronic back Sep-2 WALKER S Inc, Center pain 6-201 LYNNETTE. 1302 33-57 [address], [facility] [place], Street, [address]. [place] tel:[phone] [place], [address], [place] tel:[phone] 0001 - S Primary DepressionAlle Sep-1 KAREN S Inc, Care [place] rgyHerpetic 4-201 LUDY. 507 33-57 City whitlowEncount [address], [place] er for smoking [facility], Street, cessation [facility] counseling[facility]ul[facility], [address]. [place], onary embolism tel:[phone], [place] 6075 tel:[phone] 0001 - S [place] Stress Sep-0 NAYAN S Inc, Gynecology incontinenceAb 9- KAUSHAL. 4417 33-57 normal 5 [place] PapVulvar [facility], lesion [place], [place], [place] [address]. [place], tel:[phone], [place] 4496 tel:[phone] 0001 - S [place] Routine Aug-3 NAYAN [facility], Gynecology Gynecological KAUSHAL. 4417 33-57 ExamPersonal 5 [place] Berto history of [facility], pulmonary [place], [place], [place] embolismStress [address]. [place], incontinenceCo tel:[phone], [place] ntraception 4496 tel:[phone] 0001 - [facility] Primary Melanocytic Aug-2 KAREN S Inc, Care [place] nevus 4-201 LUDY. [facility] 33-[address], Street, [facility], [address]. [place], tel:[phone], [place] 6075 tel:[phone] 0001 - [facility] Primary Migraine Aug-1 STRZALKA S Inc, Care [place] 4-201 ALEXIA. [facility] 33-[address], Street, [facility], [address]. [place], tel:[phone], [place] 6075 tel:[phone] 0001 - S Primary Atypical Aug-1 KONEFAL S Inc, Care [place] nevusNeop, 0-201 KACZYNSKI 33-57 [facility] bng, skin, arm 5 EDU. 1302 E Psychiatric, [facility] [address]. [place], tel:[phone], [place] 7171 tel:[phone] 0001 - S Primary Migraine Aug-0 YUMIKO ROSE. [facility] Inc, Care [place] 6-201 4433 [place] 33-57 [facility] [address], [employer], [place], Street, [address]. [place] tel:[phone] [place], 2220 [address], [place] tel:[phone] 0001 - [facility] Walk-In Pharyngitis, Feb- SIRISHA HO. 4417 [facility] Inc, Center acuteStrep 9- [place] 33-57 Routt pharyngitis 5 [place], [place], [place], Street, [address]. [place] tel:[phone] [place], [address], [place] tel:[phone] 0001 - S Walk-In URI Feb- OFELIA CASEYALD. [facility], Center 8- [facility] 91 33-57 Routt 5 Routt [facility], Street, [facility], [address]. [place], tel:[phone], [place] 4151 tel:[phone] 0001 - [facility] Walk-In Gastroenteriti January- ZARRINI [facility], Center sBack pain JEREMY. 1302 33-[address] [facility], [place], [place], [place] [address]. [place], tel:[phone], [place] 7171 tel:[phone] 0001 - S Walk-In Lumbar Apr- TOKOS MANUEL. [facility], Center strainCumulati [address] 33-57 Routt ve Trauma From 5 St, [place], [place], Street, Motion [address]. [place] tel:[phone] [place], [address], [place] tel:[phone] 0001 - [facility] Primary Back pain Apr-1 CALDERON MILTON. [facility] Inc, Care [place] 0 4433 [place] 3357 [facility] [address], [employer], [place], Street, [address]. [place] tel:[phone] [place], 2220 [address], [place] tel:[phone] 0001 - [facility] Walk-In Cough GILBERT OSMAR. [facility] Inc, Center 3-[address] [facility] 91 33-57 Routt [address], Street, [facility], [address]. [place], tel:[phone], [place] 4151 tel:[phone] 0001 - S Walk-In URI, acute DC [facility] Inc, Center 1-201 NAYELI. 91 33-57 Routt [address], Street, [facility], [place], [address]. [address], [place] tel:[phone] tel:[phone] 0001 - S Walk-In Cough CONSOLAZIO [facility], Center 0-201 MARJAN. [facility]7 33-[address], [facility] [address]. [place], tel:[phone], [place] 2144 tel:[phone] 0001 - [facility] Walk-In Sciatica OFELIA PRASAD. [facility] Inc, Center 0-[address] [facility] 91 33-57 Routt [address], Street, [facility], [address]. [place], tel:[phone], [place] 4151 tel:[phone] 0001 - [facility] Primary ObesityBMI MAY DEANA. [facility] Inc, Care [place] 40.0-44.9, 142 Rob[place] 33[address] [place] [address] [place] [address] counseling in SPC, Street, obesity [facility], [address]. [place], tel:[phone], [place] 2660 tel:[phone] 0001 - [facility] Primary Anxiety YUMIKO ROSE. [facility] Referring [facility], Edis Marti disorderTachyc [address] [place] [address] Provider: [address] [place] [address] ardi 4 Pkwamanda EMILTON [facility], [place], H, [facility], [address]. [address] [place] [address] tel:[phone] [place], [place], [address], [address], [place], tel:+ [place], [address]. [phone] tel:[phone] 4416 - [facility] Primary Encounter for Aug- [facility] Referring [facility] Inc, Care [place] therapeutic 5 COUMADIN Provider: [address] [place] [address] drug 4 CLINIC. [address] [facility] [address], -term use of [facility], [facility], 507 [place] anticoagulants [place], [place], [place], [place], [address]. [facility], [address], [place] history of tel:[phone] [place] tel: pulmonary 6075 [place], [place], [id number] embolism [address]. tel:[phone] 0001 - [facility] Primary Palpitations Dec-0 YUMIKO ROSE. [facility], Care [place] [address], [place] [employer], [place], Street, [address]. [place] tel:[phone] [place], [place], 2220 [address], [place] tel: [phone] 0001 - [facility] Walk-In Acute Nov- [facility] conjunctivitis LINDSAY. [address] 4 91 [facility], [facility], [address]. [place], [place], tel:[phone], [place] 4151 tel: [phone] - [facility] Primary Tachycardia Jul- YUMIKO ROSE. [facility] Referring [facility] Inc, Care [place] 4433 [place] Provider: [address] [place] [address] [address], MILTON CALDERON [facility], [place], H, [facility] Street, [address]. 4033 [place] tel:[phone] [place], [place], 2220 [address], [address], [place], tel:+60 [place], [address]. [address]28[address] tel:[phone] 4416 - Emergency Migraine Oct- YUMIKO ROSE. [facility] Inc, 4433 [place] 33 [address], [facility] Street, [address]. [place] tel:[phone] [place], 2220 [address], [place] tel:[phone] 0001 - S Primary Encounter for Oct-1 JCFCC Referring S Inc, Care [place] therapeutic 3-201 COUMADIN Provider: [address] [place] [address] drug CLINIC. [facility] COUMADIN Berto [facility] Street, -term use of [facility], J[facility], 507 [place] anticoagulants [place], [address]. [facility], [address], [place] embolism tel:[phone] [place] tel:[phone] [place], [place], [address]. tel:[phone] 0001 - S Primary Migraine Oct-0 KONEFAL S Inc, Care [place] 3-201 AN[address]KI [address] [place] [address] [facility], [place], [place], [place] [address]. [place], [place], tel:[phone], [place] 7171 tel:[phone] 0001 - S Walk-In Pediculosis Sep-2 OFELIA PRASAD. S Inc, Center 9-[address] [facility] 91 -[address] [place] [address], Street, [facility], [address]. [place], tel:[phone], [place] 4151 tel:[phone] 0001 - S [place] Encounter for Sep-2 LAKHANI S Inc, Cardiology therapeutic 3-201 CATRACHO. [facility]7 [facility] drug [address] [place] [address] [facility], -term use of [place], [place], [place] anticoagulants [address]. [place], Pulmonary tel:[phone], [place] embolism 8833 tel:[phone] 0001 - S Primary Encounter for Sep-2 JCFCC Referring S Inc, Care [place] therapeutic 2-201 COUMADIN Provider: [address] [place] [address] drug CLINIC. 507 COUMADIN Berto [facility] Street, -term use of [facility], JCF[facility], 507 [place] anticoagulants [place], [address]. [place], [address], [place] embolism tel:63 [place] tel: 6075 [place], [place], [id number]. tel:[phone] 0001 - S Primary Back Sep-1 S Inc, Care [place] painObesityOpi 0-201 33-57 City ate addiction 4 [place], [address], [place] tel: [phone] 0001 - S Primary En[facility] for Sep-0 [facility], Care [place] therapeutic 8-201 COUMADIN 33-57 [facility] drug 4 CLINIC. 507 [facility], -term use of [facility], [place] anticoagulants [place], [place], [place], [address]. [address], [place] history of tel:63 tel: pulmonary 6075 [phone] embolism 0001 - S Primary Opiate Aug-2 S Inc, Care [place] addictionChron 7-201 33-57 [facility] ic low back 4 [place], [address], [place] tel: [phone] 0001 - S Primary Encounter for Aug-2 [facility] Inc, Care [place] therapeutic 5-201 COUMADIN 33-57 [facility] drug 4 CLINIC. 507 [facility], -term use of [facility], [place] anticoagulants [place], [place], [address]. [address], [place] history of tel:63 tel: pulmonary [phone] [phone] embolism 0001 - S Primary Back pain Aug-1 YUMIKO ROSE. S [facility] Inc, Care [place] 9-201 44[address] [place] [address], [place] [employer], [place], Street, [address]. [place] tel:[phone] [place], 2220 [address], [place] tel: [phone] 0001 - S Primary Encounter for Aug-1 [facility], Care [place] therapeutic 8-201 COUMADIN 33-57 [facility] drug 4 CLINIC. 507 [facility], -term use of [facility], [place] anticoagulants [place], [place], [address]. [address], [place] embolism tel:[phone] tel:[phone] 0001 - [facility] Primary Encounter for JCFCC Referring [facility] Inc, Care [place] therapeutic 5-201 COUMADIN Provider: [address] [place] [address] drug CLINIC. 507 [address] [facility] [address], -term use of [facility], JCF[facility], 507 [place] anticoagulants [place], [address]. [facility], [address], [place] embolism tel:[phone] [place] tel:+60 [phone] [place], [place], [address]. tel:[phone] 0001 - [facility] Primary [facility] for [facility] Inc, Care [place] therapeutic 8-[address] [place] [address] drug CLINIC. 507 [facility], -term use of [facility], [place] anticoagulants [place], [address]. [address], [place] embolism tel:[phone] tel: [phone] 0001 - [facility] Primary Back pain YUMIKO ROSE. S [facility] Inc, Care [place] 4-201 [address] [place] [address] [place] [address] Pkwy E, [place] [employer], [place], Street, [address]. [place] tel:[phone] [place], [place], 2220 [address], [place] tel:[phone] 0001 - [facility] Primary Encounter for [facility] Inc, Care [place] therapeutic 4-[address] drug CLINIC. 507 [facility], -term use of [facility], [place] anticoagulants [place], [address]. [address], [place] embolism tel:[phone] tel:[phone] 0001 - [facility] Primary Encounter for JCC [facility] Inc, Care [place] therapeutic 1-[address] [place] [address] drug CLINIC. 507 [facility], -term use of [facility], [place] anticoagulants [place], [address]. [address], [place] embolism tel:[phone] tel:[phone] 0001 - [facility] Primary Pulmonary Mar- YUMIKO ROSE. [facility] Inc, Care [place] embolism 7-[address], [place] [employer], [place], Street, [address]. [place] tel:[phone] [place], 2220 [address], [place] tel:[phone] 0001 - [facility] Primary Encounter for Mar- JCFCC [facility] Inc, Care [place] therapeutic 7-[address] [place] [address] drug [address] [place] [address], -term use of SP, [place], [address]. [address], [place] embolism tel:[phone] tel:[phone] 0001 - [facility] Primary Migraine Shayne- [facility] Inc, Care [place] 8-201 -[address] [place] [address] 4 [facility], [place], [address], [place] tel:[phone] 0001 - [facility] Primary Lumbago with January-2 YUMIKO ROSE. [facility] Inc, Care [place] sciatica 0-[address], [place] [employer], [place], Street, [address]. [place] tel:[phone] [place], [place], [address], [place] tel:[phone] 0001 - [facility] Primary Back pain January- YUMIKO ROSE. [facility], Care [place] 3-[address], [place] [employer], [place], Street, [address]. [place] tel:[phone] [place], [address], [place] tel:[phone] 0001 - [facility] Primary Chronic low Apr-2 SABA GILLIAM. Referring [facility] Inc, Care [place] back painOther 8-[address] [place] [address], Provider: [address] [place] [address] Chronic Pain 4 [facility], MANE Thomson QuapawSABA, [address] [place] [address], [address]. [facility] [place] tel:[phone] [facility], [place], 60[address] [place] [address], [place], [place], tel:[phone] tel:[phone] - [facility] Primary Back pain Apr-2 SULEMAN GARNER. [facility], Care [place] 3-201 OLL [address] [place], [place], Street, [address]. [place] tel:[phone] [place], [address], [place] tel:[phone] - [facility] Primary Lumbar back Apr-2 YUMIKO ROSE. [facility] Referring [facility], Care [place] pain 3- 4433 [place] Provider: [address] [place] [address] [address], MILTON CALDERON [facility], [place], H, [facility] Street, [address]. 4433 [place] tel:[phone] [place], [place], [address], [address], [place], tel:[phone] [place], [phone]. [phone] tel:[phone] - [facility] Primary Left lumbar Apr-0 [facility], [facility] radiculitis 8-201 MASSIEL. 800 33-57 [address] [place], [place], Street, [address]. [place] tel:[phone] [place], [address], [place] tel:[phone] 0001 - [facility] Primary Abdominal Oct-1 [facility], [facility] PainBackache 5-201 MASSIEL. [facility] 33-57 3 [place], [place], Street, [address]. [place] tel:[phone] [place], [address], [place] tel:[phone] - [facility] Walk-In SinusitisBronc Sep-2 Referring [facility], Center hitisBronchiti 8 Provider: 33-57 [place], Acute 3 WALKIN [facility], Street, [address] [place], [place], [address]kw[address] [place], [address], [place], tel:[phone] [place], [phone]. [phone] 0001 - [facility] Primary Lumbago with Aug- [facility], [facility] sciatica 9-201 MASSIEL. 800 33-57 3 [place], [place], Street, [address]. [place] tel:[phone] [place], [address], [place] tel:[phone] 0001 - S Walk-In Otitis media Mar- Referring S [facility], Center NOSOtitis 6-201 Provider: 33-57 [place] media NOS 3 WALK[address] [place], Street, 4401 [place], [place], Pkw[address], [address], [place], tel:[phone] [place], [phone]. [phone] 0001 - S Walk-In Upper Mar- CONSOLAZIO Referring [facility], Center Respiratory 4-201 MARJAN. 4417 Provider: 33-57 [place] Infection, 3 [place] WALKIN [place] Acute [facility], [place], Street, [place], 4401 [place] [address]. [place], [place], tel:[phone] [address]kw[address], [address], [place] 2144 [place], tel:[phone] [place], [phone]. [phone] 0001 - S Walk-In Back pain in January- TOLLIVER Referring S [facility], Center pregnancyCompl 1-201 DIMPLE. Provider: 33-57 Routt ication oth 3 4417 [place] WALKIN [place] spec preg, [facility], [facility], unspec [place], [place], BRIDGE. [place] episodeComplic [address]. [place], ation oth spec tel:[phone], [place] preg, unspec 2144 tel:[phone] 0001 - [facility] Primary Abdominal Apr-0 FOSTER S Inc, [facility] PainAbdominal 5-201 MALENA. 800 33-[address], [place], [place], Street, [address]. [place] tel:[phone] [place], [address], [place] tel:[phone] 0001 - S Primary Abdominal Mar-1 SKIADAS S Inc, Care [place] PainUpper 9-201 MASSIEL. 800 33-[address], [place] Infection, [place], [place], Street, AcuteAbdominal [address]. [place] PainUpper tel:[phone] [place], Respiratory [address], [place] Infection, tel:[phone] 0001 - [facility] Primary Abdominal Mar-1 [facility] Inc, Care [place] PainAbdominal 1-201 MASSIEL. 800 33-57 PainLumbago 3 [facility], [place], [place], Street, [address]. [place] tel:[phone] [place], [place], [facility]4 [address], [place] tel:[phone] - [facility] Primary LumbagoStrain Feb-[address] [facility] Referring S Inc, Care [place] of lumbar 3-201 MASSIEL. 800 Provider: 33-57 regionAbdomina 3 [facility], MASSIEL [place], [place], [facility], [place], PainLumbagoLum [address]. 800 Shannan Marti bar Sprain Or tel:[phone] [facility], [place], [place], StrainAbdomina [address] [place] [address], [address], [place], [address]. tel: tel:[phone] - [facility] Primary Abdominal Feb-[address] [facility] Referring S Inc, Care [place] PainAbdominal 5-201 MASSIEL. 800 Provider: 33-57 Pain 3 [facility], [place], [facility], [place], [address]. 800 Shannan Marti tel:[phone] [place], [place], [address] [place] [address], [address], [place], [address]. tel:+ tel:[phone] - [facility] Primary Huy-2 [facility] Inc, Care [place] test/exam, 8201 MASSIEL. 800 33-57 positive 3 [facility] [place]ms, [place], Street, l [address]. [place] painGERDAbdomi tel:[phone] [place], nal PainGERD [facility] [address], [place] tel:[phone] - [facility] Walk-In Positive Sep-2 Referring S Inc, Center test 7201 Provider: 33-57 Routt 3 WALKIN [facility], [facility] [place], [address], [place] tel:+ [phone] 0001 - [facility] Walk-In Sinusitis, JAE MEYERS. Referring [facility], Center AcuteSinusitis 3-201 [address] Provider: 33-57 Routt , Acute [address], WALKIN Berto [place], [place], [facility], [address]. BRIDGE. Marti tel:[phone] [place], [place], [address], [place] tel: [phone] - [facility] Primary Abdominal Nov-0 SKIADAS Referring [facility], Care [place] PainNausea And 7201 MASSIEL. 800 Provider: 33- VomitingAbdomi [address], MASSIEL Thomson nal PainNausea [place], [place], [facility], And Vomiting [address]. 800 Shannan Marti tel:[phone] [facility], [place], [place], [address] [place] [address], [address], [place], [address]. tel: tel:[phone] - [facility] Primary Abdominal Nov-0 SKIADA Referring [facility], Care [place] PainNausea And 1201 MASSIEL. 800 Provider: 33- VomitingAbdomi 2 Shannan Johnston, MASSIEL Thomson nal PainNausea [place], [place], [facility], And Vomiting [address]. 800 Shannan Marti tel:[phone] [facility], [place], [place], [address] [place] [address], [address], [place], [address]. tel: tel:[phone] - [facility] Primary Abdominal Oct-1 SKIADA Referring [facility], Care [place] PainGastroente 6-201 MASSIEL. 800 Provider: 33-57 ritisAbdominal 2 Shannan Johnston, MASSIEL Thomson PainNoninfecti [place], [place], [facility], ous [address]. 800 Shannan Marti Gastroenteriti tel:[phone] [facility], [place], [place], s [address] [place] [address], [address], [place], [address]. tel: tel:[phone] - [facility] Primary Abdominal Sep-2 SKIADAS S Inc, Care [place] PainDiarrhea 8-201 MASSIEL. 800 33-[address], [place], [place], Street, PainDiarrhea [address]. [place] NOSBackache tel:[phone] [place], [address], [place] tel:[phone] 0001 - [facility] Primary Back pain Mar- S Inc, Care [place] 5 33-57 2 [place], [address], [place] tel:[phone] 0001 - S Primary BackacheAbdomi Shayne- S Inc, [facility] [place] nal 9 33-57 PainBackacheAb 2 [place] [facility] [place], [address], [place] tel:[phone] 0001 - S Primary Back pain January- S Inc, Care [place] 57 2 [place], [address], [place] tel:[phone] 0001 - S Walk-In Injury, OFELIA PRASAD. Referring [facility], Center superficial, [address] [facility] 91 Provider: Routt corneaInjury, 2 [facility], [address], [facility], corneaInjury, [facility] [place], [address]. [place], cornea tel:[phone], [place] 4151 tel:[phone] 0001 - [facility] Primary Sciatica Due SKIADAS Referring S Inc, [place] To 0-201 MASSIEL. 800 Provider: 33- Displacement 2 CampbellMASSIEL [place] Of Lumbar [place], [place], SKIADAS, Street, DiscSciatica [address]. 800 Shannan Marti Due To tel:[phone] Road, [place], [place], Displacement 0444 [place], [address], [place], [address]. tel:+60 DiscSciatica tel:[phone] Due To [phone] Displacement Of Lumbar DiscObesity 0001 - [facility] Primary Back pain Dec- S Inc, Care [place] 0-201 33-57 2 [place], [address], [place] tel:[phone] 0001 - [facility] Primary Lumbago due to Mar-2 SKIADAS S Inc, Care [place] displacement 7- MASSIEL. 800 33-[address], Berto intervertebral [place], [place], Street, disc [address]. [place] tel:[phone] [place], [address], [place] tel:[phone] 0001 - S Primary Depression Mar-2 S Inc, Care [place] 0-201 33-57 2 [facility], [place], [address], [place] tel:[phone] 0001 - S Primary Bipolar Mar-1 SKIWALDRONS S Inc, Care [place] affect, 6-201 MASSIEL. 800 33-57 depressedLumba 2 [facility], [place] goRadiculitis, [place], [place], Street, lumbosacralBip [address]. [place] olar affect tel:[phone] [place], [place], disord, [address], [place] depressed, tel:[phone] unspecifiedLum [phone] bagoRadiculiti s, Thoracic or Lumbar 0001 - S Walk-In UTIUrinary Feb- Referring S Inc, Center Tract Provider: 33-57 Routt InfectionHerpe 2 WALKIN [place] s, genital CHENANGO [place], NOSUrinary BRID[place]. [place], [place], InfectionHerpe [address], [place] s, genital tel:[phone] NOSUrinary [phone] Tract InfectionHerpe s, genital NOSUrinary Tract InfectionHerpe s, genital NOSUrinary Tract InfectionHerpe s, genital NOS 0001 - S Primary Abdominal Feb- S Inc, Care [place] PainGERDDiarrh 7 33-57 ea [address] [place] [address], PainGERDDiarrh [place], [place], NOSAmenorrhea [address], [place] tel:[phone] 0001 - S Primary Dehiscence of Aug- SKIADAS Referring S Inc, Care [place] closure of 2-201 MASSIEL. 800 Provider: 33-[address], MASSIEL Berto Cellulitis [place], [place], SKIWALDRONS, Street, [address]. 800 [facility] tel:[phone] [place], [place], [address] [place], [address], [place], [address]. tel:+ tel:[phone] 0001 - [facility] Primary Abdominal Dec- SKIADAS [facility], Care [place] PainDiarrhea 5-201 MASSIEL. 800 33-57 NOSAbdominal 1 [facility], [place], [place], Street, NOS [address]. [place] tel:[phone] [place], [address], [place] tel:+ [phone] 0001 - [facility] Primary Abdominal pain Jun- [facility], Care [place] UNSPCF 9-201 33-57 SITEAbdominal 1 [facility] [place], [place], [address], [place] tel:[phone] - [facility] Walk-In Urinary Tract JAE MEYERS. Referring [facility], Center InfectionUrina 110 Central Provider: 57 [address] Tract [address], WALKIN [facility] InfectionUrina [place], [place], [facility], ry Tract [address]. BRIDGE. [place] InfectionUrina tel:[phone] [place], ry Tract [address], [place] Infection tel:[phone] 0001 - [facility] Primary SAXENA AMINA. [facility], Edis Marti 6-200 [facility] [address], [address]. [place] tel:[phone] [place], [address], [place] tel:+ [phone] Family History Family Member Diagnosis Age At Onset Maternal uncle Family history of Thyroid disease Father Melanoma No family history of Cancer, colon Maternal uncle hole in aorta (Cause Of ) No family history of Cancer, breast Paternal grandfather Leukemia Paternal grandmother Stroke Maternal aunt Cancer, cervical Maternal uncle Sister Bipolar disorder Father [place] 55 Immunizations Vaccine Date Status Comments Influenza, injectable, administered Source: New Immunization quadrivalent, preservative Record free, split virus Influenza, injectable, administered Source: New Immunization quadrivalent, preservative Record free, split virus Influenza, injectable, administered Source: New Immunization quadrivalent, preservative Record free, split virus 1047-6742 Hep B, adult, 3 dose administered Source: New Immunization Record Influenza, injectable, administered Source: New Immunization quadrivalent, preservative Record free, split virus 3 years or older, Fluarix Quad 3027-8561 TDAP (Boostrix or Adacel) administered Source: New [...] Insurance type Covered constitution party ID Authorization(s) [facility] [id number] [facility] [id number] [facility] [id number] BX Sam P [place] [id number] BX Sam FHP [place] [id number] BX Sam FHP [place] [id number] BX [facility] [place] [id number] Social History Type Description Quantity Date Captured Comments Unknown Vital Signs Date / Height Weight [...] Referred To: ordered GUANACO LEES MD 8 [facility] [place], [address] [phone] Ordered: Referrals: Neurology. GUANACO LEES MD. Consult Referral Referred To: ordered GUS WILLIAMSON DO [address] [place], [address] [phone] Ordered: Referrals: Neurology. GUS WILLIAMSON DO. Follow-up and treat Referral Ordered: ordered GUS WILLIAMSON DO -Neurology (related to Encounter for wellness examination) Referral Referred To: ordered GUS WILLIAMSON DO [address] [place], [address] [phone] Ordered: Referrals: Neurology. GUS WILLIAMSON DO Referral Ordered: ordered Bariatric Surgery (related to Morbid obesity) Referral Referred To: ordered [address] [place], [address] [phone] Ordered: Referrals: Bariatric Surgery. Evaluate and treat Referral Ordered: ordered Neurology (related to Intractable migraine with aura with status migrainosus) Referral Referred To: ordered [address] [place], [address] [phone] Ordered: Referrals: Neurology. Evaluate and treat Referral Referred To: ordered [address] [place] [address], [address] [phone] Ordered: Referrals: Referrals: Location: [facility] Neurology Location: [facility] Neurology Referral Ordered: ordered ALICIA DOSHI MD -Neurology (related to Migraine aura, persistent, intractable) Referral Referred To: ordered ALICIA DOSHI MD [address] [place], [address] [phone] Ordered: Referrals: Neurology. ALICIA DOSHI MD. Follow-up and treat Referral Ordered: ordered HILTON MALIK MD -Bariatric Surgery (related to Class 3 obesity without serious comorbidity with body mass index (BMI) of 50.0 to 59.9 in adult , unspecified obesity type) Referral Referred To: ordered HILTON MALIK MD [address] [facility] [address] [place], [address] [phone] Ordered: Referrals: Bariatric Surgery. HILTON MALIK MD. Evaluate and treat Referral Ordered: ordered Physical Therapy (related to Lumbar spondylosis) Referral Referred To: ordered Physical Therapy Ordered: Referrals: Physical Therapy. Location: [facility] Driver Service Technician [facility]. Evaluate and treat Referral Ordered: ordered MRI of lumbar spine W/o Contrast Referral Referred To: ordered Physical Therapy Ordered: Referrals: Physical Therapy. Location: [facility] Driver Service Technician [place]. Evaluate and treat Referral Ordered: ordered *Electrocardiogram, tracing only Referral Ordered: ordered Referrals: Orthopedic Surgery Referral Referred To: ordered LUDY MONGE MD [address] [facility] Floor 2 [place], [address] [phone] Ordered: Referrals: Pain Management. LUDY MONGE MD Referral Ordered: ordered Referrals: [facility] Referral Referred To: ordered JAMAICA REYNOLDS MD [address] [facility] [address] [place], [address] [phone] Ordered: Referrals: Cardiology. JAMAICA REYNOLDS MD Referral Ordered: ordered Referrals: Gastroenterology Appointment date/timeframe: 09/01/2017 Referral Ordered: ordered Referrals: Rheumatology. Location: [facility] Rheumatology. Evaluate and treat Referral Ordered: ordered Xray Hand complete (Must choose side) Right Referral Referred To: ordered JAMAICA REYNOLDS MD [facility] [address], [address] [phone] Ordered: Referrals: Cardiology. JAMAICA REYNOLDS MD. Evaluate and treat Appointment date/timeframe: 3 Weeks Referral Ordered: ordered Referrals: Gastroenterology. Location: [facility]. Evaluate and treat Appointment date/timeframe: 05/02/2016 Referral Ordered: ordered MRI lwr extrm joint, w/ocntrst RT knee Appointment date/timeframe: 1 Day Referral Ordered: ordered Xray Foot complete (Must choose side) Right Appointment date/timeframe: Stat Referral Ordered: ordered Referrals: Orthopedic Surgery. Location: [facility] Orthopedics [place]. Evaluate and treat Appointment date/timeframe: 12/13/2015 Referral Referred To: ordered GERMAN GARVIN MD [address] [place], [address] [phone] Ordered: Referrals: Sleep Disorders. GERMAN GARVIN MD. Evaluate and treat Appointment date/timeframe: 12/07/2015 Referral Referred To: ordered ALICIA DOSHI MD [address] [place], [address] [phone] Ordered: Referrals: Neurology. ALICIA DOSHI MD. Evaluate and treat Appointment date/timeframe: 3 Months Referral Referred To: ordered Physical Therapy Ordered: Referrals: Physical Therapy. Location: [facility] Physical Therapy [facility] Evaluate and treat Appointment date/timeframe: 08/09/2015 Referral Referred To: ordered LAURA REYES [address] [place], [address] [phone] Ordered: LAURA REYES. Allergy/Immun. Consult and treat. [...] Referred To: ordered REGAN MENDOZA [address] [place], [address] [phone] Ordered: REGAN MENDOZA. Neurology. Consult and treat. Appointment date/timeframe: 07/20/2014 Referral Referred To: ordered [facility] Physical Therapy - [address] Br [address] [place], [address] [phone] Ordered: [facility] Physical Therapy - Routt Br. Physical Therapy. Evaluate patient, develop plan and implement plan. Appointment date/timeframe: 06/10/2014 Referral Referred To: ordered [facility] [address] [place], [address] [phone] Ordered: [facility]. Pain Management. Consult and treat. Appointment date/timeframe: 1 Month Referral Referred To: ordered DEANA ALVARADO [address] [place], [address] [phone] Ordered: DEANA ALVARADO. Nutrition. Consult and treat. Appointment date/timeframe: 2 Weeks Referral Referred To: ordered [facility] PT @ 1 [facility] [address] Ordered: [facility] PT @ 1 [facility] 3. Physical Therapy. Consult and treat. Appointment date/timeframe: 1 Week Referral Ordered: ordered . Phys Med/Rehab. Consult and treat. Appointment date/timeframe: 1 Week Referral Ordered: ordered . Physical Therapy. Evaluate patient, develop plan and implement plan. Referral Ordered: ordered U/S Transvaginal OB Appointment date/timeframe: 10/21/2012 Referral Ordered: ordered . Obstetrics/Machinery Rigger. Consult and treat. Appointment date/timeframe: 1 Week Referral Ordered: ordered . Gastroenterology. Consult and treat. Appointment date/timeframe: 07/24/2012 Referral Referred To: ordered RAYMUNDO CARVALHO Ordered: RAYMUNDO CARVALHO. Chiropractor. Consult and treat. Referral Ordered: ordered . Neurosurgery. Consult and treat. Appointment date/timeframe: 02/04/2012 Referral Ordered: ordered . Nutrition. Consult and treat. Appointment date/timeframe: 01/27/2012 Referral Referred To: ordered MARGUERITE NAJERA OA [address] [place], [address] [phone] Ordered: MARGUERITE NAJERA. Ortho Surg. Consult and treat. Referral Ordered: ordered . Physical Therapy. Consult and treat. Appointment date/timeframe: 12/25/2011 Referral Ordered: ordered . Psychologist. Consult and treat. Appointment date/timeframe: 12/24/2011 Referral Referred To: ordered NATHAN READ Ordered: NATHAN READ. Obstetrics/Machinery Rigger. Consult and treat. Referral Referred To: ordered AMARILYS RAMHAN JR GCLINIC [address] [place], [address] Ordered: AMARILYS RAHMAN JR. Gastroenterology. Consult and treat. Referral Referred To: ordered MIRA GRADYINIC [address] [place], [address] [phone] Ordered: MIRA GRADY. Gastroenterology. Consult and treat. Appointment [place] Type Problem Goal Intervention Status Start Date [...] Number mg-naloxone 1 mg sublingual route Active [id number] (D. sublingual film every day allow [place]) or to dissolve [id number] slowly in mouth (Steve), without chewing [id number] or swallowing (Maggi), [id number] (Letty), [id number] (Kyle Ríos) MDD 6mg buprenorphine [address] 1 film by 1 film - No Longer Waiver Number mg-naloxone 0.5 mg sublingual route Active [id number] (D. sublingual film every day allow [place]) or to dissolve [id number] slowly in mouth (Steve), without chewing [id number] or swallowing (Maggi), [id number] (Letty), [id number] (Kyle Ríos) MDD 6mg Instructions Date Instruction [...] 4-6 weeks Thank you for choosing the S Walk Related to Sciatica of left side [...] Wants to be referred to a specific GENERAL MERCHANDISE SALESPERSON intractable who specializes in migraines. Will send [...] medications. However, please see a psychiatrist at [facility] like you are planning to so that they can optimize your medications and you can have your prescriptions filled in by them. Thank you. - As above Related to Other long-term (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 Currently been stable on [...] are trying to get a therapist at [facility] It was nice seeing you today [...] pharmacy changes. - You have gone to [facility] during your past two ED visits and [...] given the number for [facility]. It was nice meeting you today and [...] with Related to Intractable migraine with your catalytic case operator for this issue. aura with status migrainosus Also, follow up with me after your visit to [facility]. Glad you're feeling better! Please Related to Chest pain, unspecified follow up with Dr. Reynolds. type Please see me at your next Related to Intractable migraine with appointment with your catalytic case operator. I aura without status migrainosus will try [...] concerning symptoms. Thank you for choosing the [facility] Walk Ins. We hope that you will [...] referral for Related to Intractable migraine with [facility]. In the meantime, aura without status [...] month to touch base! Please join the [facility] by the end of Related to Class [...] 2-3 days. Thank you for choosing the [facility] Walk Ins. We hope that you will [...] records from unspecified when you were at [facility] and from the psychiatrist you are seeing. You have been receiving ECT and you are requesting medical clearance however you have not followed up with the associate professor of library media. Please make sure you follow up with cardiology. Use Tylenol /ice/rest /nakia wrap over Related to Acute pain of left knee the knee, Pl transfer records from [place] Related to Medication management ,abdominal pain management [...] for further workup to rule out a [employer] pathology, and to ensure hemodynamic stability while on blood thinners. Thank you for choosing the [facility]. We hope that you will [...] your Related to Obesity, unspecified appointments at [facility]. Please obesity severity, unspecified request that [...] verbalized understanding -Thank you for choosing the [facility]. We hope that you will [...] or worsen. Thank you for choosing the [facility]. We hope that you will [...] warm fluidsrest. Thank you for choosing the [facility]. We hope that you will [...] discussed encounter for referring you to our field sales trainer, she is located in the [facility] office, please make a referral up front [...] the ER Thank you for choosing the [facility]. We hope and expect that [...] symptoms occur. Thank you for choosing the [facility]. We hope that you will [...] to inquire about it. Call our office ([facility]) or visit the ER if your symptoms worsens. F/U in 2 weeks or earlier as needed a script wass written for autoPAP and Related to Sleep apnea, obstructive it will be sent to [facility] Patient's INR decreased and overtly Related [...] further evaluation/treatment. Thank you for choosing the [facility]. We hope that you will [...] finish prednisone Thank you for choosing the [facility]. We hope that you will [...] Exam reported was done recently and another [employer] office. You also reported that you had [...] or worsen Thank you for choosing the [facility]. We hope and expect that [...] one week. Thank you for choosing the [place] [facility]. We hope and expect that [...] days - Thank you for choosing the [facility]. We hope that you will [...] reducing medication.- Thank you for choosing the [facility]. We hope that you will [...] further evaluation. Thank you for choosing the [facility]. We hope that you will [...]
--- OUTSIDE RECORDS SUMMARY | 2019-11-01 19:48 | XMS REPORT | Continuity of Care Document ---
:1980 Author Organization 0001 - [facility] Address [address] [place] [address] Phone Care Team Providers Name Role Phone HARVEY DOSHI MD Unavailable Unavailable Allergies, Adverse Reactions, Alerts Substance Reaction Status prasterone (DHEA) Active CALCIUM PHOSPHATE,DIBASIC Active calcium carbonate Active PROCHLORPERAZINE MALEATE (mild to moderate) Active PROCHLORPERAZINE EDISYLATE (mild to moderate) Active prochlorperazine (mild to moderate) Active METOCLOPRAMIDE HCL Active Medications Medication Instructions Dosage Effective Status Comments Dates (start - stop) buprenorphine 2 place 3 tablet by 3 tablet - Active Waiver Number mg-naloxone 0.5 mg sublingual route [id number] (D. sublingual tablet every day allow [place]) or to dissolve [id number] slowly in mouth (Steve), without chewing [id number] or swallowing (Maggi), [id number] (Letty), [id number] (Kyle Ríos) MDD 6 mg Wellbutrin XL [...] - Active gram/dose oral oral route every powder day mixed with 8 oz. water, juice, [...] Active oral route 2 times every day Zubsolv 5.7 mg-1.4 place 1 tablet by 1.00 tablet - No Longer mg sublingual sublingual route Active tablet every day allow to dissolve slowly in mouth without chewing or swallowing buprenorphine 4 place 1 film by 1 film - No Longer Waiver Number mg-naloxone 1 mg sublingual route Active [id number] (D. sublingual film every day allow [place]) or to dissolve [id number] slowly in mouth (Steve), without chewing [id number] or swallowing (Maggi), [id number] (Letty), [id number] (Kyle Ríos) MDD 6mg buprenorphine [address] 1 film by 1 film - No Longer Waiver Number mg-naloxone 0.5 mg sublingual route Active [id number] (D. sublingual film every day allow [place]) or to dissolve [id number] slowly in mouth (Steve), without chewing [id number] or swallowing (Maggi), [id number] (Letty), [id number] (Kyle Ríos) MDD 6mg buprenorphine 8 place 1 tablet by 1.00 tablet - No Longer SKYE: mg-naloxone 2 mg sublingual route Active [id number] sublingual tablet every day allow to dissolve slowly in mouth without chewing or swallowing Problems Condition Effective Dates (start - Clinical Status stop) Body mass index (BMI) 50-59.9 , - adult Encounter for monitoring Suboxone maintenance therapy Migraine without aura and without status migrainosus, not intractable Encounter for monitoring Suboxone maintenance therapy 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 Generalized anxiety disorder Encounter [...] right Encounter for therapeutic drug level monitoring intermission coordinator (current) use of anticoagulants Personal history of [...] apnea Encounter for therapeutic drug level monitoring intermission coordinator use of anticoagulant Personal history of pulmonary embolism Encounter for therapeutic drug - monitoring Long-term Use of Anticoagulants - Pulmonary Embolus - Impetigo Sprain of other ligament of left ankle, sequela Pulmonary embolism M[facility] use of anticoagulant Sprain of left ankle, unspecified ligament, initial encounter Sprain Encounter for therapeutic drug level monitoring intermission coordinator (current) use of anticoagulants Personal history of [...] For Visit Copied on Encounter 0001 - [facility] [[email or web address]] Primary Encounter for EV GABRIEL. Green Clean, Dympol monitoring [address] Suboxone 0 [facility], [address], therapyMigrain tel:[phone] [place] rosey without aura [address] [place] [address], and without [address], [place] status tel:60 migrainosus, [phone] not intractable 0001 - [facility] [[email or web address]] Primary EV GABRIEL. Green Clean, Dympol 6- [address] [place] [address] City 9 [facility], [address]. [address], tel:[phone] [place] [address] [place] [address], [address], [place] tel:[phone] 0001 - [facility] [[email or web address]] Primary Encounter for EV GABRIEL. Green Clean, Dympol monitoring [address] Suboxone 9 [facility], [address], therapyOther tel:[phone] [place] [facility] [address] [place] [address], (current) drug [address], [place] therapyGeneral tel:+60 ized anxiety [phone] disorder 0001 - [facility] [[email or web address]] Primary Nov-2 DOSHI HARVEY. [facility], Care Robel 0-[address], [address] 9 [facility], [address]. Street, tel:[phone] [address], [address], [place] tel:[phone] 0001 - S Primary Encounter for Oct-3 DOSHI HARVEY. [facility] [[email or web address]] Inc, Care [place] monitoring 1-201 [address] , [address] [place] [address] Suboxone 9 [facility], [address], therapyOpioid tel:[phone] [place] dependence, [address] [place] [address], uncomplicated [address], [place] tel:[phone] 0001 - S Primary Oct-2 DOSHI HARVEY. [facility], Care [place] 9-201 [address] , [address] [place] [address] 9 [facility], [address]. [address], tel:[phone] [place] [address] [place] [address], [address], [place] tel:[phone] 0001 - [facility] [[email or web address]] Primary Migraine Oct-2 DOSHI HARVEY. [facility], Care [place] without aura 4-201 [address] , [address] [place] [address] and without 9 [facility], [address], migrainosus, tel:[phone] [place] not [address] [place] [address], intractable [address], [place] tel:[phone] 0001 - S Primary Encounter for Oct-0 DOSHI HARVEY. [facility] [[email or web address]] Inc, Care [place] monitoring 3-201 [address] , [address] [place] [address] Suboxone 9 [facility], [address], therapyOpioid tel:[phone] [place] dependence, [address] [place] [address], uncomplicatedE [address], [place] ncounter for tel:60 screening for [phone] other disorder 0001 - S Primary Encounter for Aug-2 DOSHI HARVEY. [facility] [[email or web address]] Inc, Care [place] monitoring 7-201 [address] , [address] [place] [address] Suboxone 9 [place], [place], [address]. Street, therapyOpioid tel:[phone] [place] dependence, 6075 [place], uncomplicated [address], [place] tel:[phone] 0001 - S Primary Encounter for Mar-3 DOSHI HARVEY. S Inc, Care [place] monitoring 1-[address] Suboxone 9 [facility] [place], [address]. Street, therapyOpioid tel:[phone] [place] dependence, [address] [place] [address], uncomplicated [address], [place] tel:[phone] 0001 - S Primary History of Mar- DOSHI HARVEY. S Inc, Care [place] migraineOpioid 6- [address] dependence in 9 [facility] [place], [address]. Street, hyroidism, tel:[phone] [place] unspecified 6075 [place], [place], typePE [address], [place] (pulmonary tel:+60 thromboembolis [phone] m)Opioid dependence, uncomplicated 0001 - S Primary Migraine with Yosef-0 MILLET MACIE. [facility] [[email or web address]] Inc, Care [place] aura and with [address] status 9 [facility], Kimberly migrainosus, `, [place], [place], [address]. [place] intractable tel:[phone] [place], [place], [address], [place] tel:[phone] 0001 - [facility] [[email or web address]] Primary Migraine with May-0 ANDREZ STEPHANIE. [facility] [[email or web address]] Inc, Care [place] aura and with [address] status 9 [facility], Berto migrainosus, [facility], [place], [address]. [place] intractable tel:[phone] [place], 60[address], [place] tel:[phone] 0001 - S Primary Encounter for Apr-2 ANDREZ STEPHANIE. [facility] [[email or web address]] Inc, Care [place] wellness 5-[address] examinationMig 9 [facility], [place] luisana with [facility], [place], [address]. [place] status tel:[phone] [place], [place], migrainosus, 6075 [address], [place] not tel:[phone] intractable [phone] 0001 - S Primary Intractable Nov- ANDREZ STEPHANIE. [facility] [[email or web address]] Inc, Care [place] migraine with 9-[address] aura with 9 [facility], Berto status [facility], [place], [address]. [place] erately severe tel:[phone] [place], [place], depression 6075 [address], [place] tel: [phone] 0001 - [facility] [[email or web address]] Primary Migraine with ANDREZ STEPHANIE. [facility] [[email or web address]] Inc, Care [place] aura and with 4-[address] status 9 [facility], [place] migrainosus, [place], [address]. [place] intractable tel:[phone] [place], [place], 60[address], [place] tel: [phone] 0001 - [facility] [[email or web address]] Primary Chest pain, Dec-0 ANDREZ STEPHANIE. [facility] [[email or web address]] Inc, Edis Marti unspecified 3-[address] [place] [address] typeIntractabl 8 [facility], B[place] e migraine [facility], [place], [address]. [place] status tel:[phone] [place], [place], migrainosus 6075 [address], [place] tel: [phone] 0001 - S Primary Intractable Jul- ANDREZ STEPHANIE. [facility] [[email or web address]] Inc, Edis Marti migraine with 9-[address] aura without 8 [facility], B[place] status [facility], [place], [address]. [place] bid tel:[phone] [place], obesityBody 6075 [address], [place] mass index tel:60 (BMI) 50-59.9 [id number] , adult 0001 - S Primary Abdominal wall Nov- ANDREZ STEPHANIE. [facility] [[email or web address]] Inc, Care [place] pain in 6-[address] [place] [address] periumbilical 8 [facility], Berto regionMigraine [facility], [place], [address]. [place] with status tel:[phone] [place], [place], migrainosus, 6075 [address], [place] not tel: intractable [phone] 0001 - S Primary Neuropathic Jun- ANDREZ STEPHANIE. [facility], Edis Marti painIntractabl 507 [facility], [address] [place] [address] e migraine 8 [facility] with aura with [facility], [place], [address]. [place] migrainosus tel:[phone] [place], [place], 60[address], [place] tel:+ [phone] 0001 - [facility] [[email or web address]] Primary Intractable Jun- ANDREZ STEPHANIE. [facility], Edis Marti migraine with [address] aura with 8 [facility], [place]erto status [facility], [place], [address]. [place] tel:[phone] [place], [place], 60[address], [place] tel: [phone] 0001 - [facility] [[email or web address]] Walk-In Acute right Sep- WINTERSTEIN [facility], Center otitis 8-201 CHRISTOPHER. 33-57 Nash mediaAcute 8 91 Nash Kimberly [facility], [facility], Street, [place], [address]. [facility], [place], al history of tel:[phone], [place] nicotine 4151 tel: dependence [phone] 0001 - [facility] [[email or web address]] Primary Intractable Apr- ANDREZKAREN RAINEYAH. [facility], Edis Marti migraine with [address] aura without 8 SP, [place] status [facility], [place], [address]. [place] bid tel:[phone] [place], obesityNeuropa 6075 [address], [place] thyWhiplash tel: injury to [phone] neck, subsequent encounterBMI pediatric, 85% to less than 95th percentile for ageSprain of ligaments of cervical spine, initial encounterPerso n injured in unsp motor-vehicle accident, traffic, initBody mass index (BMI) 50-59.9 , adult 0001 - [facility] [[email or web address]] Primary Migraine aura, Apr- ANDREZKAREN RAINEYAH. [facility] [[email or web address]] Inc, Edis Marti persistent, 9 [address] , [address] [place] [address] intractable 8 [facility], [place], [place], [address]. [place] tel:[phone] [place], [place], 60[address], [place] tel:+ [phone] 0001 - S Primary Intractable ANDREZ BROWN. S Inc, Care [place] migraine with 4-201 [address] , 33-57 [facility] aura without 8 [facility], Berto status [address], [place], [address]. [place] erate episode tel:[phone] [place], [place], of recurrent 6075 [address], [place] major tel:+60 depressive [phone] disorderNeurop athyMorbid obesityBody mass index (BMI) 50-59.9 , adult 0001 - [facility] Primary Intractable Mar- ANDREZ BROWN. S Inc, Care [place] migraine with 8-201 [address] , [address] [place] [address] aura without 8 [facility], B[place] status [place], [place], [address]. [place] acco tel:[phone] [place], [place], dependenceBipo 6075 [address], [place] lar 2 disorder tel:[phone] - S Primary Major Feb- BARBOUR S Inc, Care depressive 6-201 RANDI. 4417 33-57 [place] disorder, 8 Mark [place] recurrent, [facility], Street, moderateMorbid [place], [place], [place] (severe) [address]. [place], [place], obesity due to tel:[phone], [place] excess 7365 tel:60 calories [phone] 0001 - S Primary Migraine, ROOT COCO. S Inc, Care [place] unspecified, 1- [address] , [facility] City not 8 [place], [place], [address]. Street, without status tel:[phone] [place] migrainosus 6075 [place], [address], [place] tel:60 [phone] 0001 - S Primary Migraine, ROOT COCO. S Inc, Care [place] unspecified, 4-[address], 3357 City not 8 [facility] [place], [address]. Street, without status tel:[phone] [place] migrainosus 6075 [place], [address], [place] tel:60 [phone] 0001 - S Primary Intractable Apr-2 ROOT COCO. [facility], Edis Marti migraine with 5-201 [address] [facility] aura with 8 [place], [address]. Street, migrainosusAne tel:+63 [place] mary jo, 6075 [place], unspecified [address], [place] typeHypothyroi tel: dism, [phone] unspecified typeElevated glucose level 0001 - [facility] [[email or web address]] Primary Chronic Apr-0 [facility] STEPHANIE. [facility], Care [place] midline low 4-[address] back pain with 8 SP, Berto left-sided [place], [place], [place], [address]. [place] chronic tel:[phone] [place], [place], painClass 3 6075 [address], [place] obesity tel: without [phone] serious comorbidity with body mass index (BMI) of 50.0 to 59.9 in adult, unspecified obesity typeBody mass index (bmi) 50-59.9 , adult 0001 - [facility] Body mass Mar-2 [facility], Management index (BMI) - LUDY. 52 -57 50-59.9 , [address], [address], spondylosisSpo 2, [place] Marti ndylolysis, [place], [place], [facility], [place], site [address]. [address], [place] unspecifiedDor tel:[phone] tel:+ salgia, [phone] unspecifiedObe sity, unspecified 0001 - [facility] [[email or web address]] Primary Hospital Mar-1 ANDREZ BROWN. [facility], Care [place] discharge 4-201 507 [facility] [address] [place] [address] follow-upMigra 8 SP, Berto ine without iFgueroa Walsh, [place], [address]. [place] without status tel:[phone] [place], [place], migrainosus, 6075 [address], [place] not tel:60 intractableUns [phone] pecified asthma, uncomplicatedP neumonia, unspecified organismPerson al history of nicotine dependence 0001 - [facility] [[email or web address]] Walk-In Acute Sep- OFELIA PRASAD. [facility], Center pharyngitis, [facility] 91 33-57 Nash unspecified 8 Nash [place] [address], Street, [place], [facility], [address]. [place], [place], tel:[phone], [place] 4151 tel:+ [phone] 0001 - [facility] [[email or web address]] Primary Intractable Huy- ANDREZ BROWN. [facility], Care [place] migraine with 1-[address], 33-57 [facility] aura without 8 [facility], [place] status [place], [place], [place], [address]. [place] pital tel:[phone] [place], [place], discharge 6075 [address], [place] follow-up tel:+ [phone] 0001 - [facility] [[email or web address]] Primary Acute Aug- ROOT COCO. [facility], Care [place] left-sided low 8-[address], 33-57 [facility] back pain 7 [place], [place], [address]. Street, sciatica tel:[phone] Lexa 6075 [place], [address], [place] tel: [phone] 0001 - [facility] [[email or web address]] Walk-In Viral upper Aug-0 BERG CRISTOFER. [facility], Center respiratory 7-201 [address] 33-[address], [facility] infectionOther [place], [place], Street, viral agents [address], [place]. [place] as the cause tel:[phone] [place], [place], of diseases 9816 [address], [place] classified tel: elsewherePerso [phone] nal history of nicotine dependence 0001 - [facility] Bilateral low Nov-2 MUKESH [facility], Management back pain with 1-201 BELLA. 52 33-57 sciatica, 7 [facility] sciatica Street, Street, later[place], [address]. [place], [place], anticoagulant tel:[phone], [place] therapyBody 5898 tel:60 mass index [id number] (BMI) 45.0-49.9, adult 0001 - [facility] [[email or web address]] Walk-In DysuriaUrinary Nov-1 WINTERSTEIN S Inc, Center tract 9-201 CHRISTOPHER. 33-57 Nash infection, 7 [address] [facility] site not [address], Street, specified [facility], [address]. [place], [place], tel:[phone], [place] 4151 tel:+[phone] 0001 - [facility] [[email or web address]] Ortho Acute pain of Nov-0 LOWRIE CASEY. S Inc, Ctr Ortho left - S 4433 33-[address] kneePatellofem [address] [place] oral pain E, [place], [place], [place], [address]. [place] left knee tel:[phone] [place], [place], 2220 [address], [place] tel:+[phone] 0001 - [facility] [[email or web address]] Ortho Pain in Nov-0 LOWRIE CASEY. S Inc, Ctr Ortho unspecified S 4433 33-[address] [place] E, [place], [place], [address]. [place] tel:[phone] [place], [place], 2220 [address], [place] tel:+60 [phone] 0001 - [facility] WS Preop Jul-0 SHUKRI [facility], Cardiology cardiovascular MYRIAM. 30 57 examPSVT 7 Berto Thomson (paroxysmal Street, [address], supraventricul 250, [place] ar [place], [place], tachycardia) [address]. [address], [place] tel:[phone] tel:[phone] 0001 - [facility] [[email or web address]] Primary Major Oct-3 ROOT COCO. [facility] [[email or web address]] Inc, Care [place] depressive 1-[address], 33-57 City disorder, 7 [place], [facility], [address]. Street, episode, tel:[phone] [place] unspecifiedCos 6075 [place], [place], tochondritis [address], [place] tel:[phone] 0001 - [facility] [[email or web address]] Mark Medication Oct-2 NIELS [facility] [[email or web address]] Inc, IM Primary managementChro 6-201 YA MANUJA. 57 Care julianne left-sided 7 4417 Mark [place] low back pain [place], [place], with Internal Lexa left-sided Medicine, [place], [place], [place], [address], [place] chronic [address]. tel:+60 painAcute pain tel:[phone] of left knee 7365 0001 - [facility] [[email or web address]] Mark Chronic Sep-2 WARNAKULASURI [facility] [[email or web address]] Inc, IM Primary GERDBenign 1-201 YA MANUJA. Care atrial 7 4417 [address] Kimberly arrhythmiaOthe [facility], Street, r pulmonary Internal Lexa embolism Medicine, [place], [place], [place], [address], [place] cor pulmonale, [address]. tel:+60 unspecified tel:[phone] chronicityHypo 7365 thyroidism (acquired)Pers onal history of nicotine dependence 0001 - [facility] [[email or web address]] Walk-In Acute Sep- BUFFUM S [facility], Center suprapubic 0-201 ISIS. 4417 -57 Nash painExcessive 7 Mark [facility] vaginal [facility], Street, bleeding [place], [place], [place] [address]. [place], [place], tel:[phone], [place] 2144 tel:+[phone] 0001 - [facility] [[email or web address]] Primary Seborrheic Apr- ROOT COCO. [facility], [facility] Fig[place] dermatitisMigr 5 507 [facility], 57 [facility] facundo, 7 [facility] [place], [address]. Street, not tel:[phone] [place] intractable, [address] [place] [address], without status [address], [place] migrainosusObe tel:+60 sity, [phone] unspecified obesity severity, unspecified obesity typeBody mass index (BMI) 45.0-49.9, adult 0001 - [facility] [[email or web address]] Walk-In Hypotension, BORJAS SHANNAN. [facility], Center unspecified 4417 Mark -57 Nash 7 [facility], [facility], [place], Street, [address]. [place] tel:[phone] [place], [place], 2[address], [place] tel:[phone] 0001 - [facility] [[email or web address]] Primary Obesity, ROOT COCO. [facility] [[email or web address]] Inc, Care [place] unspecified 201 [address] , 33-57 City obesity 7 [facility] [place], [address]. Street, unspecified tel:[phone] [place] obesity 6075 [place], [place], typeChest [address], [place] pain, tel:+60 unspecified [phone] typeMigraine, unspecified, not intractable, without status migrainosus 0001 - S Walk-In Skin infection Nov- CLEM HORN. S Inc, Center 4417 [place] 33-57 Nash 7 [facility], [place], [place], [place], [address]. Lexa tel:[phone] [place], [place], 2[address], [place] tel:[phone] 0001 - S Primary Neurotic Nov-0 KAREN S Inc, Care Lexa excoriationsPo LUDY. 507 33-57 [facility] lyarthralgia 7 [facility], [facility], [place], [facility], [address]. [place], tel:[phone], [place] 6075 tel:[phone] 0001 - S Walk-In De Quervain's DC S Inc, Center tenosynovitis, NAYELI. 91 33-57 Nash rightViral URI 7 [facility] with cough Bridge , [place], [facility], [place], [address]. [address], [place] tel:[phone] tel:[phone] 0001 - [facility] [[email or web address]] Ortho De Quervain's CATARINA S Inc, Ctr Ortho tenosynovitis, 0 IRENA. [facility] [[email or web address]] -57 right 7 [address] [facility] [address], [place], [place], [place] [address]. [place], [place], tel:[phone], [place] 2220 tel:[phone] 0001 - S Primary Wrist pain, JORGE S Inc, Care Lexa right UPASANA. 4417 33-57 [facility] 7 [facility], [facility] [address]. [place], tel:[phone], [place] 7365 tel:[phone] 0001 - S Walk-In Croup, KONEFAL S Inc, Center spasmodicAcute KACZYNSKI 33-57 Nash pharyngitis, 6 EDU. [address]ob [address], Street, acco use [place], [place] [address]. [place], tel:[phone], [place] 7171 tel:[phone] 0001 - S Primary Acute pain of Oct-2 ZAHEER HERNANDEZ. S Inc, Care [place] left 4-[address], [address] [place] [address] shoulderAcute 6 SP, Kimberly left-sided [place], [place], [place], [address]. Lexa painArm tel:[phone] [place], [place], paresthesia, 6075 [address], [place] leftLow back tel:[phone] painCervicalgi [id number] a 0001 - S Primary Moderate Oct-1 KAREN S Inc, Care [place] episode of 3-201 LUDY. [address] [place] [address], [facility], Street, depressive [place], [place], [address]. [place], tel:[phone], [place] 6075 tel:[phone] 0001 - S Primary Moderate Sep-2 KAREN S Inc, Care [place] episode of 9201 LUDY. [address] [place] [address] recurrent 6 [facility], [facility], Street, depressive [place], [place], [address]. [place], tel:[phone], [place] 6075 tel:[phone] 0001 - S Primary Tenderness of Sep-1 KEN AHMED. S Inc, Care [place] chest wall 9-[address], [address] [place] [address], [facility], [place], [address]. [place] tel:[phone] [place], [place], 60[address], [place] tel:[phone] 0001 - S Primary GERD with Aug-0 KAREN S Inc, Care [place] esophagitis 8-201 LUDY. 507 33-57 [facility] [address], [facility], Street, [place], [place], [address]. [place], tel:[phone], [place] 6075 tel:[phone] 0001 - [facility] Primary Gastro-esophag Apr- EKHLAS [employer] Inc, Care [place] eal reflux HOSSAIN. 50 [facility] disease 6 [facility], Kimberly without SP, Street, esophagitisSpr [place], [address]. [place], ankle, tel:[phone], [place] unspecified 6075 tel:+60 ligament, [phone] subsequent encounter 0001 - [email or web address]] Primary Sprain of left [employer] Inc, Care [place] ankle, LUDY. 507 [facility] unspecified [address] , Kimberly ligament, SPC, Street, subsequent [place], [address]. [place], ity, walking, tel:[phone], [place] marching and 6075 tel:[phone] 0001 - [email or web address]] Primary Weight loss Mar- [employer] Inc, Care [place] counseling, LUDY. 507 [facility] encounter 6 [facility] forObesity, SPC, Street, [place], [address]. [place], severity, tel:[phone], [place] unspecified 6075 tel:+60 obesity [phone] typeSevere episode of recurrent major depressive disorder, without psychotic featuresSprain of other ligament of left ankle, subsequent encounterSprai n of other ligament of left ankle, initial encounterBody mass index (BMI) 50-59.9 , adult 0001 - [email or web address]] Pain in right Shayne- [employer], Orthopedics kneePerson [place] consulting for 6 Kimberly explanation [address], exam or test [place] findings [facility] [place], [address], [place] tel:[phone] 0001 - [email or web address]] Primary Right knee Feb- [employer] Inc, Care [place] injury, LUDY. 507 [facility] subsequent 6 [facility] encounterPatel SPC, Street, lofemoral [place], [address]. [place], both tel:[phone], [place] kneesUnspecifi 6075 tel:+160 ed injury of [id number] right lower leg, initial encounterPatel lofemoral disorders, left knee 0001 - [email or web address]] Pain in right [facility], Orthopedics knee 0-57 [place] 6 [facility], [place], [address], [place] tel:[phone] 0001 - S Primary Arthritis of Shayne- EKHLAS [facility], Care [place] knee, right HOSSAIN. 507 33-57 [address], [address], [facility], [address]. [place], tel:[phone], [place] 6075 tel:[phone] 0001 - Critical access hospital Encounter for JUNLD S [facility], [facility] therapeutic 5-201 WESTLEY. 4417 33-57 Coumadin drug level 6 [facility] monitoringLong [facility], term (current) [facility] [place] [address]. [place], anticoagulants tel:[phone], [place] Personal 8833 tel:+60 history of [id number] other venous thrombosis and embolismEncoun ter for therapeutic drug monitoringLong -term Use of Anticoagulants Pulmonary Embolus 0001 - [email or web address]] Primary Unspecified Dec- VAZQUEZ GLENN. [facility] [[email or web address]] Inc, Care [place] asthma with 8 3101 Shippers 33-57 [facility] (acute) 6 [facility], [facility] exacerbation 203, [facility], [place], [address]. [place] tel:[phone] [place], [address], [place] tel:[phone] 0001 - S Walk-In Bronchitis Apr-0 SIRISHA HO. 4417 [facility], Center with Mark 33-57 Mark bronchospasmTo 6 [facility] bacco use [facility], [address]. [place] tel:[phone] [place], [place], [address], [place] tel:[phone] 0001 - S Walk-In CroupTobacco Apr-0 WALKER S Inc, Center use 4 LYNNETTE. 1302 33-57 Nash 6 [facility], [place], [place], Street, [address]. [place] tel:[phone] [place], [address], [place] tel:[phone] 0001 - S Walk-In Right foot Mar-2 CRISTY WHITNEY. S Inc, Center painActivity, 4433 Mark 33-57 Nash other 6 [place], [facility] specified Rheumatology, Street, [place], [place] [address]. [place], tel:[phone], [place] 2879 tel:[phone] 0001 - S Avulsion Mar-2 [facility] Inc, Orthopedics fracture of 3-201 CASEY. [facility] [[email or web address]] 33-57 [place] ankle, left, 6 4433 Mark Berto closed, Pkwy [address], Street, initial [place], [place] encounterOth [address]. [place], fracture of tel:[phone], [place] upper and 2220 tel:+[phone] lower end of [id number] left fibula, init 0001 - S Pain in Mar-2 [facility], Orthopedics unspecified 2-201 CASEY. [email or web address]] 33-57 [place] ankle and 6 4433 Mark Berto joints of [address], Street, unspecified [place], [place], [place] foot [address]. [place], tel:[phone], [place] 2220 tel:[phone] 0001 - S Primary Avulsion Mar-1 AMBARSAIN S Inc, Care [place] fracture of [facility] 33-57 [facility] distal end of 6 33-57 Berto fibula [facility] Street, EW3, [place], [place], [facility] [place], [address]. [address], [place] tel:[phone] tel:[phone] 0001 - S Sleep Sleep apnea, Mar-1 BHARATHI S Inc, Center obstructiveAnx 7- GERMAN. 93 33-57 iety disorder, 6 [facility] [address], [facility] [[email or web address]], Street, y mass [place], [address]. [place], [place], 45.0-49.9, tel:[phone], [place] adultOther 2047 tel:+60 dorsalgiaGastr [id number] o-esophageal reflux disease without esophagitisSno ring 0001 - [email or web address]] Primary Intractable Mar-0 KAREN S Inc, Care [place] migraine, 9-201 LUDY. 507 33-57 [facility] unspecified [address], Kimberly migraine SPC, Street, typeObstructiv [place], [address]. [place], [place], tel:[phone], [place] 6075 tel:[phone] 0001 - S [place] Encounter for Feb-2 [facility], [facility] therapeutic 2 33-57 Coumadin drug level 6 [facility]LoBar[facility] [place], term use of [place] anticoagulantP [place], ersonal [address], [place] history of tel:+[id number] for therapeutic drug monitoringLong -term Use of Anticoagulants Pulmonary Embolus 0001 - [email or web address]] Primary ImpetigoSprain b-1 CASEY [facility], Care [place] of other 7201 CHRISTOPHER. 57 [facility] ligament of [address], [place] left ankle, Communicable Street, sequelaPulmona Diseases, [facility], [place], [place], [place], [address]. [address], [place] term use of tel:[phone] tel:[phone] anticoagulant [phone] 0001 - [email or web address]] Sprain of left Feb-1 LOWRIE CASEY. [facility], Orthopedics ankle, 0-201 [email or web address]] 4433 33-57 [place] unspecified [address] Berto ligament, E, [place], [place], [address]. [place] encounter tel:[phone] [place], 2220 [address], [place] tel:[phone] 0001 - S Primary Sprain Feb-0 NI ANIRUDH. [facility] [[email or web address]] Inc, Care [place] 2-201 4417 Mark 33-57 [facility] 6 [place], [facility], [place], Street, [address]. [place] tel:[phone] [place], [address], [place] tel:[phone] 0001 - S [place] Encounter for Feb-0 [employer], City therapeutic 33-57 Coumadin drug level 6 [facility] monitoring[address], term (current) [place] use of [place], anticoagulants [address], [place] Personal tel:+60 history of [id number] pulmonary embolismEncoun ter for therapeutic drug monitoringLong -term Use of Anticoagulants Pulmonary Embolus 0001 - S Primary Left ankle NI ANIRUDH. S Inc, Care [place] strain, 4417 Mark 33-57 City subsequent 6 [facility] encounterStrai [place], [place], Street, n of [facility] [address]. [place] msl/tnd at tel:[phone] [place], [place], ank/ft level, 7365 [address], [place] left foot, tel:[phone] init [phone] 0001 - S Walk-In URI, OFELIA PRASAD. [employer], Center acuteTobacco [facility] 91 33-57 [place] use 6 [facility] [address] [address], Street, [facility], [address]. [place], tel:[phone], [place] 4151 tel:[phone] 0001 - S Mark Stress Sakti3, Gynecology incontinence NATHAN. 4417 33-57 (female) 6 Mark Berto (male)Encounte [facility], r for other [place], [place], [place] specified [address]. [place], [place], surgical tel:[phone], [place] aftercare 4496 tel:[phone] 0001 - S Mark Family Sakti3, Gynecology planningStress NATHAN. 4417 33-57 incontinence 6 Mark Berto (female) [facility], (male)Other [place], [place], [place] acute [address]. [place], postprocedural tel:[phone], [place] painBody mass 4496 tel:+160 index (BMI) [id number] 50-59.9 , adult 0001 - S Mark Post-op BORDENET [employer] Inc, Gynecology painBody mass 8-201 LOREN. 52 3357 index (BMI) 6 Berto [place] 45.0-49.9, Street, Street, adult [facility], [address]. [place], tel:[phone], [place] 5895 tel:[phone] 0001 - [facility] Primary Saddle embolus Huy-0 KAREN S Inc, Care [place] of pulmonary 6-201 LUDY. 507 33-57 City artery w/o [address], Berto acute cor SPC, Street, pulmonale [facility], [address]. [place], tel:[phone], [place] 6075 tel:[phone] 0001 - [facility] Mark Pyuria Dec-3 NAYAN [employer], Gynecology 1- KAUSHAL. 4417 3357 [address] [place], [place], [place] [address]. [place], tel:[phone], [place] 4496 tel:[phone] 0001 - [facility] Mark Urinary tract Dec-3 Capee groupS Inc, Gynecology infection, NATHAN. 4417 3357 site not 5 [place], [place] [address]. [place], tel:[phone], [place] 4496 tel:[phone] 0001 - [facility] Mark Pre-procedure Dec-2 Capee groupS Inc, Gynecology lab exam NATHAN. 4417 33-57 [address] [place], [place], [place] [address]. [place], tel:[phone], [place] 4496 tel:[phone] 0001 - S Walk-In Blunt trauma, Nov- [facility] Thw[employer]S Inc, Center left eye, CHRISTOPHER. 57 Nash initial 5 91 [facility], Street, ing against [place], [address]. [place], other objects, tel:[phone], [place] init encntr 4151 tel:[phone] 0001 - S Mark Urinary tract Nov-2 SHUMEYKO S Inc, Gynecology infection, 3-201 NATHAN. 4417 33-57 site not 5 Mark Berto specified [facility], [place], [place], [place] [address]. [place], [place], tel:[phone], [place] 4496 tel:[phone] 0001 - S Mark Family Nov-1 SHUMEYKO S Inc, Gynecology planningStress 2-201 NATHAN. 4417 33-57 incontinence 5 Mark Berto (female) [facility], (male)[place], [place] [address]. [place], pulmonary tel:[phone], [place] embolismUrinar 4496 tel:+1-60 y tract [id number] infection, site not specifiedEncou nter for other preprocedural examination 0001 - [facility] [[email or web address]] Primary Pre-operative Nov-1 KAREN S Inc, Care [place] clearanceAcute 2-201 LUDY. 507 33-57 City saddle 5 [address] , Kimberly pulmonary SPC, Street, embolism [facility] [place], [address]. [place], cor tel:[phone], [place] pulmonaleEncou 6075 tel:+[phone] nter for [id number] immunizationEn counter for sterilizationS tress incontinence (female) (male)Other pulmonary embolism without acute cor pulmonale 0001 - [facility] [[email or web address]] Primary Bilateral low Nov-0 DEMAINE MARY. [facility] [[email or web address]] Inc, [facility], Later [facility] back pain with 2-[address], 33-57 City sciatica, 5 SPC, Berto sciatica [place], [place], [place], [address]. [place] unspecifiedSac tel:[phone] [place], rococcygeal 6075 [address], [place] pain tel:[phone] 0001 - [facility] [[email or web address]] Walk-In Bilateral low Oct-2 INDIO CAMPBELL. S Inc, Center back pain with 5-201 4417 Mark 33-57 Nash sciatica, 5 [facility], [place] Bridge sciatica [place], [place], Street, laterality [address]. [place] unspecified tel:[phone] [place], [place], [address], [place] tel:[phone] 0001 - S Mark Encounter for SHUMEYKO [employer] Inc, Gynecology sterilizationS 5 NATHAN. 4417 33-57 tress 5 Mark Berto incontinence [facility], (female) [place], [place], [place] (male)Other [address]. [place], pulmonary tel:[phone], [place] embolism 4496 tel:+1-60 without acute [phone] cor pulmonale 0001 - S Walk-In Chronic back Sep-2 WALKER S Inc, Center pain 6-201 LYNNETTE. 1302 33-57 Nash [address] [place], [place], [place], [address]. [place] tel:[phone] [place], 2[address], [place] tel:[phone] 0001 - S Primary DepressionAlle Sep-1 KAREN [facility] Inc, Care [place] rgyHerpetic - LUDY. [facility] 33-57 [facility] whitlowEncount 5 Main , Kimberly er for smoking [facility], [place], cessation [place] counselingPulUniversity of Mississippi Medical Center, [address]. [place], onary embolism tel:[phone], [place] 6075 tel:[phone] 0001 - S Mark Stress Sep-0 NAYAN [facility] Inc, Gynecology incontinenceAb 9 KAUSHAL. 9797 33-57 normal 5 Mark Berto PapVulvar [facility], lesion [place], [place] [address]. [place], tel:[phone], [place] 4496 tel:[phone] 0001 - S Mark Routine Aug-3 One Inc.S [employer], Gynecology Gynecological 1-201 KAUSHAL. 4417 33-57 ExamPersonal 5 Mark Berto history of [facility], pulmonary [place], [place] embolismStress [address]. [place], incontinenceCo tel:[phone], [place] ntraception 4496 tel:[phone] 0001 - S Primary Melanocytic Aug-2 KAREN [facility] Inc, Care [place] nevus 4-201 LUDY. 507 33-[address], Street, [facility], [address]. [place], tel:[phone], [place] 6075 tel:[phone] 0001 - [email or web address]] Primary Migraine Aug- STRDILSHAD S Inc, Care [place] 4-201 ALEXIA. [facility] 33-[address], Street, [facility], [address]. [place], tel:[phone], [place] 6075 tel:[phone] 0001 - S Primary Atypical Aug- KONEFAL S Inc, Care [place] nevusNeop, 0 KACZYNSKI 3357 [facility] bng, skin, arm 5 EDU. 1302 E [facility], [place], [facility] [address]. [place], tel:[phone], [place] 7171 tel:[phone] 0001 - [email or web address]] Primary Migraine Apr-0 CALDERON MILTON. [facility], Care [place] 6 [address], [place], [place], Street, [address]. [place] tel:[phone] [place], [place], 2220 [address], [place] tel:[phone] 0001 - [email or web address]] Walk-In Pharyngitis, Feb- SIRISHA HO. 4417 [facility], Center acuteStrep 9- Mark 33-57 Nash pharyngitis 5 [facility], [place], [place], Street, [address]. [place] tel:[phone] [place], [place], 2[address], [place] tel:[phone] 0001 - [email or web address]] Walk-In URI Shayne- GILBERT OSMAR. [facility], Center 8-201 SWIC 91 33-57 Nash 5 [place] [facility], Street, [facility], [address]. [place], tel:[phone], [place] 4151 tel:[phone] 0001 - [email or web address]] Walk-In Gastroenteriti ZARRINI [facility] Inc, Center sBack pain 1- JEREMY. 1302 33-57 Nash [address] , [facility], [place], [place], [place], [place] [address]. [place], tel:[phone], [place] 7171 tel:[phone] 0001 - S Walk-In Lumbar Apr-1 TOKOS MANUEL. [facility], Center strainCumulati 1302 E [facility] 33-57 Nash ve Trauma From 5 St, [facility], [place], [place], Street, Motion [address]. [place] tel:[phone] [place], [place], [address], [place] tel:[phone] 0001 - [email or web address]] Primary Back pain Apr-1 YUMIKO ROSE. [facility], [facility], Later [facility] 0 4433 [place] 3357 [facility] [address], [place], [place], Street, [address]. [place] tel:[phone] [place], [place], 2220 [address], [place] tel:[phone] 0001 - S Walk-In Cough b- GILBERT OSMAR. [facility] [[email or web address]] Inc, Center 3-201 [facility] 91 33-57 Nash 5 [facility], [facility], [address]. [place], tel:[phone], [place] 4151 tel:[phone] 0001 - S Walk-In URI, acute Feb- DC [facility], [place] 1-201 NAYELI. 91 33-57 Nash 5 Nash [facility], [facility], [place], [address]. [address], [place] tel:[phone] tel:[phone] 0001 - S Walk-In Cough b-1 CONSOLAZIO [facility] [[email or web address]] Inc, Center 0-201 MARJAN. 4417 33-57 Mark 5 [facility], [place], [place], [place] [address]. [place], tel:[phone], [place] 2144 tel:[phone] 0001 - [email or web address]] Walk-In Sciatica OFELIA PRASAD. [facility], Center 0-201 [facility] 91 33-57 Nash [address], Street, [facility], [address]. [place], tel:[phone], [place] 4151 tel:[phone] 0001 - [email or web address]] Primary ObesityBMI MAY DEANA. [facility], Care [place] 40.0-44.9, 6-201 [address] adultDietary 5 [address], Berto counseling in [facility], Street, obesity [facility], [address]. [place], tel:[phone], [place] 2660 tel:[phone] 0001 - [email or web address]] Primary Anxiety YUMIKO ROSE. [facility] [[email or web address] Referring [facility], Care [place] disorderTachyc 4433 Mark Provider: [address] [place] [address] [facility] [address] [place], [place], H, [email or web address]] Street, [address]. 4433 [place] tel:[phone] [place], [place], [address], [address], [place], tel:60 [place], [address]. 87529810 tel:[phone] 2047 - [email or web address]] Primary [facility] Referring [facility], Care [place] therapeutic COUMADIN Provider: [address] [place] [address] drug 4 CLINIC. 507 COUMADIN [facility] -term use of [facility], [facility], 507 [place] Formerly [facility], [place], [place], [place], [address]. [facility], [address], [place] history of tel:[phone] [place] tel:+ pulmonary [phone] [place], [place], [address] embolism [address]. tel:[phone] 0001 - [email or web address]] Primary Palpitations Dec- YUMIKO ROSE. [facility] Inc, Care [place] [address] [place] [address] [address] EBerto [place], [place], Street, [address]. [place] tel:[phone] [place], [place], 2220 [address], [place] tel:[phone] 0001 - [email or web address]] Walk-In Acute Nov-2 WINTERSTEIN [facility] [[email or web address]] Inc, Center conjunctivitis 2 CHRISTOPHER. Nash 4 91 [facility], Street, [facility], [address]. [place], tel:[phone], [place] 4151 tel:[phone] 2047 - S Primary Tachycardia Nov- YUMIKO ROSE. [email or web address]] Referring [facility] [[email or web address]] Inc, Care [place] 4433 Mark Provider: [address] [place] [address] [address], MILTON CALDERON [facility], [place], H, [email or web address]] Street, [address]. 4433 [place] tel:[phone] [place], [place], [address], [address], [place], tel:+60 [place], [address]. 40[address] tel:[phone] 2047 - Emergency Migraine Jun- YUMIKO ROSE. [facility], 4433 [place] [facility] [address], [place], [place], Street, [address]. [place] tel:[phone] [place], 2220 [address], [place] tel:[phone] 2047 - [email or web address]] Primary Encounter for Jun- [facility] Referring S Inc, Care [place] therapeutic COUMADIN Provider: [address] [place] [address] 4 [facility]. 507 COUMADIN [facility], -term use of [facility], [facility], 507 [place] anticoagulants [place], [place], [address]. [facility], [address], [place] embolism tel:[phone] [place] tel:+60 [phone] [place], [place], [address]. tel:[phone] 2047 - [email or web address]] Primary Migraine Oct-0 KONEFAL S Inc, Care [place] 3 TALHAI 57 [facility] 4 EDU. 1302 E [facility], [facility] [address]. [place], tel:[phone], [place] 7171 tel:[phone] 0001 - S Walk-In Pediculosis Sep-2 OFELIA PRASAD. [facility] [[email or web address]] Inc, Center 9-201 UHSWIC 91 33-57 Nash 4 [address], Street, [facility], [address]. [place], tel:[phone], [place] 4151 tel:[phone] 0001 - S Mark Encounter for Sep-2 LAKHANI [facility] [[email or web address]] Inc, Cardiology therapeutic 3-201 CATRACHO. 4417 33-57 drug 4 Mark [facility], -term use of [place], [facility] anticoagulants [address]. [place], Pulmonary tel:[phone], [place] embolism 8833 tel:[phone] 2047 - S Primary Encounter for Sep-2 [facility] Referring [facility], Care Figu[place]a therapeutic 2-201 COUMADIN Provider: [address] [place] [address] drug CLINIC. 507 [address] [facility], -term use of [facility], [facility], 507 [place] anticoagulants [place], [address]. [place], [address], [place] embolism tel:[phone] Figu[place]a tel: 6075 [place], [place], [address]. tel:[phone] 0001 - S Primary Back Sep-1 S Inc, Care [place] painObesityOpi 0-[address] ate addiction 4 [place], [address], [place] tel:[phone] 0001 - S Primary Encounter for Sep-0 [facility]CFCC S Inc, Care [place]a therapeutic 8-[address] drug 4 CLINIC. 507 [facility], -term use of [facility], [place] anticoagulants [place], [address]. [address], [place] history of tel:[phone] tel:[phone] pulmonary [phone] embolism 0001 - [facility] [[email or web address]] Primary Opiate Aug-2 S Inc, Care [place] addictionChron 7-[address] ic low back 4 [place], [address], [place] tel:[phone] 0001 - [facility] Primary Encounter for [facility] Inc, Care [place] therapeutic 5-201 COUMADIN 33-57 [facility] drug 4 CLINIC. 507 [facility], -term use of [facility], [place] anticoagulants [place], [address]. [address], [place] history of tel:[phone] tel: [phone] embolism 0001 - [facility] Primary Back pain YUMIKO ROSE. S [facility] Inc, Care [place] 9-201 [address] [place] [address] [address], [place], [place], Street, [address]. Figueroa tel:[phone] [place], [place], 2220 [address], [place] tel:[phone] 0001 - [facility] Primary Encounter for [facility] Inc, Care [place] therapeutic 8- COUMADIN [facility]57 [facility] drug CLINIC. 507 [facility], -term use of [facility], [place] anticoagulants [place], [address]. [address], [place] embolism tel:[phone] tel: [phone] 0001 - [facility] Primary [facility] Apr-0 [facility] Referring [facility] Inc, Care [place] therapeutic 5- COUMADIN Provider: [address] [place] [address] drug CLINIC. 507 [address] [facility], -term use of [facility], [facility], 507 [place] anticoagulants [place], [address]. [facility]SPC, [address], [place] embolism tel:[phone] Figueroa tel: 6075 [place], [place], [address]. tel:[phone] 0001 - [facility] Primary Encounter for [facility] Inc, Care [place]a therapeutic 8-201 COUMADIN 33-57 [facility] drug 4 CLINIC. 507 [facility] [place], -term use of [facility], [place] anticoagulants [place], [address]. [address], [place] embolism tel:[phone] tel:[phone] 0001 - [facility] Primary Back pain Mar- YUMIKO ROSE. S [facility] Inc, Care [place] 4-201 4433 [address] [facility] [address] [place], [place], Street, [address]. Figueroa tel:[phone] [place], [place], 2220 [address], [place] tel:[phone] 0001 - S Primary Encounter for [facility] Inc, Care Figu[place]a therapeutic 4-201 COUMADIN 33-57 [facility] drug 4 CLINIC. 507 [facility], -term use of [facility], [place] anticoagulants [place], [address]. [address], [place] embolism tel:[phone] tel:[phone] 0001 - S Primary Encounter for [facility] Inc, Care [place]a therapeutic 1-201 COUMADIN 33-57 [facility] drug CLINIC. 507 [facility], -term use of [facility], [place] anticoagulants [place], [address]. [address], [place] embolism tel:[phone] tel:[phone] 0001 - S Primary Pulmonary Mar- YUMIKO ROSE. S [facility] Inc, Care [place] embolism 7-[address], [place], [place], Street, [address]. Figueroa tel:[phone] [place], [place], 2220 [address], [place] tel:[phone] 0001 - S Primary Encounter for [facility] Inc, Care [place]a therapeutic 7-201 COUMADIN 33-57 [facility] drug 4 CLINIC. 507 [facility], -term use of [facility], [place] anticoagulants [place], [address]. [address], [place] embolism tel:[phone] tel:[phone] 0001 - S Primary Migraine Feb- [facility] Inc, Care [place] 8-201 33-57 [facility] 4 [facility], [place], [address], [place] tel:[phone] 0001 - S Primary Lumbago with YUMIKO ROSE. [facility] Inc, Care [place] sciatica 0-[address], [place], [place], Street, [address]. Figueroa tel:[phone] [place], [place], 2220 [address], [place] tel:[phone] 0001 - [facility] [[email or web address]] Primary Back pain May-1 YUMIKO ROSE. [facility] Inc, Care [place]a 3-201 [address] [place] [address] [address], [place], [place], Street, [address]. Figueroa tel:[phone] [place], [place], 2220 [address], [place] tel:[phone] 0001 - [facility] [[email or web address]] Primary Chronic low Apr-2 SABA GILLIAM. Referring [facility], Care Figueroa back painOther [address] [place] [address], Provider: [address] [place] [address] Chronic Pain 4 [facility] S[place], [address] [place] [address], [address]. [facility] tel:[phone] [place], [place], 6075 [place] [address], [place], [place], tel:[phone] tel:[phone] 0001 - [facility] [[email or web address]] Primary Back pain Apr-2 SULEMAN PATSY. [facility], Care Figu[place]a 3-201 OLL [address] [place] [address], Street, [address]. Figueroa tel:[phone] [place], [place], 2460 [address], [place] tel:[phone] 0001 - [facility] [[email or web address]] Primary Lumbar back Apr-2 YUMIKO ROSE. [facility] [[email or web address]] Referring [facility] [[email or web address]] Inc, Care Figu[place]a pain 3-201 4433 Mark Provider: [address] [place] [address] Pkw[address], MILTON CALDERON [place], [place], H, [email or web address]] Street, [address]. 4433 Figueroa tel:[phone] [place], [place], 22[address], [address], [facility], tel:+160 [place], [address]. [phone] tel:[phone] 0001 - [facility] [[email or web address]] Primary Left lumbar Apr-0 [facility] Inc, [facility] radiculitis 8- MASSIEL. [address] [place] [address], Street, [address]. Figueroa tel:[phone] [place], [place], [address], [place] tel:[phone] 0001 - [facility] [[email or web address]] Primary Abdominal Oct- [facility], [facility] PainBackache 5- MASSIEL. 800 33-57 3 [facility], [place], [place], Street, [address]. Figueroa tel:[phone] [place], [place], [address], [place] tel:[phone] 0001 - [facility] [[email or web address]] Walk-In SinusitisBronc Sep- Referring [facility], Center hitisBronchiti Provider: 33-57 Mark s, Acute 3 WALKIN [facility], Street, [address] [place], [place], Pkw[address], [address], [place], tel:[phone] [place], [phone]. [phone] 0001 - [facility] [[email or web address]] Primary Lumbago with [facility], [facility] sciatica 9 MASSIEL. 800 33-57 3 [facility], [place], [place], Street, [address]. Figueroa tel:[phone] [place], [place], [address], [place] tel:[phone] 0001 - [facility] [[email or web address]] Walk-In Otitis media Mar- Referring [facility], Center NOSOtitis Provider: 33-57 Mark media NOS 3 WALKIN [facility], Street, [address] [place], [place], Pkw[address], [address], [place], tel:[phone] [place], [phone]. [phone] 0001 - [email or web address]] Walk-In Upper [place] Referring [facility], Center Respiratory MARJAN. 4417 Provider: 33-57 Mark Infection, 3 Mark WALKIN [facility], [place], Street, [place], 4401 [place] [address]. [place], [place], tel:[phone] [address]kw[address], [address], [place] 2144 Mark, tel:[phone] [place], [address]. [phone] 0001 - [facility] [[email or web address]] Walk-In Back pain in January- TOLLIVER Referring S Inc, Center pregnancyCompl DIMPLE. Provider: 33-57 Nash ication oth 3 4417 Thomas WALKIN [place] spec preg, [place], [facility] Street, unspec [place], [place], [place]ID[place]. Figueroa episodeComplic [address]. [place], ation oth spec tel:[phone] [address], [place] preg, unspec 2144 tel:[phone] 0001 - S Primary Abdominal Apr-0 FOSTER [facility] Inc, Care [place] PainAbdominal 5-201 MALENA. 800 33-57 Pain 3 [facility], [place], [place], Street, [address]. Figueroa tel:[phone] [place], [place], [address], [place] tel:[phone] 0001 - [facility] Primary Abdominal Mar-1 SKIADAS [facility] Inc, Care [place] PainUpper 9-201 MASSIEL. 800 33-57 Respiratory 3 [place], [place], Street, AcuteAbdominal [address]. Figueroa PainUpper tel:[phone] [place], Respiratory [address], [place] Infection, tel:[phone] 0001 - [facility] Primary Abdominal Mar-1 SKIADAS [facility] Inc, Care [place] PainAbdominal 1-201 MASSIEL. 800 33-57 PainLumbago 3 [place], [place], Street, [address]. Figueroa tel:[phone] [place], [place], [address], [place] tel:[phone] 0001 - [facility] Primary LumbagoStrain Feb-1 SKIADAS Referring [facility] Inc, Care [place] of lumbar 3-201 MASSIEL. 800 Provider: 33-57 regionAbdomina 3 [facility], [place], [place], [facility], Street, PainLumbagoLum [address]. 800 [facility] bar Sprain Or tel:[phone] [facility], [place], [place], StrainAbdomina 0444 [place], [address], [place], [address]. tel:+60 tel:[phone] 0001 - [facility] Primary Abdominal Feb-0 SKIADAS Referring [facility] Inc, Care [place] PainAbdominal 5-201 MASSIEL. 800 Provider: 33-57 Pain 3 Shannan Johnston, MASSIEL [place], [place], [facility], [place], [address]. 800 Shannan Marti tel:[phone] Road, [place], [place], 0444 [place], [address], [place], [address]. tel: tel:[phone] 0001 - [facility] [[email or web address]] Primary Huy- SK[place] [facility] [[email or web address]] Inc, Care [place] test/exam, MASSIEL. 800 33-57 positive 3 Berto Rankin resultAbdomina [place], [place], Street, l [address]. Figueroa painGERDAbdomi tel:[phone] [place], nal PainGERD [facility] [address], [place] tel:+ [phone] 0001 - [facility] [[email or web address]] Walk-In Positive Sep- Referring [facility] test Provider: 33-57 Chris 3 WALKIN [facility], [facility] [place], [address], [place] tel:+ [phone] 0001 - [facility] [[email or web address]] Walk-In Sinusitis, JAE MEYERS. Referring [facility], Center AcuteSinusitis [address] Provider: 33-57 Chris , Acute [address], [place], [facility], [address]. [facility]. Figueroa tel:[phone] [place], [place], [address], [place] tel:+ [phone] 0001 - [facility] [[email or web address]] Primary Abdominal Nov-0 SKIADAS Referring [facility] [[email or web address]] Inc, Care [place] PainNausea And MASSIEL. 800 Provider: 33-57 VomitingAbdomi 2 MASSIEL Rankin nal PainNausea [place], [place], [facility], [place], And Vomiting [address]. 800 Shannan Marti tel:[phone] [facility], [place], [place], 0[address] [place], [address], [place], [address]. tel: tel:[phone] 0001 - [email or web address]] Primary Abdominal Nov-0 SKIADAS Referring S Inc, Care [place] PainNausea And MASSIEL. 800 Provider: 33-57 VomitingAbdomi 2 Shannan Johnston, MASSIEL Thomson nal PainNausea [place], [place], [facility], Street, And Vomiting [address]. 800 Shannan Marti tel:[phone] Road, [place], [place], [facility] [place], [address], [place], [address]. tel:+60 tel:[phone] 0001 - [facility] [[email or web address]] Primary Abdominal Oct-1 [facility] Referring S Inc, Care [place] PainGastroente 6-201 MASSIEL. 800 Provider: 33-57 ritisAbdominal 2 Shannan Johnston, MASSIEL Thomson PainNoninfecti [place], [place], [facility], [place], ous [address]. 800 Campbellzayda Marti Gastroenteriti tel:[phone] Road, [place], [place], s [address] [place] [address], [address], [place], [address]. tel:+ tel:[phone] 0001 - [facility] [[email or web address]] Primary Abdominal Sep-2 [facility], Care [place] PainDiarrhea 8201 MASSIEL. 800 33-57 NOSBackacheAbd 2 Campbellzayda Johnston, [place], [place], Street, PainDiarrhea [address]. Lexa NOSBackache tel:[phone] [place], [place], [facility] [address], [place] tel:[phone] 0001 - [facility] [[email or web address]] Primary Back pain Yosef-2 S Inc, Care [place] 5 33-57 2 [place], [address], [place] tel:[phone] 0001 - [email or web address]] Primary BackacheAbdomi Shayne-2 S Inc, Care [place] nal 33-57 PainBackacheAb 2 Kimber[place], [address], [place] tel:[phone] 0001 - S Primary Back pain January-3 S Inc, Care [place] 1 33-57 2 [place], [address], [place] tel:[phone] 0001 - S Walk-In Injury, May-2 OFELIA PRASAD. Referring [facility] [[email or web address]] Inc, Center superficial, 3 SWIC 91 Provider: 33-57 Nash corneaInjury, 2 Nash WALKIN Kimberly Bridge superficial, [address], [facility] Street, corneaInjury, [place], [place], [address]. [place], [place], cornea tel:[phone], [place] 4151 tel:[phone] 0001 - S Primary Sciatica Due Apr-3 SKIADAS Referring S Inc, Care [place] To 0-201 MASSIEL. 800 Provider: 33-57 Displacement 2 [place] Vickie, MASSIEL Berto Of Lumbar [place], [place], [place], Street, DiscSciatica [address]. 800 Campbell Figu[place]a Due To tel:[phone] Road, [place], [place], Displacement 0444 [place], [address], [place], [address]. tel:+60 DiscSciatica tel:[phone] Due To [id number] Displacement Of Lumbar DiscObesity 0001 - S Primary Back pain Apr-1 S Inc, Care [place] 0-201 33-57 2 [facility], [place], [address], [place] tel:[phone] 0001 - S Primary Lumbago due to Mar-2 [place] S Inc, Care [place] displacement 7-201 MASSIEL. 800 33-57 of 2 [facility], Berto intervertebral [place], [place], Street, disc [address]. Figueroa tel:[phone] [place], [place], [address], [place] tel:[phone] 0001 - S Primary Depression Mar-2 S Inc, Care [place] 0-201 33-57 2 [place], [address], [place] tel:[phone] 0001 - S Primary Bipolar Mar-1 [facility] S Inc, Care [place] affect, 6-201 MASSIEL. 800 33-57 depressedLumba 2 [facility] goRadiculitisBlue [place], [place], Street, lumbosacralBip [address]. Lexa olar affect tel:[phone] [place], [place], disord, [address], [place] depressed, tel:[phone] unspecifiedLum [phone] bagoRadiculiti s, Thoracic or Lumbar 0001 - S Walk-In UTIUrinary Referring [facility], Center Tract Provider: 33-57 Chris InfectionHerpe 2 WALK[address] [place] s, genital [address], NOSUrinary [place]ID[place]. [place], [place], InfectionHerpe [address], [place] s, genital tel:+ NOSUrinary [phone] Tract InfectionHerpe s, genital NOSUrinary Tract InfectionHerpe s, genital NOSUrinary Tract InfectionHerpe s, genital NOS 0001 - [facility] [[email or web address]] Primary Abdominal [facility], [facility] [place] PainGERDDiarrh 33-57 ea [address], PainGERDDiarWood[place], [place], NOSAmenorrhea [address], [place] tel:+ [phone] 0001 - [email or web address]] Primary Dehiscence of SKIADAS Referring [facility], [facility] closure of MASSIEL. 800 Provider: 33-57 skinCellulitis 1 [facility], [facility] Cellulitis [place], [place], [facility], [place], [address]. 800 [facility] tel:[phone] [place], [place], [facility] [place], [address], [place], [address]. tel:+ tel:[phone] 0001 - [email or web address]] Primary Abdominal Aug- [facility], [facility] PainDiarrhea MASSIEL. [facility] 33-57 NOSAbdominal 1 [facility] [place]DiT[place], [place], Street, NOS [address]. Lex[place] tel:[phone] [place], [place], [facility] [address], [place] tel:[phone] 0001 - [email or web address]] Primary Abdominal pain Jun- [facility], [facility] [place] UNSPCF 33-57 SITEAbdominal 1 Kimberly PainMigraine [place], [place], [address], [place] tel:+ [phone] 0001 - [email or web address]] Walk-In Urinary Tract JAE MEYERS. Referring [facility], [place] InfectionUrina [address] Provider: 33-57 Chris ry Tract [address], WALKIN [place] InfectionUrina [place], [place], [facility], ry Tract [address]. BRIDGE. Marti InfectionUrina tel:[phone] [place], [place], ry Tract 5333 [address], [place] Infection tel:+ [phone] [facility] - [facility] [[email or web address]] Primary ODESSA HUYNH. [facility] [[email or web address]] Inc, Edis Marti 6-200 [facility] 109 N 33-[address], [address]. Figueroa tel:[phone] [place], [place], [address], [place] tel:+ [phone] Family History Family Member Diagnosis Age At Onset Maternal uncle Family history of Thyroid disease Father Melanoma No family history of Cancer, colon Maternal uncle hole in aorta (Cause Of ) No family history of Cancer, breast Paternal grandfather Leukemia Paternal grandmother Stroke Maternal aunt Cancer, cervical Maternal uncle Sister Bipolar disorder Father [place] 55 Immunizations Vaccine Date Status Comments Influenza, injectable, administered Source: New Immunization quadrivalent, preservative Record free, split virus Influenza, injectable, administered Source: New Immunization quadrivalent, preservative Record free, split virus Influenza, injectable, administered Source: New Immunization quadrivalent, preservative Record free, split virus 3055-6315 Hep B, adult, 3 dose administered Source: New Immunization Record Influenza, injectable, administered Source: New Immunization quadrivalent, preservative Record free, split virus 3 years or older, Fluarix Quad 9430-4068 TDAP (Boostrix or Adacel) administered Source: New [...] New Immunization Record DTP administered Note: Abstracted 04/16/2007 ; Source: New Immunization Record Payers Payer name Insurance type Covered democrat ID Authorization(s) [employer] He [id number] [place] [employer] [place] He [id number] [place] [employer] [place] He [id number] BX Sam FHP Manrique He [id number] BX Sam FHP Manrique He [id number] BX Sam FHP Manrique He [id number] BX Sam FHP Manrique He [id number] Social History Type Description Quantity Date Captured [...] Referral Referred To: ordered GUANACO LEES MD [address] [place] [address], [address] [phone] Ordered: Referrals: Neurology. GUANACO LEES MD. Consult Referral Referred To: ordered GUS WILLIAMSON DO [address] [place], [address] [phone] Ordered: Referrals: Neurology. GUS WILLIAMSON DO. Follow-up and treat Referral Ordered: ordered GUS WILLIAMSON DO -Neurology (related to Encounter for wellness examination) Referral Referred To: ordered GUS WILLIAMSON DO [address] [place], [address] [phone] Ordered: Referrals: Neurology. GUS WILLIAMSON DO Referral Ordered: ordered Bariatric Surgery (related to Morbid obesity) Referral Referred To: ordered [address] [place], [address] [phone] Ordered: Referrals: Bariatric Surgery. Evaluate and treat Referral Ordered: ordered Neurology (related to Intractable migraine with aura with status migrainosus) Referral Referred To: ordered [address] [place], [address] [phone] Ordered: Referrals: Neurology. Evaluate and treat Referral Referred To: ordered 90 [place], [address] [phone] Ordered: Referrals: Referrals: Location: [facility] Location: [facility] Neurology Referral Ordered: ordered ALICIA DOSHI MD -Neurology (related to Migraine aura, persistent, intractable) Referral Referred To: ordered ALICIA DOSHI MD [address] [place], [address] [phone] Ordered: Referrals: Neurology. ALICIA DOSHI MD. Follow-up and treat Referral Ordered: ordered HILTON MALIK MD -Bariatric Surgery (related to Class 3 obesity without serious comorbidity with body mass index (BMI) of 50.0 to 59.9 in adult , unspecified obesity type) Referral Referred To: ordered HILTON MALIK MD 30 [facility] [address] [place] [address], [address] [phone] Ordered: Referrals: Bariatric Surgery. HILTON MALIK MD. Evaluate and treat Referral Ordered: ordered Physical Therapy (related to Lumbar spondylosis) Referral Referred To: ordered Physical Therapy Ordered: Referrals: Physical Therapy. Location: [email or web address]] Blender Helper Radha. Evaluate and treat Referral Ordered: ordered MRI of lumbar spine W/o Contrast Referral Referred To: ordered Physical Therapy Ordered: Referrals: Physical Therapy. Location: [email or web address]] Blender Helper Chris Wetzel. Evaluate and treat Referral Ordered: ordered *Electrocardiogram, tracing only Referral Ordered: ordered Referrals: Orthopedic Surgery Referral Referred To: ordered LUDY MONGE MD 52 [facility] Floor 2 [place], [phone] Ordered: Referrals: Pain Management. LUDY MONGE MD Referral Ordered: ordered Referrals: [facility] Referral Referred To: ordered JAMAICA REYNOLDS MD [address] [facility] [address] [place], [address] [phone] Ordered: Referrals: Cardiology. JAMAICA REYNOLDS MD Referral Ordered: ordered Referrals: Gastroenterology Appointment date/timeframe: 09/01/2017 Referral Ordered: ordered Referrals: Rheumatology. Location: [email or web address]] Mark Rheumatology. Evaluate and treat Referral Ordered: ordered Xray Hand complete (Must choose side) Right Referral Referred To: ordered JAMAICA REYNOLDS MD [email or web address]] [address] [place], [address] [phone] Ordered: Referrals: Cardiology. JAMAICA REYNOLDS MD. Evaluate and treat Appointment date/timeframe: 3 Weeks Referral Ordered: ordered Referrals: Gastroenterology. Location: [facility]. Evaluate and treat Appointment date/timeframe: 05/02/2016 Referral Ordered: ordered MRI lwr extrm joint, w/ocntrst RT knee Appointment date/timeframe: 1 Day Referral Ordered: ordered Xray Foot complete (Must choose side) Right Appointment date/timeframe: Stat Referral Ordered: ordered Referrals: Orthopedic Surgery. Location: [email or web address] Evaluate and treat Appointment date/timeframe: 12/13/2015 Referral Referred To: ordered GERMAN GARVIN MD [address] [place], [address] [phone] Ordered: Referrals: Sleep Disorders. GERMAN GARVIN MD. Evaluate and treat Appointment date/timeframe: 12/07/2015 Referral Referred To: ordered ALICIA DOSHI MD [address] [place], [address] [phone] Ordered: Referrals: Neurology. ALICIA DOSHI MD. Evaluate and treat Appointment date/timeframe: 3 Months Referral Referred To: ordered Physical Therapy Ordered: Referrals: Physical Therapy. Location: [facility] [[email or web address]] Physical Therapy - [place]. Evaluate and treat Appointment date/timeframe: 08/09/2015 Referral Referred To: ordered LAURA REYES [address] [place], [address] [phone] Ordered: LAURA REYES. Allergy/Immun. Consult and treat. [...] Referred To: ordered REGAN MENDOZA [address] [place], [address] [phone] Ordered: REGAN MENDOZA. Neurology. Consult and treat. Appointment date/timeframe: 07/20/2014 Referral Referred To: ordered [facility] [[email or web address]] Physical Therapy - [place] [address] [place], [address] [phone] Ordered: [facility] [[email or web address]] Physical Therapy - [place] Physical Therapy. Evaluate patient, develop plan and implement plan. Appointment date/timeframe: 06/10/2014 Referral Referred To: ordered [facility] [address] [place], [address] [phone] Ordered: [facility] Pain Management. Consult and treat. Appointment date/timeframe: 1 Month Referral Referred To: ordered DEANA ALVARADO [address] [place], [address] [phone] Ordered: DEANA ALVARADO. Nutrition. Consult and treat. Appointment date/timeframe: 2 Weeks Referral Referred To: ordered Chris PT @ 1 [facility] 3 Ordered: Chris PT @ 1 [facility] 3. Physical Therapy. Consult and treat. Appointment date/timeframe: 1 Week Referral Ordered: ordered . Phys Med/Rehab. Consult and treat. Appointment date/timeframe: 1 Week Referral Ordered: ordered . Physical Therapy. Evaluate patient, develop plan and implement plan. Referral Ordered: ordered U/S Transvaginal OB Appointment date/timeframe: 10/21/2012 Referral Ordered: ordered . Obstetrics/Real Estate Operations Manager. Consult and treat. Appointment date/timeframe: 1 Week Referral Ordered: ordered . Gastroenterology. Consult and treat. Appointment date/timeframe: 07/24/2012 Referral Referred To: ordered RAYMUNDO CARVALHO Ordered: RAMYUNDO CARVALHO. Chiropractor. Consult and treat. Referral Ordered: ordered . Neurosurgery. Consult and treat. Appointment date/timeframe: 02/04/2012 Referral Ordered: ordered . Nutrition. Consult and treat. Appointment date/timeframe: 01/27/2012 Referral Referred To: ordered MARGUERITE NAJERA [address], [address] [phone] Ordered: MARGUERITE NAJERA. Ortho Surg. Consult and treat. Referral Ordered: ordered . Physical Therapy. Consult and treat. Appointment date/timeframe: 12/25/2011 Referral Ordered: ordered . Psychologist. Consult and treat. Appointment date/timeframe: 12/24/2011 Referral Referred To: ordered NATHAN READ Ordered: NAHTAN READ. Obstetrics/Real Estate Operations Manager. Consult and treat. Referral Referred To: ordered AMARILYS RAHMAN JR [facility] [address], [address] Ordered: AMARILYS RAHMAN JR. Gastroenterology. Consult and treat. Referral Referred To: ordered MIRA GRADY [facility] [address] [place], [address] [phone] Ordered: MIRA GRADY. Gastroenterology. Consult and treat. [...] Number mg-naloxone 1 mg sublingual route Active [id number] (D. sublingual film every day allow Young) or to dissolve [id number] slowly in mouth (Steve), without chewing [id number] or swallowing (Maggi), [id number] (Letty), [id number] (Kyle Ríos) MDD 6mg buprenorphine [address] 1 film by 1 film - No Longer Waiver Number mg-naloxone 0.5 mg sublingual route Active [id number] (D. sublingual film every day allow Young) or to dissolve [id number] slowly in mouth (Steve), without chewing [id number] or swallowing (Maggi), [id number] (Letty), [id number] (Kyle Ríos) MDD 6mg Instructions Date Instruction Additional Information - Pt. on Amovig, but unable to get it Related to Migraine without aura and approved due to insurance changes.- without status migrainosus, not Wants to be referred to a specific FORENSIC INVESTIGATOR intractable who specializes in migraines. Will send [...] medications. However, please see a psychiatrist at [facility] like you are planning to so that they can optimize your medications and you can have your prescriptions filled in by them. Thank you. - As above Related to 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 Currently been stable on [...] are trying to get a therapist at [facility] It was nice seeing you today [...] counselling. You were given the number for zully francis and SHANT. It was nice meeting you today and [...] with Related to Intractable migraine with your pillowcase maker for this issue. aura with status migrainosus Also, follow up with me after your visit to [place]. Glad you're feeling better! Please Related to Chest pain, unspecified follow up with Dr. Reynolds. type Please see me at your next Related to Intractable migraine with appointment with your pillowcase maker. I aura without status migrainosus will try [...] concerning symptoms. Thank you for choosing the [facility] [[email or web address]] Walk Ins. We hope that you will [...] referral for Related to Intractable migraine with [facility]. In the meantime, aura without status [...] to touch base! Please join the [facility] by the end of Related to Class [...] Body mass index (BMI) 50-59.9 , adult If your migraine does not get better Related to Migraine without aura and with your medications at home, come without status migrainosus, not to the office instead of the ED. intractable You are improving! Continue finishing Related to Hospital discharge the antibiotics and use the inhaler follow-up as needed. Visit me within the next month for a Wellness exam. Reassurance. (self-limited). Fluids. Related to Acute pharyngitis [...] 2-3 days. Thank you for choosing the [facility] [[email or web address]] Walk Ins. We hope that you will [...] records from unspecified when you were at [place] and from the psychiatrist you are seeing. You have been receiving ECT and you are requesting medical clearance however you have not followed up with the oven press tender. Please make sure you follow up with cardiology. Use Tylenol /ice/rest /nakia wrap over Related to Acute pain of left knee the knee, Pl transfer records from [place] Related to Medication management ,abdominal pain management [...] for further workup to rule out a GAMING CAGE CASHIER pathology, and to ensure hemodynamic stability while on blood thinners. Thank you for choosing the [facility] [[email or web address]] Walk In. We hope that you will [...] your Related to Ob[facility], [facility]. Please obesity severity, unspecified request that they [...] verbalized understanding -Thank you for choosing the [facility] [[email or web address]] Walk In. We hope that you will [...] or worsen. Thank you for choosing the [facility] [[email or web address] Walk In. We hope that you will [...] up with us. [facility] Related to Croup, spasmodic prednisoneuse the albuterol via the nebulizerdrink plenty of warm fluidsrest. Thank you for choosing the [facility] [[email or web address] Walk In. We hope that you will [...] discussed encounter for referring you to our equipment monitor phototypesetting, she is located in the [facility] office, please make a referral up front for Deana May. We have also advised you to visit [facility] and they [...] to the best of my ability.Refer to KELSIElisaopal has Voltaren Gel at homeFollow up x [...] symptoms occur. Thank you for choosing the [place] [facility]. We hope that you will [...] to inquire about it. Call our office ([facility]) or visit the ER if your symptoms worsens. F/U in 2 weeks or earlier as needed a script wass written for autoPAP and Related to Sleep apnea, obstructive it will be sent to [facility] Patient's INR decreased and overtly Related [...] further evaluation/treatment. Thank you for choosing the [facility] [[email or web address] Walk Ins. We hope that you will [...] finish prednisone Thank you for choosing the [facility] [[email or web address] Walk In. We hope that you will [...] for regular care by your primary provider. The patient would like to proceed Related [...] PT PTT the morning of the surgery. I went over the etiology of stress Related to Stress incontinence incontinence as well as her (female) (male) urodynamics. She would like to proceed with a retropubic sling. cool, rest ,f/u up reg pcp, or [...] Exam reported was done recently and another GAMING CAGE CASHIER office. You also reported that you had [...] or worsen Thank you for choosing the [facility]. We hope and expect that [...] one week. Thank you for choosing the [facility]. We hope and expect that [...] days - Thank you for choosing the [facility]. We hope that you will [...] further evaluation. Thank you for choosing the [facility] [[email or web address] Walk Ins. We hope that you will [...]
--- OUTSIDE RECORDS SUMMARY | 2019-11-01 19:48 | XMS REPORT | Summary of Care ---
:1980 Author Organization [facility] Address [address] [facility] [place] [address] Care Team Providers Name Role Phone Diaz Campos MD Primary Care Provider Reason for Visit Reason Comments Headache Encounter Details Date Type Department Care Team Description 10/17/2019 Emergency [facility] Emergency Department Mark Higgins MD Emergency [address] [facility] [place] [id number] [place] [address] Allergies Active Allergy Reactions Severity Noted Date Comments Compazine Other 04/20/2017 Dystonia Valproic Acid Hives 06/28/2018 IV preparation Reglan Other 04/20/2017 Dystonia documented as of this encounter (statuses as of 10/18/2019) Medications Medication Sig Dispensed Refills Start Date [...] EVERY SIX HOURS NEEDED (for muscle spasm). methylPREDNISolone This is a 21 Tab 0 10/17/2019 Active (MEDROL) 4 MG Oral Tab medrol dosepak, take as directed documented as of this encounter (statuses as of 10/18/2019) Active Problems Problem Noted Date Migraine aura, persistent, intractable 08/21/2018 Chest pain 08/21/2018 Depression 08/21/2018 PVC (premature ventricular contraction) 08/21/2018 Hypothyroidism 08/21/2018 Abdominal pain, unspecified site 07/30/2011 documented as of this encounter (statuses as of 10/18/2019) Social History Tobacco Use Types Packs/Day Years [...] Sign Reading Time Taken Comments Blood Pressure 114/75 10/17/2019 7:00 PM EST Pulse 107 10/17/2019 7:00 PM EST Temperature 36.4 10/17/2019 5:12 PM EST C (97.6 F) Respiratory Rate 25 10/17/2019 7:00 PM EST Oxygen Saturation 96% 10/17/2019 7:00 PM EST Inhaled Oxygen Concentration - - Weight - - Height - - Body Mass Index - - documented in this encounter Discharge Instructions AttachmentsThe following attachments cannot be sent through Care Everywhere.Headache, Adult (Comoran)documented in this encounter Plan of Treatment Name Type Priority Associated Diagnoses Date/Time INPT/ED 12 LEAD EKG EKG STAT 10/17/2019 5:16 PM EST Health Maintenance Due Date Last Done Comments [...] this topic documented as of this encounter Results Not on filedocumented in this encounter Visit Diagnoses Diagnosis Chronic nonintractable headache, unspecified headache type SVT (supraventricular tachycardia) (HCC) Other specified cardiac dysrhythmias documented in this encounter Administered Medications Medication Order MAR Action Action Date Dose Rate Site dexamethasone (DECADRON) injection Given 10/17/2019 6:22 PM EST 4 mg 4 mg 4 mg, Intravenous Push, X1, 1 dose, First dose on 10/17/19 at 1835 diphenhydrAMINE (BENADRYL) injection 25 mg Given 10/17/2019 6:29 PM EST 25 mg 25 mg, Intravenous Push, NOW, 1 dose, 10/17/19 at 1830 diphenhydrAMINE (BENADRYL) injection 50 mg Given 10/17/2019 5:36 PM EST 50 mg 50 mg, Intravenous Push, X1, 1 dose, First dose on 10/17/19 at 1840, Please dilute in 100cc bag of saline, ketorolac (TORADOL) injection 30 mg Given 10/17/2019 5:36 PM EST 30 mg 30 mg, Intravenous Push, X1, 1 dose, First dose on 10/17/19 at 1820 magnesium sulfate IV premix 2 g New Bag 10/17/2019 5:45 PM EST 2 g 2 g, Intravenous, NOW, 1 dose, 10/17/19 at 1720 normal saline bolus 1,000 mL New Bag 10/17/2019 5:33 PM EST 1,000 mL 1,000 mL, Intravenous, BOLUS, 1 dose, 10/17/19 at 1820 ondansetron (ZOFRAN) injection 4 mg Given 10/17/2019 5:34 PM EST 4 mg 4 mg, Intravenous Push, NOW, 1 dose, 10/17/19 at 1720 promethazine (PHENERGAN) suppository 12.5 Given 10/17/2019 6:29 PM EST 12.5 mg mg 12.5 mg, Rectal, X1, 1 dose, First dose on 10/17/19 at 1820, Promethazine tabs and suppositories are contraindicated for children under 2 yeas of age., documented in this encounter Insurance Payer Benefit Plan / Subscriber ID Effective Dates Phone Address Type Group BCBS EMPIRE BCBS EMPIRE PPO xxxxxxxxxxxx 2018-Present Blue Cross/Blue Shield Guarantor Name Account Type Relation to Date of Phone Billing Patient Address Jocelyne Marx Personal/Family 1980 [phone] [address] (Home) [facility] [phone] [place], [place] (Work) [address] documented as of this encounter Advance Directives Code Status Date Activated Date Inactivated Comments Full Code 08/21/2018 8:35 PM 08/23/2018 5:07 PM Does patient have decision making capacity? yes Order discussed with: Patient I discussed all options and patient/surrogate requested and agreed to: Full Code
--- OUTSIDE RECORDS SUMMARY | 2019-11-01 19:49 | XMS REPORT | Continuity of Care Document ---
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 Unavailable Unavailable Allergies, Adverse Reactions, Alerts Substance Reaction Status prasterone (DHEA) Active CALCIUM PHOSPHATE,DIBASIC Active calcium carbonate Active PROCHLORPERAZINE MALEATE (mild to moderate) Active PROCHLORPERAZINE EDISYLATE (mild to moderate) Active prochlorperazine (mild to moderate) Active METOCLOPRAMIDE HCL Active Medications Medication Instructions Dosage Effective Dates (start - stop) Status Comments Drug Treatment Unknown Problems Condition Effective Dates (start - stop) Clinical Status Unknown Procedures Procedure Date Procedure Unknown Results Test Name Date and Time Measure Units Reference Range Abnormal Flag Status Comments Unknown Encounters Encounter Practice Location Reason(s) Diagnoses Date Provider Providers Description For Visit Copied on Encounter 2018 [facility] IMITATION [employer], [facility]2018 [place], [address], tel:[phone] 2018 [facility] Primary CARR[employer], [facility] Figueroa 2018 [address] [place] [address], [address]. [address], [place] tel:[phone] tel:[phone] 0001 - [facility] [employer], [facility] -2018 STEPHANIE. [address] [facility], [facility], [place], [place], [place], [address], [place] [address]. tel:[phone] tel:[phone] 0001 - [facility] OROT [employer], [facility] -2016 COCO. [address] [facility], [place], [place], [place], [address]. [address], [place] tel:[phone] tel:[phone] 2018 - [facility] KAREN [employer], [facility] -2015 LUDY. [address] [facility], [facility], [place], [place], [place], [address], [place] [address]. tel:[phone] tel:[phone] 2018 - [facility] May- [employer]EN [employer], [facility] -2015 AHMED. [address] [facility], [facility], [place], [place], [place], [address], [place] [address]. tel:[phone] tel:[phone] 2018 - [facility]OWRIE CASEY. Inc, Orthopedics -[address] [facility], [address]. [place], [place], tel:[phone], [place] [address] tel:[phone] 2018 - [facility] KAREN [employer], [facility] -2014 LUDY. [address] [facility], [facility], [place], [place], [place], [address], [place] [address]. tel:[phone] tel:[phone] 2018 - [facility] [employer] Referring [employer], [facility] -2012 MARJAN. Provider: Berto [address] [place] [address], [address] [place], [place], [place], [place], [place] [address], [place] [address]. [address] Candelario, tel:[phone] tel:[phone], [phone] [place], [address]. 0001 - [facility] [employer], [address] 2006 AMINA. [facility] [address] [place], [place], [address]. [address], [place] tel:[phone] tel:[phone] Family History Family Member Diagnosis Age At Onset Maternal uncle Family history of Thyroid disease Father Melanoma No family history of Cancer, colon Maternal uncle hole in aorta (Cause Of ) No family history of Cancer, breast Paternal grandfather Leukemia Paternal grandmother Stroke Maternal aunt Cancer, cervical Maternal uncle Sister Bipolar disorder Father [place] 55 Immunizations Vaccine Date Status Comments Influenza, injectable, administered Source: New Immunization quadrivalent, preservative Record free, split virus Influenza, injectable, administered Source: New Immunization quadrivalent, preservative Record free, split virus Influenza, injectable, administered Source: New Immunization quadrivalent, preservative Record free, split virus [id number] Hep B, adult, 3 dose administered Source: New Immunization Record Influenza, injectable, administered Source: New Immunization quadrivalent, preservative Record free, split virus 3 years or older, Fluarix Quad [id number] TDAP (Boostrix or Adacel) administered Source: New [...] New Immunization Record OPV administered Note: Abstracted 04/16/2007 ; Source: New Immunization Record DTP administered Note: Abstracted -04/16/2007 ; Source: New Immunization Record MMR administered Note: Abstracted -04/16/2007 ; Source: New Immunization Record OPV administered Note: Abstracted -04/16/2007 ; Source: New Immunization Record DTP administered Note: Abstracted -04/16/2007 ; Source: New Immunization Record DTP administered Note: Abstracted 04/16/2007 ; Source: New Immunization Record OPV administered Note: Abstracted 04/16/2007 ; Source: New Immunization Record DTP administered Note: Abstracted 04/16/2007 ; Source: New Immunization Record OPV administered Note: Abstracted 04/16/2007 ; Source: New Immunization Record DTP administered Note: Abstracted 04/16/2007 ; Source: New Immunization Record Payers Payer name Insurance type Covered libertarian ID Authorization(s) [employer] He [id number] [employer] [place] He [id number] [employer] [place] He [id number] BX [facility] Manrique He [id number] BX [facility] Manrique He [id number] BX [facility] Manrique He [id number] BX [facility] Manrique He [id number] Social History Type Description Quantity Date Captured Comments Unknown Vital Signs Date / Height Weight BMI Pulse Blood Temperature Respiratory Body Head BMI Time: Rate Pressure Rate Surface Circumference percentile Area Unknown Chief Complaint And Reason For Visit No information Reason For Referral Reason For Referral Unknown Plan Of Care Date Type Action Status Unknown Date Type Problem Goal Intervention Status Start Date Unknown History Of Present Illness Encounter Date Complaint History Of Present Illness No information Functional Status Encounter Date Functional Assessment Cognitive Assessment Unknown Medications Administered Medication Instructions Dosage Effective Dates (start - stop) Status Comments Drug Treatment Unknown Instructions Date Instruction Additional Information Unknown
--- OUTSIDE RECORDS SUMMARY | 2019-11-01 19:49 | XMS REPORT | Summary of Care ---
:1980 Author Organization [facility] Address [address] [address] Care Team Providers Name Role Phone Diaz Campos MD Primary Care Provider Reason for Visit Reason Comments Headache Encounter Details Date Type Department Care Team Description 09/24/2019 Emergency [facility] Emergency Department Mark Higgins MD [address] [id number] Emergency 1 Gisele Pierson MD [address] [address] [address] [id number] Allergies Active Allergy Reactions Severity Noted Date Comments Compazine Other 04/20/2017 Dystonia Valproic Acid Hives 06/28/2018 IV preparation Reglan Other 04/20/2017 Dystonia documented as of this encounter (statuses as of 09/25/2019) Medications Medication Sig Dispensed Refills Start Date [...] TWICE (MACROBID) 100 MG Oral DAILY. Cap documented as of this encounter (statuses as of 09/25/2019) Active Problems Problem Noted Date Migraine aura, persistent, intractable 08/21/2018 Chest pain 08/21/2018 Depression 08/21/2018 PVC (premature ventricular contraction) 08/21/2018 Hypothyroidism 08/21/2018 Abdominal pain, unspecified site 07/30/2011 documented as of this encounter (statuses as of 09/25/2019) Social History Tobacco Use Types Packs/Day Years [...] Sign Reading Time Taken Comments Blood Pressure 121/76 09/24/2019 11:00 PM EST Pulse 105 09/24/2019 11:00 PM EST Temperature 36.4 09/24/2019 6:49 PM EST C (97.6 F) Respiratory Rate 18 09/24/2019 5:13 PM EST Oxygen Saturation 92% 09/24/2019 11:00 PM EST Inhaled Oxygen Concentration - - Weight - - Height - - Body Mass Index - - documented in this encounter Discharge Instructions AttachmentsThe following attachments cannot be sent through Care Everywhere.Headache, Adult (Belgian)documented in this encounter Plan of Treatment Health [...] filedocumented in this encounter Visit Diagnoses Diagnosis Acute nonintractable headache, unspecified headache type documented in this encounter Administered Medications Medication Order MAR Action Action Date Dose Rate Site dexamethasone (DECADRON) injection Given 09/24/2019 8:14 PM EST 10 mg 10 mg 10 mg, Intravenous Push, X1, 1 dose, First dose on Fri09/24/19 at 2014 diphenhydrAMINE (BENADRYL) injection 25 mg Given 09/24/2019 10:55 PM EST 25 mg 25 mg, Intravenous Push, NOW, 1 dose, Fri09/24/19 at 2225 diphenhydrAMINE (BENADRYL) injection 50 mg Given 09/24/2019 8:08 PM EST 50 mg 50 mg, Intravenous Push, X1, 1 dose, First dose on Fri09/24/19 at 2014 ketorolac (TORADOL) injection 30 mg Given 09/24/2019 8:11 PM EST 30 mg 30 mg, Intravenous Push, X1, 1 dose, First dose on Fri09/24/19 at 2014 magnesium sulfate IV premix 2 g New Bag 09/24/2019 8:07 PM EST 2 g 2 g, Intravenous, NOW, 1 dose, Fri09/24/19 at 1915 normal saline bolus 1,000 mL New Bag 09/24/2019 8:09 PM EST 1,000 mL 1,000 mL, Intravenous, BOLUS, 1 dose, Fri09/24/19 at 2014 normal saline bolus 1,000 mL New Bag 09/24/2019 9:56 PM EST 1,000 mL 1,000 mL, Intravenous, BOLUS, 1 dose, Fri09/24/19 at 2250 ondansetron (ZOFRAN) injection 4 mg Given 09/24/2019 8:07 PM EST 4 mg 4 mg, Intravenous Push, NOW, 1 dose, Fri09/24/19 at 1915 ondansetron (ZOFRAN) injection 4 mg Given 09/24/2019 9:55 PM EST 4 mg 4 mg, Intravenous Push, NOW, 1 dose, Fri09/24/19 at 2150 promethazine (PHENERGAN) tablet 12.5 mg Given 09/24/2019 10:57 PM EST 12.5 mg 12.5 mg, Oral, X1, 1 dose, First dose on Fri09/24/19 at 2225, Phenergan Tabs and Suppositories are contraindicated for children under 2 years of age, documented in this encounter Insurance Payer Benefit Plan / Subscriber ID Effective Dates Phone Address Type Group BCBS EMPIRE BCBS EMPIRE PPO xxxxxxxxxxxx 2018-Present Blue Cross/Blue Shield Guarantor Name Account Type Relation to Date of Phone Billing Patient Address Jocelyne Marx Personal/Family 1980 [address] (Home) [facility] [phone] [place], [place] (Work) [address] documented as of this encounter Advance Directives Code Status Date Activated Date Inactivated Comments Full Code 08/21/2018 8:35 PM 08/23/2018 5:07 PM Does patient have decision making capacity? yes Order discussed with: Patient I discussed all options and patient/surrogate requested and agreed to: Full Code
--- OUTSIDE RECORDS SUMMARY | 2019-11-01 19:49 | XMS REPORT | Summary of Care ---
:1980 Author Organization [facility] Address [address] [address] Care Team Providers Name Role Phone Diaz Campos MD Primary Care Provider Reason for Visit Reason Comments Headache Encounter Details Date Type Department Care Team Description 10/02/2019 - 10/03/2019 Emergency [facility] Emergency Department Emergency [address] [id number] Allergies Active Allergy Reactions Severity Noted Date Comments Compazine Other 04/20/2017 Dystonia Valproic Acid Hives 06/28/2018 IV preparation Reglan Other 04/20/2017 Dystonia documented as of this encounter (statuses as of 10/04/2019) Medications Medication Sig Dispensed Refills Start Date [...] as of this encounter (statuses as of 10/04/2019) Active Problems Problem Noted Date Migraine aura, persistent, intractable 08/21/2018 Chest pain 08/21/2018 Depression 08/21/2018 PVC (premature ventricular contraction) 08/21/2018 Hypothyroidism 08/21/2018 Abdominal pain, unspecified site 07/30/2011 documented as of this encounter (statuses as of 10/04/2019) Social History Tobacco Use Types Packs/Day Years [...] Sign Reading Time Taken Comments Blood Pressure 125/74 10/03/2019 3:57 AM EST Pulse 88 10/03/2019 3:57 AM EST Temperature 37 10/02/2019 10:45 PM EST C (98.6 F) Respiratory Rate 18 10/03/2019 3:57 AM EST Oxygen Saturation 96% 10/03/2019 3:57 AM EST Inhaled Oxygen Concentration - - Weight - - Height - - Body Mass Index - - documented in this encounter Discharge Instructions Valorie Brown PA - 10/03/2019Excedrin migraine or Aleve at the start of future headaches Rest, avoid aggravating activities Drink plenty of water Avoid headache triggers Follow-up with PCP Return to the emergency department or call if your symptoms worsen or you have any other concerns documented in this encounter Plan of Treatment [...] filedocumented in this encounter Visit Diagnoses Diagnosis Migraine without status migrainosus, not intractable, unspecified migraine type documented in this encounter Administered Medications Medication Order MAR Action Action Date Dose Rate Site dexamethasone (DECADRON) injection Given 10/03/2019 12:17 AM EST 10 mg 10 mg 10 mg, Intravenous Push, NOW, 1 dose, 10/03/19 at 0000 diphenhydrAMINE (BENADRYL) injection 50 mg Given 10/03/2019 12:18 AM EST 50 mg 50 mg, Intravenous Push, NOW, 1 dose, 10/03/19 at 0000 diphenhydrAMINE (BENADRYL) injection 50 mg Given 10/03/2019 1:20 AM EST 50 mg 50 mg, Intravenous Push, NOW, 1 dose, 10/03/19 at 0125 ketorolac (TORADOL) injection 30 mg Given 10/03/2019 12:18 AM EST 30 mg 30 mg, Intravenous Push, NOW, 1 dose, 10/03/19 at 0000 magnesium sulfate IV premix 2 g New Bag 10/03/2019 2:58 AM EST 2 g 2 g, Intravenous, NOW, 1 dose, 10/03/19 at 0240 normal saline bolus 1,000 mL New Bag 10/03/2019 12:31 AM EST 1,000 mL 1,000 mL, Intravenous, BOLUS, 1 dose, 10/03/19 at 0000 normal saline bolus 500 mL New Bag 10/03/2019 2:58 AM EST 500 mL 500 mL, Intravenous, BOLUS, 1 dose, 10/03/19 at 0315 ondansetron (ZOFRAN) injection 4 mg Given 10/03/2019 12:17 AM EST 4 mg 4 mg, Intravenous Push, NOW, 1 dose, 10/03/19 at 0000 ondansetron (ZOFRAN) injection 4 mg Given 10/03/2019 1:15 AM EST 4 mg 4 mg, Intravenous Push, NOW, 1 dose, 10/03/19 at 0105 documented in this encounter Insurance Payer Benefit Plan / Subscriber ID Effective Dates Phone Address Type Group BCBS EMPIRE BCBS EMPIRE PPO xxxxxxxxxxxx 2018-Present Blue Cross/Blue Shield Guarantor Name Account Type Relation to Date of Phone Billing Patient Address Jocelyne Marx Personal/Family 1980 [address] (Home) [facility] [phone] [place], [place] (Work) [address] documented as of this encounter Advance Directives Code Status Date Activated Date Inactivated Comments Full Code 08/21/2018 8:35 PM 08/23/2018 5:07 PM Does patient have decision making capacity? yes Order discussed with: Patient I discussed all options and patient/surrogate requested and agreed to: Full Code
[2019-11-02 01:09] VITALS: BP 110/61
== END 2019-11-02 01:04 | disposition left against medical advice (07) ==
LOC: ED 19:19
DX: Z53.21 Procedure and treatment not carried out due to patient leaving prior to being seen by health care provider (principal); R51 Headache
CPT/HCPCS: 99282

== ENCOUNTER 2019-11-02 18:10 | Emergency (ER) | payer BC ==
[2019-11-02 20:16] LABS: ABS Basophils 0.1 10^3/ul (0-0.2); ABS Eosinophils 0.3 10^3/ul (0-0.6); ABS Lymphocytes 4.4 10^3/ul (1.0-4.8); ABS Monocytes 0.7 10^3/ul (0-0.8); ABS Neutrophils 7.2 10^3/ul (1.5-7.7); Eosinophil % 2.5 %; Hematocrit 42 % (35-47); Hemoglobin 14.2 g/dL (12.0-16.0); Lymphocyte % 34.4 %; Mean Corpuscular HGB Conc 34 g/dL (31-36); Mean Corpuscular Hemoglobin 30 pg (27-31); Mean Corpuscular Volume 88 fL (80-97); Mean Platelet Volume 7.5 fL (7.4-10.4); Platelet Count 320 10^3/uL (150-450); Red Blood Count 4.72 10^6 /uL (3.70-4.87); Red Cell Distribution Width 15 % (10-15); White Blood Count 12.8 10^3/uL (3.5-10.8)
[2019-11-02 20:36] LABS: Albumin 3.8 g/dL (3.2-5.2); Albumin/Globulin Ratio 1.3 (1-3); Calcium 8.8 mg/dL (8.6-10.3); EGFR Non-African American 83.5 (>60); Globulin 2.9 g/dL (2-4); Potassium 3.8 mmol/L (3.5-5.0); Total Bilirubin 0.3 mg/dL (0.2-1.0); Total Protein 6.7 g/dL (6.4-8.9)
[2019-11-02 20:40] LABS: HCG Pregnancy 0.62 mIU/mL
[2019-11-02] MEDS ORDERED: Ketorolac INJ* 30 MG/ML 1 ML VIAL IV ONE (20:40)
[2019-11-02] MEDS ORDERED: NS 0.9% 1000 ML** 1,000 ML IV ONE (20:40)
[2019-11-02] MEDS ORDERED: diPHENhydraMINE IV* 50 MG/ML 1 ml VIAL (BENADRYL) IV ONE (20:41)
[2019-11-02] MEDS ORDERED: Ondansetron INJ* 2 MG/ML VIAL IV ONE (20:45)
[2019-11-02] MEDS ORDERED: Dexamethasone IV* 10 MG in NS 0.9% 50 ML* 50 ML IVPB ONE (20:45)
--- NOTE | 2019-11-02 20:46 | ED ---
Headache - HPI Summary HPI Summary: Patient complains of headache 5 days, with associated photophobia, dizziness, nausea. Patient states history of migraines, states these are her usual symptoms. Usual Imitrex and ibuprofen provided no relief. Denies, cough, sore throat, neck stiffness, CP, SOB, V/D, abdominal pain, change in urine, change in BM. Medical history is migraines. - History Of Current Complaint Chief Complaint: EDHeadache Stated Complaint: HEADACHE SEEN YESTERDAY PER PT Time Seen by Provider: 11/02/19 20:28 Hx Obtained From: Patient Onset/Duration: Gradual Onset, Started days ago Initially Headache Was: Moderate Currently Pain Is: Moderate Timing: Constant Character: Dull, Throbbing Location of Headache: Frontal Aggravating Factor: Bright Lights Allevating Factors: Nothing Associated Signs And Symptoms: Nausea - Allergies/Home Medications Allergies/Adverse Reactions: Allergies Allergy/AdvReac Type Severity Reaction Status Date / Time calcium [From DHEA] Allergy Headache Verified 11/01/19 19:39 calcium carbonate [From DHEA] Allergy Headache Verified 11/01/19 19:39 metoclopramide [From Reglan] Allergy See Comment Verified 11/01/19 19:39 prasterone (DHEA) [From DHEA] Allergy Headache Verified 11/01/19 19:39 prochlorperazine Allergy See Comment Verified 11/01/19 19:39 [From Compazine] Home Medications: Home Medications ARIPiprazole TAB* [Abilify 20 MG TAB*] 20 mg PO DAILY 11/02/19 [History Confirmed 11/02/19] BuPROPion XL* [Bupropion XL*] 300 mg PO DAILY 11/02/19 [History Confirmed ] Buprenorphine HCl/Naloxone HCl [Buprenorphn-Naloxn 2-0.5 mg Sl] 3 tab SL DAILY 11/02/19 [History Confirmed 11/02/19] DULoxetine DR CAP* [Cymbalta CAP*] 60 mg PO BID 11/02/19 [History Confirmed 08/11] Gabapentin CAP(*) [Neurontin 300 CAP(*)] 300 mg PO TID 11/02/19 [History Confirmed 11/02/19] Omeprazole (Nf) [Prilosec (NF)] 40 mg PO DAILY 11/02/19 [History Confirmed 11/02] Ondansetron TAB* [Zofran 4 MG Tab*] 4 mg PO Q6H PRN 11/02/19 [History Confirmed 11/02/19] SUMAtriptan TAB* [Imitrex TAB*] 100 mg PO DAILY PRN MDD 200mg 11/02/19 [History Confirmed 11/02/19] lamoTRIgine TAB(*) [LaMICtal TAB(*)] 150 mg PO DAILY 11/02/19 [History Confirmed 11/02/19] PMH/Surg Hx/FS Hx/Imm Hx Endocrine/Hematology History: Denies: Hx Anticoagulant Therapy Cardiovascular History: Denies: Hx Pacemaker/ICD History: Denies: Hx Dialysis Sensory History: Denies: Hx Eye Prosthesis Opthamlomology History: Denies: Hx Legally Blind EENT History: Denies: Hx Deafness Neurological History: Denies: Hx Dementia Infectious Disease History: No Infectious Disease History: Denies: Traveled Outside the [place] in Last 30 Days - Family History Known Family History: Positive: Non-Contributory - Social History Alcohol Use: Occasionally Hx Substance Use: No Hx Tobacco Use: No Review of Systems Constitutional: Negative Positive: Photophobia ENT: Negative Cardiovascular: Negative Respiratory: Negative Positive: Nausea Genitourinary: Negative Musculoskeletal: Negative Skin: Negative Positive: Headache Psychological: Normal All Other Systems Reviewed And Are Negative: Yes Physical Exam Triage Information Reviewed: Yes Vital Signs On Initial Exam: Initial Vitals Temp Pulse Resp BP Pulse Ox 97.1 F 119 18 134/98 97 11/02/19 18:14 11/02/19 18:14 11/02/19 18:14 11/02/19 18:14 11/02/19 18:14 Vital Signs Reviewed: Yes Appearance: Positive: Well-Appearing Skin: Positive: Warm Head/Face: Positive: Normal Head/Face Inspection Eyes: Positive: Normal Neck: Positive: Supple Respiratory/Lung Sounds: Positive: Clear to Auscultation Cardiovascular: Positive: Normal Abdomen Description: Positive: Nontender Musculoskeletal: Positive: Normal Neurological: Positive: Normal Psychiatric: Positive: Normal AVPU Assessment: Alert - Gypsy Coma Scale Best Eye Response: 4 - Spontaneous Best Motor Response: 6 - Obeys Commands Best Verbal Response: 5 - Oriented Coma Scale Total: 15 Procedures - Sedation Patient Received Moderate/Deep Sedation with Procedure: No Diagnostics - Vital Signs Vital Signs Temp Pulse Resp BP Pulse Ox 11/02/19 20:12 98.0 F 110 18 132/87 98 11/02/19 18:14 97.1 F 119 18 134/98 97 - Laboratory Lab Results: Lab Results 11/02/19 11/02/19 11/02/19 Range/Units 20:02 20:02 20:03 WBC 12.8 H (3.5-10.8) 10^3/uL RBC 4.72 (3.70-4.87) 10^6 /uL Hgb 14.2 (12.0-16.0) g/dL Hct 42 (35-47) % MCV 88 (80-97) fL MCH 30 (27-31) pg MCHC 34 (31-36) g/dL RDW 15 (10-15) % Plt Count 320 (150-450) 10^3/uL MPV 7.5 (7.4-10.4) fL Neut % (Auto) 56.5 % Lymph % (Auto) 34.4 % Atlantic % (Auto) 5.7 % Eos % (Auto) 2.5 % Baso % (Auto) 0.9 % Absolute Neuts (auto) 7.2 (1.5-7.7) 10^3/ul Absolute Lymphs (auto) 4.4 (1.0-4.8) 10^3/ul Absolute Monos (auto) 0.7 (0-0.8) 10^3/ul Absolute Eos (auto) 0.3 (0-0.6) 10^3/ul Absolute Basos (auto) 0.1 (0-0.2) 10^3/ul Absolute Nucleated RBC 0.0 10^3/ul Nucleated RBC % 0.0 ESR Pending Carbon Monoxide Screen (<4.0) % Sodium 139 (135-145) mmol/L Potassium 3.8 (3.5-5.0) mmol/L Chloride 103 (101-111) mmol/L Carbon Dioxide 27 (22-32) mmol/L Anion Gap 9 (2-11) mmol/L BUN 20 (6-24) mg/dL Creatinine 0.77 (0.51-0.95) mg/dL Est GFR ( Amer) 101.0 (>60) Est GFR (Non-Af Amer) 83.5 (>60) BUN/Creatinine Ratio 26.0 H (8-20) Glucose 110 H (70-100) mg/dL Lactic Acid 1.7 (0.5-2.0) mmol/L Calcium 8.8 (8.6-10.3) mg/dL Total Bilirubin 0.30 (0.2-1.0) mg/dL AST 16 (13-39) U/L ALT 22 (7-52) U/L Alkaline Phosphatase 126 H (34-104) U/L Total Protein 6.7 (6.4-8.9) g/dL Albumin 3.8 (3.2-5.2) g/dL Globulin 2.9 (2-4) g/dL Albumin/Globulin Ratio 1.3 (1-3) Beta HCG, Quant 0.62 mIU/mL 11/02/19 Range/Units 20:03 WBC (3.5-10.8) 10^3/uL RBC (3.70-4.87) 10^6 /uL Hgb (12.0-16.0) g/dL Hct (35-47) % MCV (80-97) fL MCH (27-31) pg MCHC (31-36) g/dL RDW (10-15) % Plt Count (150-450) 10^3/uL MPV (7.4-10.4) fL Neut % (Auto) % Lymph % (Auto) % Atlantic % (Auto) % Eos % (Auto) % Baso % (Auto) % Absolute Neuts (auto) (1.5-7.7) 10^3/ul Absolute Lymphs (auto) (1.0-4.8) 10^3/ul Absolute Monos (auto) (0-0.8) 10^3/ul Absolute Eos (auto) (0-0.6) 10^3/ul Absolute Basos (auto) (0-0.2) 10^3/ul Absolute Nucleated RBC 10^3/ul Nucleated RBC % ESR Carbon Monoxide Screen 4.3 H (<4.0) % Sodium (135-145) mmol/L Potassium (3.5-5.0) mmol/L Chloride (101-111) mmol/L Carbon Dioxide (22-32) mmol/L Anion Gap (2-11) mmol/L BUN (6-24) mg/dL Creatinine (0.51-0.95) mg/dL Est GFR ( Amer) (>60) Est GFR (Non-Af Amer) (>60) BUN/Creatinine Ratio (8-20) Glucose (70-100) mg/dL Lactic Acid (0.5-2.0) mmol/L Calcium (8.6-10.3) mg/dL Total Bilirubin (0.2-1.0) mg/dL AST (13-39) U/L ALT (7-52) U/L Alkaline Phosphatase (34-104) U/L Total Protein (6.4-8.9) g/dL Albumin (3.2-5.2) g/dL Globulin (2-4) g/dL Albumin/Globulin Ratio (1-3) Beta HCG, Quant mIU/mL Result Diagrams: 11/02/19 20:02 11/02/19 20:02 Lab Statement: Any lab studies that have been ordered have been reviewed, and results considered in the medical decision making process. Headache Course/Dx - Course Course Of Treatment: Patient complains of headache 5 days, with associated photophobia, dizziness, nausea. Patient states history of migraines, states these are her usual symptoms. Usual Imitrex and ibuprofen provided no relief. Denies, cough, sore throat, neck stiffness, CP, SOB, V/D, abdominal pain, change in urine, change in BM. Medical history is migraines. Vital signs within normal limits. Vital signs within normal limits. WBC 12. Labs otherwise unremarkable. Patient's symptoms improved with migraine cocktail. - Diagnoses Provider Diagnoses: Migraine Discharge ED - Sign-Out/Discharge Documenting (check all that apply): Patient Departure - Discharge Plan Condition: Stable Disposition: HOME Patient Education Materials: Migraine Headache (ED) Referrals: No Primary Care Phys,NOPCP [Primary Care Provider] - Additional Instructions: Follow-up with primary care. Return to the ED for any new or worsening symptoms. - Billing Disposition and Condition Condition: STABLE Disposition: Home
[2019-11-02] MEDS ORDERED: Dexamethasone IV* 4 MG/ML 5 ML VIAL (20 MG) ONE (21:32)
[2019-11-02 21:44] LABS: Erythrocyte Sed Rate 14 mm/Hr (0-19)
[2019-11-02] MEDS ORDERED: Magnesium Sulfate 2 GM IV* 2 GM/50 ML BAG IVPB ONE (22:58)
[2019-11-03] MEDS ORDERED: Acetaminophen TAB* 325 MG PO ONE (00:33)
[2019-11-03] MEDS ORDERED: diPHENhydraMINE IV* 50 MG/ML 1 ml VIAL (BENADRYL) IV ONE (00:45)
[2019-11-03 01:34] VITALS: BP 144/90
== END 2019-11-03 01:34 | disposition home or self-care (01) ==
LOC: ED 18:10
DX: G43.909 Migraine, unspecified, not intractable, without status migrainosus (principal); R11.0 Nausea; Z88.8 Allergy status to other drugs, medicaments and biological substances
CPT/HCPCS: 36415; 80053; 82375; 83605; 84702; 85025; 85652; 96365; 96366; 96372; 96375; 96376; 99283; A9270-GY; J1100; J1200; J1885; J2405; J3475